=== PATIENT | male | born 1940 | race Caucasian/White ===

== ENCOUNTER 2021-06-01 18:56 | Emergency (ER) | payer MEDICARE, OTHER, SELFPAY ==
[2021-06-01] VITALS (37 sets, daily range): BP systolic 93–157; BP diastolic 39–103; PULSE 74–108; RESP 14–26; TEMP 36.8; O2SAT 91–984
--- NOTE | 2021-06-01 19:00 | RT.EKG_ITS ---
APPROVED REPORT Exam: Resting ECG Reason for Exam: chest pain Patient Location: E HR:85 bpm ECG Measurements Heart Rate 85 AXIS [place] 188 P 42 QRSd 94 QRS 40 QT 344 T -46 QTc 409 Conclusion Sinus rhythm...normal P axis, V-rate 60- 99 Nonspecific T abnormalities, inferior leads...T <-0.10mV, II III aVF. T wave inversion III and aVF. No STEMI. I have reviewed and interpreted ECG and agree with software generated interpretation.
--- NOTE | 2021-06-01 19:30 | DI.RAD_ITS ---
Exam(s) XR CHEST 2V PA LATERAL EXAM: XR CHEST 2V PA LATERAL CLINICAL HISTORY: cough, sob, r/o acute disease TECHNIQUE: COMPARISON: No exams were available for comparison FINDINGS: AP and lateral views of the chest were obtained. The heart is mildly enlarged. There are multiple s ternal sutures consistent with prior CABG surgery. Lungs appear grossly clear. No pleural effusion. Note is made that a left marker may be in appropriately positioned, repeat PA chest requested to excl ude situs inversus. IMPRESSION: RADIATION DOSE DELIVERED: Total DLP
[2021-06-01 19:36] LABS: Abs Immature Grans 0.05 10^3/uL (0.0-0.06); Absolute Basophil Count 0.03 10^3/uL (0.0-0.2); Absolute Eosinophil Count 0.19 10^3/uL (0.0-0.7); Absolute Lymphocyte Count 0.26 10^3/uL (1.2-3.4); Absolute Monocyte Count 0.38 10^3/uL (0.1-0.8); Absolute Neutrophil Count 6.82 10^3/uL (1.2-6.7); Basophils % 0.4; Eosinophils % 2.5; HCT 39.3 % (40.0-50.0); HGB 13.2 g/dL (13.5-17.5); Immature Grans % 0.6; Lymphocytes % 3.4; MCHC 33.6 % (32.0-36.0); MCV 95.4 fL (80-95); MPV 9.6 fL (8.0-11.0); Monocytes % 4.9; Neutrophils % 88.2; Nucleated RBC 0 %; Platelet Count 230 10^3/uL (130-400); RBC 4.12 10^6/uL (4.36-5.78); RDW 11.9 % (11.8-14.1); RDW-SD 41.1 fL; WBC 7.73 10^3/uL (4.4-10.8)
--- NOTE | 2021-06-01 19:44 | ED.GENADUL_ITS ---
Discharge Plan Disposition Patient Disposition: HOME Condition: Stable Discharge Details Clinical Impression: Cough, Shortness of breath, Lesion of lung, COPD exacerbation, Bronchitis Primary Care Provider: Susi Bunch ED Provider: Toño Gresham Home Meds and New Rx's Prescriptions: New prednisone 50 MG tablet 50 mg PO DAILY Qty: 5 RF: 0 azithromycin 250 mg tablet 250 mg PO DAILY 4 Days Qty: 4 RF: 0 Continued carvedilol [Coreg] 6.25 mg Tablet 6.25 mg PO BID RF: 0 aspirin 81 mg Tablet,Delayed Release (Dr/Ec) 81 mg PO QAM RF: 0 levothyroxine 75 mcg Tablet 75 mcg PO DAILY RF: 0 tamsulosin [Flomax] 0.4 mg Capsule 0.4 mg PO RF: 0 bupropion HCl 75 mg Tablet 75 mg PO BID RF: 0 duloxetine [Cymbalta] 20 mg Capsule,Delayed Release(Dr/Ec) 20 mg PO DAILY RF: 0 pramipexole 0.375 mg Tablet Extended Release 24 Hr 0.375 mg PO QHS RF: 0 Discharge Instructions Instructions: Acute Bronchitis (ED) Additional Instructions: At this time your symptoms are concerning for mild asthma exacerbation/COPD exacerbation in conjunction with bronchitis. Because of your age and risk factors I am concerned that this may transition into pneumonia. Please take the antibiotic azithromycin as directed, as well as the steroid prednisone as directed. These have been sent to your pharmacy on file. Please also use the albuterol inhaler that we have given you. Take 2 puffs every 4-6 hours as needed. As we discussed together there was an incidental lesion noted in your lungs, please follow-up closely with your primary care provider in the next month to have this reassessed and reimaged. If you notice any worsening of your symptoms, or any new symptoms such as vomiting, diarrhea, fever, chills, shortness of breath, chest pain, numbness, weakness, or fainting , please return immediately to the emergency department for reevaluation. Please follow up with your primary care provider as soon as possible for reassessment and reevaluation. As always, it was a pleasure participating in your medical care today. Referrals: Susi Bunch NP [Primary Care Provider] - Medical Decision Making <Wendy Frausto DO - Last Filed: 06/01/21 20:55> 80-year-old male with a history of COPD, hypertension, hyperlipidemia, CABG, high flow shunt presents with dry cough and shortness of breath for the past few days, worse today. Triage note reported chest pain the patient denies this. She appears comfortable and nontoxic. Oxygen saturation mid 90s on room air. He has scattered wheezing throughout. No extremity swelling. EKG notes a rate of 82, sinus, T wave inversion in 3 and aVF, no STEMI, no old EKG to compare. Differential diagnosis includes acute exacerbation of COPD, pneumonia, CHF exacerbation. History and presentation does not appear consistent with ACS, dissection or PE. Will obtain screening labs, chest x-ray, and give DuoNeb and Solu-Medrol. Due to report of chest pain in triage, will obtain a repeat troponin and EKG. Case endorsed such switch to follow-up on labs and imaging and final disposition. If symptoms improve and work-up unremarkable, likely plan for discharge home. Medical Records Medical records reviewed: Yes I reviewed the patient's medical records. ECG Data Attestation: I personally reviewed and interpreted this ECG (s) as follows: Interpretation: Rate of 85, sinus, T wave inversion in [address] No acute ST elevation or depression. [place] 188. QTc 409. <Toño Gresham, - Last Filed: 06/01/21 23:04> Patient was signed out to me by Dr. Frausto. Please refer to her HPI, physical exam assessment and plan. At time of signout we are pending repeat troponin, proBNP and chest x-ray. Chest x-ray results have returned, and show a small right apical nodular opacity, no other significant abnormalities. White count unremarkable, renal function and electrolytes normal. Troponin normal, proBNP unremarkable. No signs of significant fluid overload. Repeat lung exam demonstrates notably improved breath sounds. Patient states subjectively that he feels much better and feels comfortable going home. We will give the patient an inhaler with a spacer for home use. Suspect a component of reactive airway disease/COPD. Will give prescription for steroids from use. Based on the patient's age and risk factors no indication for inpatient admission, however I do feel that it would be beneficial to prescribe azithromycin to prevent potential worsening pulmonary issues and/or significant infection. At this time clinically he appears to demonstrate symptoms consistent with mild to moderate bronchitis. Discussed red flags which to return. is at bedside and plan was also explained to her. I have extensively reviewed the treatment plan and discharge instructions with the patient and their family. I have addressed all patient concerns at this time. The patient and family was made aware of what symptoms to monitor for that would warrant a return to the emergency department. Discussed the plan with the patient and family, they demonstrate verbal understanding and agreement with our assessment and plan at this time. The documentation in this chart was dictated using [employer] dictation software. Please excuse any dictation errors. FINDINGS: Lungs: Findings suggests volume loss in the right base. This could be postsurgical. A small right apical nodular opacity is also seen in measures about 12 mm. Pleural spaces: Unremarkable. No pleural effusion. No pneumothorax. Heart/Mediastinum: Mild cardiac enlargement. Postsurgical changes noted. Bones/joints: Unremarkable. IMPRESSION: Volume loss in the right base of uncertain origin. A small right apical nodular opacity. Correlation with priors is recommended, otherwise consider CT to exclude an endobronchial lesion. Thank you for allowing us to participate in the care of your patient. Dictated and Authenticated by: Cesar Nicole MD 06/01/2021 9:08 PM Eastern Time ([place] & [place]) HPI <Wendy Frausto, - Last Filed: 06/01/21 20:55> General Mode of arrival: ambulatory . Date/Time Provider Initiated Documentation: 06/01/21 19:04 . Limitations to Documentation: no limitations . Information obtained by: patient and family . HPI Narrative: Patient is a 80-year-old male with a history of COPD, CABG 2008, hypertension, hyperlipidemia, hydrocephalus with shunt, hypothyroidism who presents for cough and shortness of breath for the past 2 days, worse today. Denies any known sputum production. states that patient appeared more weak and fatigued tod ay. He does use a walker for ambulation but states he needs more assistance than usual. Patient and recently moved here from [place] 1 month ago and had their first follow-up appointment with Susi Bunch in August. Denies any leg pain or swelling. Denies any fever. Patient states he has had a normal appetite today. Triage note stated that patient had complained of some chest pain but he denies this at present. Related Data Home Medications Medication Instructions Recorded Confirmed aspirin 81 mg PO QAM 06/01/21 06/01/21 azithromycin 250 mg PO DAILY 4 Days #4 tab 06/01/21 bupropion HCl 75 mg PO BID 06/01/21 06/01/21 carvedilol [Coreg] 6.25 mg PO BID 06/01/21 06/01/21 duloxetine [Cymbalta] 20 mg PO DAILY 06/01/21 06/01/21 levothyroxine 75 mcg PO DAILY 06/01/21 06/01/21 pramipexole 0.375 mg PO QHS 06/01/21 06/01/21 prednisone 50 mg PO DAILY #5 tab 06/01/21 tamsulosin [Flomax] 0.4 mg PO 06/01/21 Previous Rx's Medication Instructions Recorded azithromycin 250 mg PO DAILY 4 Days #4 tab 06/01/21 prednisone 50 mg PO DAILY #5 tab 06/01/21 Allergies Allergy/AdvReac Type Severity Reaction Status Date / Time No Known Allergies Allergy Unverified 06/01/21 22:18 General Stated Complaint: SOB BAUTISTA: 2 Review of Systems <Wendy Frausto DO - Last Filed: 06/01/21 20:55> All systems reviewed & are unremarkable except as noted in HPI and below Constitutional Constitutional: Reports as per HPI, Denies chills and Denies fever(s) Eyes Eyes: Denies blurry vision ENT Ears, Nose, Mouth, and Throat: Denies dizziness, Denies sore throat and Denies throat swelling Cardiovascular Cardiovascular: Denies chest pain and Reports dyspnea Respiratory Respiratory: Reports cough and Reports dyspnea Gastrointestinal Gastrointestinal: Denies abdominal pain, Denies diarrhea and Denies vomiting Genitourinary Genitourinary: Denies hematuria and Denies dysuria Musculoskeletal Musculoskeletal: Denies back pain and Denies numbness Integumentary/Breasts Skin/Breast: Denies lesions and Denies rash Neurologic Neurologic: Denies dizziness, Denies localized weakness and Denies numbness Allergic/Immunologic Allergic/Immunologic: Denies throat swelling PFSH <Wendy Frausto DO - Last Filed: 06/01/21 20:55> Medical History (Updated 06/01/21 @ 21:37 by Toño Gresham DO) COPD (chronic obstructive pulmonary disease) HTN (hypertension) Hx of hyperlipidemia Hydrocephalus with shunt Hypothyroidism Thyroid disease Surgical History (Updated 06/01/21 @ 20:50 by Wendy Frausto DO) History of fusion of cervical spine Hx of CABG Family History (Updated 05/25/21 @ 13:31 by Malina Patino) Mother , 87 Cancer Father , 48 Heart disease Brother No problems noted. Daughter No problems noted. Daughter No problems noted. Maternal Grandfather , 64 Heart disease Paternal Grandfather , 64 Heart disease Maternal Grandmother , 97 No problems noted. Paternal Grandmother , 66 No problems noted. Social History (Updated 05/25/21 @ 13:29 by Malina Patino) Smoking/Tobacco Use Status: Former Tobacco Use tobacco type: cigarettes and pipe Quit Date: 09/02/82 Tobacco: How many years used: 31 Second Hand Exposure: No Smoking risk assessment performed?: Yes Alcohol Intake: current Alcohol Intake frequency: holidays/special occasions only Alcohol type: wine and hard liquor Drug use: Never Household members: spouse and family Housing: apartment Communication Needs: None Do you need help understanding health information?: Rarely Pets and animals: Yes Pets and animals: dog(s) Sexually active: No Do you think of yourself as: straight/heterosexual Current gender identity: male What is your relationship status?: How often do you talk on the phone with friends or family?: never How often do you get together with friends or relatives?: twice per week How often do you attend jewish or mosque services?: 1-3 times per year Do you belong to any clubs or organized social groups?: no Panel score (0-1 are the most socially isolated patients): 1 What type of physical activity do you participate in: walking Duration: < 15 minutes/day Frequency: daily Deyanira/[employer]ist: Jehovah'S Witness Special deyanira needs: Yes (last rights) Seatbelt use: always Helmet use: Yes Helmet use: always Drive intox or ride w/intox hazmat tanker driver: No Do you feel safe at home: Yes Do you feel safe in your relationship?: Yes Exam <Wendy Frausto DO - Last Filed: 06/01/21 20:55> Const General: cooperative and no acute distress HENMT Head: normal to inspection Ears: hearing grossly normal bilaterally and external ears normal Face and sinus: normal facial exam Throat: posterior oropharynx normal Eyes General: appearance normal, both eyes and all related structures EOM: EOM intact bilaterally Neck Neck: normal visual inspection and No submandibular swelling Lymphatic: no lymphadenopathy noted Chest Chest: normal inspection of the chest and no tenderness Resp Effort & Inspection: normal respiratory effort and able to speak in complete sentences Auscultation: diminished lung sounds bilaterally in the lower lung negron and wheezes scattered wheezes Cardio Rate: regular rate Rhythm: regular rhythm GI Inspection: normal to inspection Palpation: soft, not firm, not rigid and nontender Auscultation: normal bowel sounds Skin General skin exam: no rashes or lesions noted Neuro General: patient alert, patient awake and patient oriented x3 Cognition: normal cognition Speech: speech normal Motor: muscle tone normal throughout Sensory Exam: no sensory deficits noted Extrem General: normal to inspection, full ROM, capillary refill normal, no calf tenderness bilaterally and no edema Psych Appearance: grossly normal Mental Status: mental status grossly normal Speech and Movement: speech and movement normal Affect: normal affect Course <Wendy Frausto, DO - Last Filed: 06/01/21 20:55> Vital Signs Vital signs: Vital Signs Temperature 98.3 F 06/01/21 19:09 Pulse 89 06/01/21 19:09 Respiratory Rate 18 06/01/21 19:09 Blood Pressure 150/68 H 06/01/21 19:09 Pulse Oximetry 93 06/01/21 19:09 Temperature 98.3 F 06/01/21 19:09 Temperature Source Oral 06/01/21 19:09 Pulse 89 06/01/21 19:09 Respiratory Rate 18 06/01/21 19:13 Respiratory Effort 06/01/21 19:13 Blood Pressure 150/68 H 06/01/21 19:09 Pulse Oximetry 93 06/01/21 19:09 Lab/Test Results Lab/Test Results: Laboratory Tests Range/Units 06/01/21 19:30 WBC (4.4-10.8) 10^3/uL 7.73 RBC (4.36-5.78) 10^6/uL 4.12 L Hgb (13.5-17.5) g/dL 13.2 L Hct (40.0-50.0) % 39.3 L MCV (80-95) fL 95.4 H MCH (27.0-33.0) pg 32.0 MCHC (32.0-36.0) % 33.6 RDW (11.8-14.1) % 11.9 Plt Count (130-400) 10^3/uL 230 MPV (8.0-11.0) fL 9.6 Immature Gran % 0.6 Neutrophils % 88.2 Lymphocytes % 3.4 Monocytes % 4.9 Eosinophils % 2.5 Basophils % 0.4 Nucleated RBC % % 0 Absolute Neutrophils (1.2-6.7) 10^3/uL 6.82 H Absolute Lymphocytes (1.2-3.4) 10^3/uL 0.26 L Absolute Monocytes (0.1-0.8) 10^3/uL 0.38 Absolute Eosinophils (0.0-0.7) 10^3/uL 0.19 Absolute Basophils (0.0-0.2) 10^3/uL 0.03 Sign Out <Wendy Frausto DO - Last Filed: 06/01/21 20:55> Sign Out Data: Sign Out Comment: Follow-up on labs and imaging and final disposition. Plan for repeat troponin and EKG. If patient symptoms improved and work-up unremarkable, likely can plan for discharge to home. Last updated by Wendy Frausto DO at 06/01/21 19:57
[2021-06-01 19:51] LABS: ALT 35 U/L (16-63); AST 27 U/L (15-37); Albumin 3.4 g/dL (3.4-5.0); Alkaline Phosphatase 84 U/L (46-116); Anion Gap 9.5 mmol/L (3-11); BUN 16 mg/dL (7-18); Bilirubin, Total 0.5 mg/dL (0.2-1.0); CO2 25.5 mmol/L (21.0-32.0); Calcium 8.8 mg/dL (8.5-10.1); Chloride 106 mmol/L (98-107); Glucose 97 mg/dL (74-106); Magnesium 1.8 mg/dL (1.8-2.4); Potassium 4.2 mmol/L (3.5-5.1); Sodium 141 mmol/L (136-145); Total Protein 7.3 g/dL (6.4-8.2)
[2021-06-01 19:53] LABS: Troponin I < 0.05 ng/mL (<0.06)
[2021-06-01] MEDS: Albuterol/Ipratropium 3 ML UPD VIAL UPD ×2 (19:54→21:47)
[2021-06-01] MEDS: methylPREDNISolone SUCC 125 MG VIAL IVP (19:54)
--- NOTE | 2021-06-01 21:08 | DI.VRAD_ITS ---
PROCEDURE INFORMATION: Exam: XR Chest Exam date and time: 06/01/2021 8:36 PM Age: 80 years old Clinical indication: Other: Cough, SOB, R/O acute disease TECHNIQUE: Imaging protocol: XR of the chest. Views: 2 views. COMPARISON: No relevant prior studies available. FINDINGS: Lungs: Findings suggests volume loss in the right base. This could be postsurgical. A small right apical nodular opacity is also seen in measures about 12 mm. Pleural spaces: Unremarkable. No pleural effusion. No pneumothorax. Heart/Mediastinum: Mild cardiac enlargement. Postsurgical changes noted. Bones/joints: Unremarkable. IMPRESSION: Volume loss in the right base of uncertain origin. A small right apical nodular opacity. Correlation with priors is recommended, otherwise consider CT to exclude an endobronchial lesion. Dictated and Authenticated by: Cesar Nicole MD. Ordering:EPHRAIM Nguyen MD
[2021-06-01 21:32] LABS: NT-proBNP 357 pg/mL (<300)
[2021-06-01] MEDS: Albuterol HFA 8 GM 60 PUFF INH IH (21:39)
[2021-06-01] MEDS: AZITHROMYCIN 500 MG in Normal Saline 250 ML 250 MG IVPB (21:39)
[2021-06-01 22:10] LABS: Troponin I < 0.05 ng/mL (<0.06)
[2021-06-01] MEDS: Inhaler, Assist Device 1 EACH MC (23:01)
--- NOTE | 2021-06-01 23:37 | NUR.NOTE ---
Nursing Note: REFERAL SENT TO CM TO FOLLOW UP FOR GETTING HOME SUPPORTS IN PLACE 06/01/21
== END 2021-06-01 23:20 | disposition home or self-care (01) ==
LOC: ER 23:00
PROVIDERS: Physician Assistant; Emergency Provider Student in an Organized Health Care Education/Training Program
DX: J44.1 Chronic obstructive pulmonary disease with (acute) exacerbation (principal); R05 Cough; R06.02 Shortness of breath; R91.8 Other nonspecific abnormal finding of lung field; Z87.891 Personal history of nicotine dependence
CPT/HCPCS: 80053; 93005; 94640; 96365; 96375; 99284; 71046; 83735; 83880; 84484; 85025; 93010; J0456; J2930; J7620

== ENCOUNTER 2021-09-24 11:47 | Emergency (ER) | payer MEDICARE, OTHER, SELFPAY ==
[2021-09-24 11:57] VITALS: BP 135/61; PULSE 90; RESP 16; TEMP 36.6; O2SAT 98
[2021-09-24 12:00] VITALS: BP 124/67; PULSE 91; RESP 20; O2SAT 96
--- NOTE | 2021-09-24 12:00 | RT.EKG_ITS ---
APPROVED REPORT Exam: Resting ECG Reason for Exam: shortness of breath Patient Location: E HR:84 bpm ECG Measurements Heart Rate 84 AXIS [place] 182 P 39 QRSd 100 QRS 44 QT 346 T -61 QTc 409 Conclusion Sinus rhythm...normal P axis, V-rate 60- 99 Nonspecific T abnormalities, inferior leads...T <-0.10mV, II III aVF. Sinus. T wave inversion inferior leads. No STEMI. I have reviewed and interpreted ECG and agree with software generated interpretation.
--- NOTE | 2021-09-24 12:09 | ED.GENADUL_ITS ---
Discharge Plan Disposition Patient Disposition: HOME Condition: Stable Discharge Details Clinical Impression: Cough Primary Care Provider: Susi Bunch ED Provider: Wendy Frausto Home Meds and New Rx's Prescriptions: New doxycycline hyclate 100 mg tablet 100 mg PO BID 7 Days Qty: 14 RF: 0 prednisone 20 mg tablet See Rx Instructions .ROUTE .COMPLEX Qty: 12 RF: 0 benzonatate 100 mg capsule 100 mg PO TID PRN (Reason: cough) Qty: 10 RF: 0 Continued donepezil 10 mg tablet 10 mg PO DAILY Qty: 90 RF: 0 pramipexole 0.375 mg tablet extended release 24 hr 0.375 mg PO QHS Qty: 30 RF: 0 levothyroxine 75 mcg tablet 75 mcg PO DAILY Qty: 90 RF: 0 carvedilol [Coreg] 6.25 mg tablet 6.25 mg PO BID Qty: 90 RF: 0 duloxetine [Cymbalta] 20 mg capsule,delayed release(DR/EC) 60 mg PO DAILY RF: 0 aspirin 81 mg Tablet,Delayed Release (Dr/Ec) 81 mg PO QAM RF: 0 Discharge Instructions Instructions: Acute Cough (ED) Additional Instructions: Drink plenty of fluids and get plenty of rest. You are being sent home with an albuterol inhaler to use as needed and directed for cough, wheezing or shortness of breath. Prescriptions for cough medication, antibiotics and steroids have been sent electronically to your pharmacy. Start the cough medication today and take as needed and directed for coughing. You do not need to start the antibiotics and steroids unless your symptoms do not improve or worsen over the next few days such as persistent fevers, coughing up yellow or green mucus, or worsening shortness of breath. Follow-up with your primary care doctor in 1 week. Return to the emergency department with any worsening or new concerning symptoms. Stand Alone Forms: PENDING COVID-19 TESTING Discharge Data Discharge Physician: Wendy Frausto Medical Decision Making 81-year-old male with a history of COPD, hypertension, hyperlipidemia who presents for wet cough, shortness of breath, increased weakness and decreased appetite for the past 7 to 10 days. EKG notes a rate of 84, sinus, T wave inversion in inferior leads, no STEMI and nondiagnostic. Vitals within normal limits. Patient appears in no acute respiratory distress. He has rattling and rhonchi noted in right chest. No wheezing or crackles noted. No lower extremity edema. Labs and imaging reviewed. Normal white blood cell count. Troponin negative. BNP within normal limits. Chest x-ray negative for acute findings. Patient reassessed and he feels better. Oxygen saturation 97% on room air. Lung sounds reassessed and no wheezing or crackles noted. Patient and feel comfortable with patient going home. Discussed that his symptoms could be a viral process and do not see an indication for acute antibiotics at this time but as we are going into the holiday weekend, will send home with an albuterol inhaler as well as prescriptions for cough medication, antibiotics and steroids. Advised to hold on the antibiotics steroids unless symptoms do not improve or worsen over the next few days. Advised to follow up with the primary care doctor for re-evaluation. Usual and customary return precautions given prior to discharge. Medical Records Medical records reviewed: Yes I reviewed the patient's medical records. Imaging Data Radiologic Study: Radiologist's impression: XR CHEST 2V PA LATERAL CLINICAL HISTORY: cough, sob, r/o acute chf vs pneumonia TECHNIQUE: COMPARISON: CR,XR XR CHEST 2V PA LATERAL from 06/01/2021 FINDINGS: The heart is not enlarged. There are mediastinal vascular clips consistent with prior CABG surgery. There is an apparent ventriculoperitoneal shunt. The lungs appear grossly clear. No pleural effusion is seen. IMPRESSION: No evidence of acute process. Lab Data Lab results reviewed: Yes I reviewed the patient's lab results. Labs: Laboratory Tests Range/Units 09/24/21 09/24/21 12:20 12:20 WBC (4.4-10.8) 10^3/uL 8.36 RBC (4.36-5.78) 10^6/uL 4.35 L Hgb (13.5-17.5) g/dL 13.6 Hct (40.0-50.0) % 42.0 MCV (80-95) fL 96.6 H MCH (27.0-33.0) pg 31.3 MCHC (32.0-36.0) % 32.4 RDW (11.8-14.1) % 12.0 Plt Count (130-400) 10^3/uL 240 MPV (8.0-11.0) fL 9.2 Immature Gran % 0.4 Neutrophils % 77.5 Lymphocytes % 10.8 Monocytes % 7.4 Eosinophils % 3.5 Basophils % 0.4 Nucleated RBC % % 0 Absolute Neutrophils (1.2-6.7) 10^3/uL 6.49 Absolute Lymphocytes (1.2-3.4) 10^3/uL 0.90 L Absolute Monocytes (0.1-0.8) 10^3/uL 0.62 Absolute Eosinophils (0.0-0.7) 10^3/uL 0.29 Absolute Basophils (0.0-0.2) 10^3/uL 0.03 Sodium (136-145) mmol/L 140 Potassium (3.5-5.1) mmol/L 3.8 Chloride (98-107) mmol/L 105 Carbon Dioxide (21.0-32.0) mmol/L 27.1 Anion Gap (3-11) mmol/L 7.9 BUN (7-18) mg/dL 24 H Creatinine (0.70-1.30) mg/dL 1.2 Estimated GFR/1.73 m2 (mL/min/1.73m2) 57.82 Glucose (74-106) mg/dL 97 Calcium (8.5-10.1) mg/dL 9.1 Magnesium (1.8-2.4) mg/dL 2.0 Total Bilirubin (0.2-1.0) mg/dL 0.6 AST (15-37) U/L 11 L ALT (16-63) U/L 15 L Alkaline Phosphatase (46-116) U/L 90 Troponin I (<0.06) ng/mL < 0.05 NT-Pro-B Natriuret Pep (<300) pg/mL 128 Total Protein (6.4-8.2) g/dL 7.6 Albumin (3.4-5.0) g/dL 3.4 ECG Data Attestation: I personally reviewed and interpreted this ECG (s) as follows: Interpretation: Rate of 84, sinus, T wave inversion in inferior leads. No STEMI. HI 182. QRS 100. QTc 409. HPI General Mode of arrival: wheelchair . Date/Time Provider Initiated Documentation: 09/24/21 11:52 . Limitations to Documentation: physical limitation . Information obtained by: patient and family . HPI Narrative: Patient is an 81-year-old male with a history of COPD, hypertension, hyperlipidemia presents for wet cough, shortness of breath, increased weakness and decreased appetite for the past 7 to 10 days. Patient presents with at bedside who states that patient uses a walker but has been shuffling more lately which she thinks is due to his weakness. She states she has not been eating or drinking much. Patient has a wet cough but denies any sputum production. Patient denies any chest pain, vomiting or diarrhea. states that he has had soft or looser stools than usual but denies any rectal bleeding. Related Data Home Medications Medication Instructions Recorded Confirmed aspirin 81 mg PO QAM 06/01/21 09/24/21 benzonatate 100 mg PO TID PRN #10 cap 09/24/21 carvedilol 6.25 mg tablet 6.25 mg PO BID #90 tab 09/24/21 09/24/21 donepezil 10 mg tablet 10 mg PO DAILY #90 tab 09/24/21 09/24/21 doxycycline hyclate 100 mg PO BID 7 Days #14 tab 09/24/21 duloxetine [Cymbalta] 60 mg PO DAILY 09/24/21 09/24/21 levothyroxine 75 mcg tablet 75 mcg PO DAILY #90 tab 09/24/21 09/24/21 pramipexole 0.375 mg 0.375 mg PO QHS #30 tab 09/24/21 09/24/21 tablet,extended release 24 hr prednisone See Rx Instructions .ROUTE 09/24/21 .COMPLEX #12 tab Previous Rx's Medication Instructions Recorded benzonatate 100 mg PO TID PRN #10 cap 09/24/21 carvedilol 6.25 mg tablet 6.25 mg PO BID #90 tab 09/24/21 donepezil 10 mg tablet 10 mg PO DAILY #90 tab 09/24/21 doxycycline hyclate 100 mg PO BID 7 Days #14 tab 09/24/21 levothyroxine 75 mcg tablet 75 mcg PO DAILY #90 tab 09/24/21 pramipexole 0.375 mg 0.375 mg PO QHS #30 tab 09/24/21 tablet,extended release 24 hr prednisone See Rx Instructions .ROUTE 09/24/21 .COMPLEX #12 tab Allergies Allergy/AdvReac Type Severity Reaction Status Date / Time clindamycin Allergy Intermediate rash/hives Verified 09/24/21 12:00 General Stated Complaint: RespSymp BAUTISTA: 3 Review of Systems All systems reviewed & are unremarkable except as noted in HPI and below Constitutional Constitutional: Reports as per HPI, Denies chills, Denies fever(s), Reports poor appetite and Reports weakness Eyes Eyes: Denies blurry vision ENT Ears, Nose, Mouth, and Throat: Denies dizziness, Denies sore throat and Denies throat swelling Cardiovascular Cardiovascular: Denies chest pain and Reports dyspnea Respiratory Respiratory: Reports cough and Reports dyspnea Gastrointestinal Gastrointestinal: Denies abdominal pain, Denies diarrhea and Denies vomiting Genitourinary Genitourinary: Denies hematuria and Denies dysuria Musculoskeletal Musculoskeletal: Denies back pain and Denies numbness Integumentary/Breasts Skin/Breast: Denies lesions and Denies rash Neurologic Neurologic: Denies dizziness, Denies localized weakness, Denies numbness and Reports weakness Allergic/Immunologic Allergic/Immunologic: Denies throat swelling [facility] Active Problem List (Updated 09/24/21 @ 14:43 by Wendy Frausto DO) Cough (Acute) Alzheimer disease (Chronic) Advanced directives, counseling/discussion (Acute) Poor balance (Acute) Weakness generalized (Acute) At high risk for falls (Acute) Hypothyroidism (Acute) Cough (Acute) Shortness of breath (Acute) Lesion of lung (Acute) Medical History (Updated 09/24/21 @ 14:43 by Wendy Frausto DO) Bronchitis COPD (chronic obstructive pulmonary disease) HTN (hypertension) Hx of hyperlipidemia Hydrocephalus with shunt Thyroid disease Surgical History 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 Daughter No problems noted. Daughter No problems noted. Maternal Grandfather , 64 Heart disease Paternal Grandfather , 64 Heart disease Maternal Grandmother , 97 No problems noted. Paternal Grandmother , 66 No problems noted. Social History (Updated 08/28/21 @ 07:19 by Arnel Kumari) Smoking/Tobacco Use Status: Former Tobacco Use tobacco type: cigarettes and pipe Quit Date: 09/02/82 Tobacco: How many years used: 31 Second Hand Exposure: No Smoking risk assessment performed?: Yes Alcohol Intake: current Alcohol Intake frequency: holidays/special occasions only Alcohol type: wine and hard liquor Drug use: Never Household members: spouse and family Housing: apartment Communication Needs: None Do you need help understanding health information?: Rarely Pets and animals: Yes Pets and animals: dog(s) Sexually active: No Do you think of yourself as: straight/heterosexual Current gender identity: male What is your relationship status?: How often do you talk on the phone with friends or family?: never How often do you get together with friends or relatives?: twice per week How often do you attend roman catholic or restorationist services?: 1-3 times per year Do you belong to any clubs or organized social groups?: no Panel score (0-1 are the most socially isolated patients): 1 What type of physical activity do you participate in: walking Duration: < 15 minutes/day Frequency: daily Deyanira/Orthodoxy: Gnosticist Special deyanira needs: Yes (last rights) Seatbelt use: always Helmet use: Yes Helmet use: always Drive intox or ride w/intox food service driver: No Do you feel safe at home: Yes Do you feel safe in your relationship?: Yes Exam Const General: cooperative and no acute distress HENMT Head: normal to inspection Face and sinus: normal facial exam Eyes General: appearance normal, both eyes and all related structures EOM: EOM intact bilaterally Neck Neck: normal visual inspection and No submandibular swelling Lymphatic: no lymphadenopathy noted Chest Chest: normal inspection of the chest and no tenderness Resp Effort & Inspection: normal respiratory effort and able to speak in complete sentences Auscultation: clear to auscultation bilaterally and rhonchi (rattling) right upper and right lower Cardio Rate: regular rate Rhythm: regular rhythm GI Inspection: normal to inspection Palpation: soft, not firm, not rigid and nontender Auscultation: normal bowel sounds Skin General skin exam: no rashes or lesions noted Neuro General: patient alert, patient awake and patient oriented x3 Cognition: normal cognition Speech: speech normal Motor: muscle tone normal throughout Sensory Exam: no sensory deficits noted Extrem General: normal to inspection, full ROM, capillary refill normal, no calf tenderness bilaterally and no edema Psych Appearance: grossly normal Mental Status: mental status grossly normal Speech and Movement: speech and movement normal Affect: normal affect Course Vital Signs Vital signs: Vital Signs Temperature 97.9 F 09/24/21 11:57 Pulse 90 09/24/21 11:57 Respiratory Rate 16 09/24/21 11:57 Blood Pressure 135/61 09/24/21 11:57 Pulse Oximetry 98 09/24/21 11:57 Temperature 97.9 F 09/24/21 11:57 Temperature Source Skin 09/24/21 11:57 Pulse 90 09/24/21 11:57 Respiratory Rate 16 09/24/21 11:57 Respiratory Effort Non-Labored 09/24/21 12:03 Blood Pressure 135/61 09/24/21 11:57 Blood Pressure Position Sitting 09/24/21 11:57 Pulse Oximetry 98 09/24/21 11:57 Oxygen Delivery Method Room Air 09/24/21 11:57 Oxygen Flow Rate 0 09/24/21 11:57
[2021-09-24 12:15] VITALS: BP 119/63; PULSE 91; RESP 16; O2SAT 98
[2021-09-24 12:26] LABS: Abs Immature Grans 0.03 10^3/uL (0.0-0.06); Absolute Basophil Count 0.03 10^3/uL (0.0-0.2); Absolute Eosinophil Count 0.29 10^3/uL (0.0-0.7); Absolute Monocyte Count 0.62 10^3/uL (0.1-0.8); Absolute Neutrophil Count 6.49 10^3/uL (1.2-6.7); Basophils % 0.4; Eosinophils % 3.5; HGB 13.6 g/dL (13.5-17.5); Immature Grans % 0.4; Lymphocytes % 10.8; MCH 31.3 pg (27.0-33.0); MCHC 32.4 % (32.0-36.0); MCV 96.6 fL (80-95); MPV 9.2 fL (8.0-11.0); Monocytes % 7.4; Neutrophils % 77.5; Nucleated RBC 0 %; Platelet Count 240 10^3/uL (130-400); RBC 4.35 10^6/uL (4.36-5.78); RDW-SD 42.5 fL; WBC 8.36 10^3/uL (4.4-10.8)
--- NOTE | 2021-09-24 12:40 | DI.RAD_ITS ---
Exam(s) XR CHEST 2V PA LATERAL EXAM: XR CHEST 2V PA LATERAL CLINICAL HISTORY: cough, sob, r/o acute chf vs pneumonia TECHNIQUE: COMPARISON: CR,XR XR CHEST 2V PA LATERAL from 06/01/2021 FINDINGS: The heart is not enlarged. There are mediastinal vascular clips consistent with prior CABG surgery. There is an apparent ventriculoperitoneal shunt. The lungs appear grossly clear. No pleural effusi on is seen. IMPRESSION: No evidence of acute process. RADIATION DOSE DELIVERED: Total DLP
[2021-09-24 12:46] LABS: ALT 15 U/L (16-63); AST 11 U/L (15-37); Albumin 3.4 g/dL (3.4-5.0); Alkaline Phosphatase 90 U/L (46-116); Anion Gap 7.9 mmol/L (3-11); BUN 24 mg/dL (7-18); Bilirubin, Total 0.6 mg/dL (0.2-1.0); CO2 27.1 mmol/L (21.0-32.0); CREATININE 1.2 mg/dL (0.70-1.30); Calcium 9.1 mg/dL (8.5-10.1); Chloride 105 mmol/L (98-107); Estimated GFR 57.82 (mL/min/1.73m2); Glucose 97 mg/dL (74-106); NT-proBNP 128 pg/mL (<300); Potassium 3.8 mmol/L (3.5-5.1); Sodium 140 mmol/L (136-145); Total Protein 7.6 g/dL (6.4-8.2)
[2021-09-24 12:47] LABS: Troponin I < 0.05 ng/mL (<0.06)
[2021-09-24] MEDS: Normal Saline 250 ML IV (13:27)
[2021-09-24] MEDS: Albuterol/Ipratropium 3 ML UPD VIAL UPD (13:30)
[2021-09-24 14:29] VITALS: BP 135/71; PULSE 85; TEMP 36.4; O2SAT 100
[2021-09-24] MEDS: Albuterol HFA 8 GM 60 PUFF INH IH (14:55)
[2021-09-24 15:15] VITALS: BP 133/67; PULSE 88; RESP 18; TEMP 37; O2SAT 98
[2021-09-25 15:49] LABS: COVID-19 RT-PCR UVMMC Result Negative (Negative)
== END 2021-09-24 17:28 | disposition home or self-care (01) ==
PROVIDERS: Emergency Provider Physician Assistant
DX: R05.9 Cough, unspecified (principal); R06.02 Shortness of breath; Z20.822 Contact with and (suspected) exposure to COVID-19
CPT/HCPCS: 36415; 80053; 93005; 96360; 99284; U0003; U0005; 71046; 83735; 83880; 84484; 85025; 93010; J7620

== ENCOUNTER 2021-10-04 01:41 | Outpatient (CLI) | payer MEDICARE, OTHER, SELFPAY ==
--- OUTSIDE RECORDS SUMMARY | 2021-10-04 01:43 | XMS_ITS | Encounter Summary ---
:[address] [facility] [address] [place] [address] Care Team Providers Name Role Phone Angelika Jasso DO Unavailable Elizabeth Jerry PA-C Primary Care Provider [phone] Romero, DO Unavailable Reason for Visit Auth/Cert Specialty Diagnoses / Procedures Referred By Contact Refer red To Contact Referral ID Status Reason Start Date Expiration Date Visits Requ ested Visits Authorized [id number] 1 Encounter Details Date Type Department Care Team Description 09/08/2019 Home Care Visit [facility] Aman Rachel, PT PT OASIS DISCHARGE [facility] [phone] [address] [place] [address] (Work) [address] [place] [address] Social History Tobacco Use Types Packs/Day Years Used Date Never Assessed Sex Assigned at Date Recorded Not on file documented as of this encounter Last Filed Vital Signs Vital Sign Reading Time Taken Comments Blood Pressure 129/59 09/08/2019 9:03 AM [facility] Pulse 76 09/08/2019 9:03 AM [facility] Temperature - - Respiratory Rate - - Oxygen Saturation 96% 09/08/2019 9:03 AM [facility] Inhaled Oxygen Concentration - - Weight - - Height - - Body Mass Index - - documented in this encounter Plan of Treatment Not on filedocumented as of this encounter Visit Diagnoses Not on filedocumented in this encounter Home Health Visit - Care Plan Visit Details Visit Type - PT OASIS DISCHARGE Discipline - Physical Therapy Problems Problem Description Start Date Status Goals Interventions Physical PHYSICAL THERAPY 06/16/2019 Active 1 goal linked to Therapy General GENERAL ASSESSMENT scheduled/do cumen Assessment jessee intervention Disciplines: Physical Therapy Estim/Ultrasoun Patient is 06/16/2019 Active 1 goal linked to d for pain experiencing pain scheduled/documen control jessee intervention Disciplines: Physical Therapy Home Safety Assessment of home 06/16/2019 Active 1 goal linked to Disciplines: environment/patien scheduled/documen Physical t status indicates jessee intervention Therapy that patient is at increased risk for falls. PT Gait Gait evaluation 06/16/2019 Active 1 goal linked to 2 g oal Training and training in scheduled/documen interve ntions Disciplines: appropriate use of jessee intervention sched uled/document Physical assistive devices ed in t his visit Therapy PT Establish or Develop or modify 06/16/2019 Active 1 goal linked to 1 goal Upgrade Home home exercise scheduled/documen in tervention Program program jessee intervention scheduled/d ocument Disciplines: ed in this visi t Physical Therapy PT Transfer Patient 06/16/2019 Active 1 goal linked to Training demonstrates scheduled/documen Disciplines: impaired ability jessee intervention Physical to perform Therapy transfers and/or bed mobility safely Goals Goal Associated Problem Outcome Goal Met? Visit Not es Physical Therapy General Physical Therapy General Completed Yes Assessment Assessment Description: Patient will demonstrate an overall improvement in health status with the implementation of appropriate interventions by the end of the episode of care. Pain Estim/Ultrasound for Completed Yes Description: pain control Patient/caregiver will verbalize understanding of pain control recommendations and pain will be controlled to patient's satisfaction by the end of the episode of care. Home Safety Home Safety Completed Yes Description: Patient/caregiver will implement strategies to reduce fall risk evidenced by reduced frequency of falls and/or demonstrate improvement on standardized testing. Patient/caregiver demonstrates independence via teach back method for strategies to prevent falls, all by end of episode of care. PT Gait Training PT Gait Training Completed Yes Description: Patient will ambulate 400 feet with FWW to enable him to gain independence in and out of home by the end of the episode of care. PT Establish Or Upgrade Home PT Establish or Upgrade Completed Y es Program Home Program Description: Patient/caregiver will verbalize understanding of home exercise program and progression throughout the episode of care. PT Transfer Training PT Transfer Training Completed Yes Description: Patient/caregiver will be independent in all transfers and bed mobility utilizing equipment as needed by the end of the episode of care. Interventions Intervention Associated Problem/Goal Status Variance Visi t Notes Instruct on stair Problem: PT Gait Training Completed stairs up/down 4 climbing Goal: PT Gait Training steps X 2 with CGA Description: Instruct patient in stair climbing. Pt gait training Problem: PT Gait Training Completed ambula jessee 2X 60 feet Description: Goal: PT Gait Training with FWW and SBA Evaluate and instruct patient/caregiver in gait training using FWW. PT establish or upgrade Problem: PT Establish or Upgrade Home Pr ogram Completed reviewed seated and home program Goal: PT Establish Or Upgrade Home Program standing exercises Description: and transfer/gai t Home exercise program traini ng for HEP. for strengthening, gait/transfer training, stair training (up to 4 steps), home safety. documented in this encounter Care Teams Chucker Relationship Specialty Start Date End Date Elizabeth Jerry, PCP - General Family Medicine 06/15/[address] [facility] [place] [id number] Romero Consulting Physician Physical Medicine and 06/15/19 [facility], Rehabilitation [address] [place], [place] [id number] Romero Consulting Physician Physical Medicine and 06/15/19 [facility], [facility] [address] [place], [place] [id number] documented as of this encounter
--- OUTSIDE RECORDS SUMMARY | 2021-10-04 01:43 | XMS_ITS | Clinical Summary ---
:1940 Author Organization [facility] Address [address] [place] [address] Care Team Providers Name Role Phone Angelika Jasso DO Unavailable Elizabeth Jerry PA-C Primary Care Provider [phone] Romero DO Unavailable Medications Medication Sig Dispensed Refills Start Date End Date Status lisinopril (PRINIVIL) 10 Take 20 mg by 0 08/16/2017 Active mg tablet mouth daily before breakfast. simvastatin (ZOCOR) 40 Take 40 mg by 0 09/16/2016 Active mg tablet mouth daily before breakfast. levothyroxine Take 50 mcg by 0 A ctive (SYNTHROID, LEVOTHROID) mouth daily at 50 mcg tablet 6am. famotidine (PEPCID) 20 Take 20 mg by 0 Active mg tablet mouth 2 (two) times daily as needed for Heartburn. potassium chloride Take 10 mEq by 0 Active (KLOR-CON 10) 10 MEQ mouth daily tablet after lunch. pramipexole (MIRAPEX) Take 0.125 mg by 0 Active 0.125 mg tablet mouth daily after lunch. furosemide (LASIX) 40 mg Take 40 mg by 0 Active tablet mouth daily. DULoxetine (CYMBALTA) 60 Take 60 mg by 0 Active mg capsule mouth daily after lunch. Social History Tobacco Use Types Packs/Day Years Used Date Never Assessed Sex Assigned at Date Recorded Not on file Last Filed Vital Signs Vital Sign Reading Time Taken Comments Blood Pressure 129/59 09/08/2019 9:03 AM [facility] Pulse 76 09/08/2019 9:03 AM [facility] Temperature - - Respiratory Rate - - Oxygen Saturation 96% 09/08/2019 9:03 AM [facility] Inhaled Oxygen Concentration - - Weight - - Height - - Body Mass Index - - Plan of Treatment Not on file Insurance Payer Benefit Plan / Subscriber ID Effective Dates Phone Addre ss Type Group MEDICARE MEDICARE PART [id number] 2006-Ariadna [phone] [id number] Medicare A B t 1 DANYA ORTIZ [id number] Care Teams Inoculator Relationship Specialty Start Date End Date Elizabeth Jerry, PCP - General Family Medicine 06/15/19 [facility] [address] [place] [address] Romero, Consulting Physician Physical Medicine and 06/15/19 [facility], DO Rehabilitation [address] [facility] [address] [place], [place] [id number] Romero, Consulting Physician Physical Medicine and 06/15/19 [facility] [address] [facility] [address] [place], [place] [id number]
--- OUTSIDE RECORDS SUMMARY | 2021-10-04 01:43 | XMS_ITS ---
:1940 Author Care Team Providers Name Role Phone JESUS MAGANA OTHER [phone] EDY JAIME MD OTHER [phone] PRIYA MANCINI Primary Care Provider [phone] Allergies Code Code System Name Reaction Severity Status Onset NKDA ? Medications Name Status Start Date Stop Date ? ? amoxicillin 875 mg-potassium clavulanate 125 mg tablet Unknown ? Not available TAKE 1 TABLET BY MOUTH TWICE A DAY WITH FOOD clindamycin HCl 300 mg capsule Active ? N ot available TAKE ONE CAPSULE BY MOUTH EVERY 6 HOURS FOR 10 DAYS duloxetine 60 mg capsule,delayed release Active ? Not available TAKE ONE CAPSULE BY MOUTH EVERY DAY Fluvirin 9105-0315 45 mcg (15 mcg x 3)/0.5 mL intramuscular susp ension Active ? Not available ADM 0.5ML UTD Fluzone High-Dose (PF) 180 mcg/0.5 mL intramuscular syri nge Active ? Not available TO BE ADMINISTERED BY PHARMACIST FOR IMMUNIZATION furosemide Active ? Not available 40 mg daily Klor-Con 10 Active ? Not available levothyroxine Active ? Not available lisinopril 20 mg tablet Active ? Not avai lable Take 1 tablet every day by oral route. naproxen 500 mg tablet Active ? Not avail able TAKE 1 TABLET BY MOUTH EVERY 12 HOURS WITH FOOD Nexium 40 mg capsule,delayed release Active ? Not available Take 1 capsule every day by oral route. Nexium IV Unknown ? Not available pramipexole 0.125 mg tablet Active ? Not available TAKE 1 TABLET BY MOUTH EVERY NIGHT AT BEDTIME promethazine 6.25 mg-codeine 10 mg/5 mL syrup Active ? Not available TAKE 1 TEASPOONFUL BY MOUTH EVERY 8 HOURS NEEDED FOR COUGH simvastatin 40 mg tablet Active ? Not jannie ilable Take 1 tablet every day by oral route. sulfamethoxazole 800 mg-trimethoprim 160 mg tablet Active ? Not available TAKE 1 TABLET BY MOUTH TWICE A DAY testosterone cypionate 200 mg/mL intramuscular oil Active ? Not available INJECT 1 ML EVERY 3 WEEKS tetracycline 250 mg capsule Active ? Not available Take 1 capsule every 6 hours by oral route. Problems Name Status Onset Date Source ? Normal Pressure Hydrocephalus Active ? En counter Idiopathic Progressive Polyneuropathy Active ? Encounter Impairment of Balance Active ? Encounter Abnormal Gait Active ? Encounter Complaining of Backache Active ? Encounte r Procedures Date Name Performed by ? 11/02/2012 Spinal Surgery Information not avai lable Notes: ACDF 11/02/2008 Heart Surgery Information not avai lable Notes: quad bi pass 11/02/2008 Spinal Surgery Information not avai lable Notes: lumbar 07/25/2014 Electromyogram/nerve Conduction Study In formation not available Results Lab Results Date Name Specimen Result Interpretation Description Value Range Status Address ? 08/19/2014 Glucose High Glucose 114 mg/dL 65 - 99 Final [facility] Tolerance (Baseline) mg/dL Lab oratories, Test, 2-Hour [address] [facility], T em[place] ? ? ? Glucose (60 133 mg/dL not Final [facility] Min.) establish Laborat ories, ed mg/dL L [address] [facility], T empe ? ? ? Glucose (120 114 mg/dL 65 - 139 Final [facility] Min.) mg/dL Laboratori es, [address] [facility], T empe 08/19/2014 Protein ? Volume (mL): 1 ? Final [facility] Electrophoresi La elizatories, s, 24-hr Urine LL C: [address] [facility], T em[place] ? ? ? Duration (hr): 1 ? Final [facility] Laboratori es, [address] [facility], T empe ? ? ? Volume (mL): 2022 ? Final [facility] Laboratori es, [address] [facility], T empe ? ? ? Duration (hr): 24 ? Final [facility] Laboratori es, [address] [facility], T empe ? ? ? Protein, 8 mg/dL not Final [facility] Urine, Random establish Laboratories, ed mg/dL L [address] [facility], T empe ? ? High Protein, 162 <=137 Final [facility] Urine, 24 Hour mg/day mg/day La elizatories, [address] [facility], T empe ? ? ? Albumin 162.0 not Final [facility] mg/day establish Laborat ories, ed mg/day L [address] [facility], T empe ? ? ? % Albumin 100 % 70 - 100 Final [facility] % Laboratori es, [address] [facility], T empe ? ? ? Globulin 0.0 not Final [facility] mg/day establish Laborat ories, ed mg/day L [address] [facility], T empe ? ? ? Interpretation see ? Final [facility] comment Laborator ies, [address] [facility], T empe 08/11/2014 Vitamin B1 ? Vitamin B1, 109 78-185 Fin al [facility] (Thiamine), Blood nmol/L nmol/L Labor atories, Blood [address] [facility], T empe 08/11/2014 Vitamin B6 ? Vitamin B6, 3.5 NG/mL 2.1-21. 7 Final [facility] (Pyridoxine), Plasma NG/mL Lab oratories, Plasma [address] [facility], T empe 08/11/2014 Cryoglobulin, ? Cryoglobulins negative neg ative Final [facility] Qualitative, Labo ratories, Serum [address] [facility], T empe 08/11/2014 ESR ? Erythrocyte 14 mm/HR 0 - 20 Final [facility] (Erythrocyte Sedimentation mm/HR Laboratories, [facility] : [address]), Blood Wash [facility] 109, T empe 08/11/2014 Immunoglobulin ? Igg 988 mg/dL 694 - Fi nal [facility] s Iga+igg+igm, [address], Quantitative, mg/dL LLC : [address] [facility], T empe ? ? ? Iga 258 mg/dL 81 - 463 Final [facility] mg/dL Laboratori es, [address] [facility], T empe ? ? ? Igm 64 mg/dL 48 - 271 Final [facility] mg/dL Laboratori es, [address] [facility], T empe ? ? ? Juju . ? Final [facility] Interpretation La boratories, [address] [facility], T empe 08/11/2014 Vitamin B12, ? Vitamin B12 325 pg/mL 243 - 894 Final [facility] Serum pg/mL Laboratori es, [address] [facility], T empe 08/11/2014 HbA1C High Hemoglobin a1C 6.1 % <=5.6 % Cirilo rust [facility] (Hemoglobin Labor atories, a1C), Blood [address] [facility], T empe ? ? ? Estimated 128 not Final [facility] Average Glucose establish Laboratories, (EAG) ed [address] [facility], T empe 08/11/2014 FLOYD ? FLOYD Screen negative negative Jaycee cohn [facility] (Antinuclear Labo ratories, Antibodies) L [facility] Screen, [facility] 08/11/2014 [place] [facility] + Lockmaker ? Sm/sail finisher hand negative negative Final [facility] Ab, Serum, Antibodies La boratories, Reflex Sm L [address] [facility], T empe 08/11/2014 Sjogren ? ss-B (La) negative negative Jaycee cohn [facility] Antibody Panel Antibody Laboratories, (Ssa, Ssb, Ro, LL C: [address]), Serum Washin [facility] 109, T empe ? ? ? ss-A (RO) negative negative Final [facility] Antibody Laborato ree, [address] [facility], T empe 08/11/2014 Protein ? Creatinine, 84 mg/dL not Jaycee l [facility] Electrophoresi Urine, Random establish Laboratories, s, 24-hr Urine ed mg/dL [address] [facility] 109, T empe ? ? ? Protein, 9 mg/dL not Final [facility] Urine, Random establish Laboratories, ed mg/dL L [address] [facility], T empe ? ? ? Protein, 107 mg/g 15 - 170 Final [facility] Urine, creat mg/g Laboratori es, Normalized creat L [address] [facility], T empe ? ? ? Albumin 9.0 mg/dL not Final [facility] establish Laborat ories, ed mg/dL L [address] [facility], T empe ? ? ? % Albumin 100 % 70 - 100 Final [facility] % Laboratori es, [address] [facility], T empe ? ? ? Globulin 0.0 mg/dL not Final [facility] establish Laborat ories, ed mg/dL L [address] [facility] 109, T empe ? ? ? Interpretation see ? Final [facility] comment Laborator ies, [address] [facility] 109, T empe 08/11/2014 Copper, Serum ? Copper, 93 mcg/dL 70 - 175 Final [facility] or Plasma Serum/plasma mcg/dL L aboratories, [address] [facility] 109, T empe 08/11/2014 Zinc, Serum or Low Zinc, 49 mcg/dL 60 - 130 Final [facility] Plasma Plasma/serum mcg/dL Labo ratories, [address] [facility] 109, T empe 08/11/2014 RPR (Rapid ? RPR Screen nonreacti nonreact i Final [facility] Plasma ve ve Laboratori es, Reagin), Serum LL C: [address] [facility], T empe Past Encounters None recorded. Social History Tobacco Smoking Status Former Smoker Notes: quit Vaccine List None recorded. Plan of Care Reminders Provider Appointments None ? ? recorded. Lab None ? ? recorded. Referral None ? ? recorded. Procedures None ? ? recorded. Surgeries None ? ? recorded. Imaging None ? ? recorded. Vitals 02/22/2015 10:00AM ESTABLISHED PATIENT FOLLOW UP Height Weight BMI Blood Pressure 5 ft 10 in 248 lbs 35.6 kg/m2 138/76 mm[Hg] 08/23/2014 09:30AM EMG/NCV Height Weight BMI Blood Pressure 5 ft 10.5 in 244 lbs 34.5 kg/m2 144/88 mm[Hg] 07/25/2014 10:00AM NEW PATIENT CONSULT 60 Height Weight BMI Blood Pressure 5 ft 9 in 235 lbs 34.7 kg/m2 134/68 mm[Hg]
--- OUTSIDE RECORDS SUMMARY | 2021-10-04 01:44 | XMS_ITS | Encounter Summary ---
:1940 Author Organization [facility] Address [address] [place] [address] Care Team Providers Name Role Phone Angelika Jasso DO Unavailable Elizabeth Jerry PA-C Primary Care Provider [phone] Romero, DO Unavailable Reason for Visit Auth/Cert Specialty Diagnoses / Procedures Referred By Contact Refer red To Contact Referral ID Status Reason Start Date Expiration Date Visits Requ ested Visits Authorized [id number] 1 1 Encounter Details Date Type Department Care Team Description 08/25/2019 Home Care Visit [facility] Home Aman Rachel, PT PT HOME VISIT Health [address] [place] [address] [address] [place] [address] Social History Tobacco Use Types Packs/Day Years Used Date Never Assessed Sex Assigned at Date Recorded Not on file documented as of this encounter Last Filed Vital Signs Vital Sign Reading Time Taken Comments Blood Pressure 115/62 08/25/2019 9:12 AM [facility] Pulse 76 08/25/2019 9:12 AM [facility] Temperature - - Respiratory Rate - - Oxygen Saturation 96% 08/25/2019 9:12 AM [facility] Inhaled Oxygen Concentration - - Weight - - Height - - Body Mass Index - - documented in this encounter Plan of Treatment Not on filedocumented as of this encounter Visit Diagnoses Not on filedocumented in this encounter Home Health Visit - Care Plan Visit Details Visit Type - PT HOME VISIT Discipline - Physical Therapy Problems Problem Description Start Date Status Goals Interventions PT Gait Gait evaluation 06/16/2019 Active 1 goal linked to 2 g oal Training and training in scheduled/document interv entions Disciplines: appropriate use ed intervention scheduled /documente Physical of assistive d in this vi sit Therapy devices Goals Goal Associated Problem Outcome Goal Met? Visit Not es PT Gait Training PT Gait Training No Description: Patient will ambulate 400 feet with FWW to enable him to gain independence in and out of home by the end of the episode of care. Interventions Intervention Associated Problem/Goal Status Variance Visi t Notes Instruct on stair Problem: PT Gait Training Completed 1 step step up 2X5. climbing Goal: PT Gait Training 4 step Description: ascend/descend X 2 Instruct patient in Adeline stair climbing. Pt gait training Problem: PT Gait Training Completed Ambula jessee 2X60 feet Description: Goal: PT Gait Training with FWW and Min A. Evaluate and instruct patient/caregiver in gait training using FWW. documented in this encounter Home Health Visit - Actions and Narratives Actions seated LAQ, marching, hip abd/add manual resist. stadg marches documented in this encounter Care Teams Health Care Technician Relationship Specialty Start Date End Date Elizabeth Jerry, PCP - General Family Medicine 06/15/19 [facility] [address] [place] [id number] Romero, Consulting Physician Physical Medicine and 06/15/19 [facility], DO Rehabilitation [address] [facility] [address] [place] [address] Romero Consulting Physician Physical Medicine and 06/15/19 [facility], DO Rehabilitation [address] [facility] [address] [place] [address] documented as of this encounter
--- OUTSIDE RECORDS SUMMARY | 2021-10-04 01:44 | XMS_ITS | Encounter Summary ---
:1940 Author Organization [facility] Address [address] [place] [address] Care Team Providers Name Role Phone Angelika Jasso DO Unavailable Elizabeth Jerry PAFatou Primary Care Provider [phone] Romero, DO Unavailable Reason for Visit Auth/Cert Specialty Diagnoses / Procedures Referred By Contact Refer red To Contact Referral ID Status Reason Start Date Expiration Date Visits Requ ested Visits Authorized [id number] 1 1 Encounter Details Date Type Department Care Team Description 09/06/2019 Home Care Visit [facility] Aman Rachel, PT PT HOME VISIT Health [address] [place] [address] [address] [place] [address] Social History Tobacco Use Types Packs/Day Years Used Date Never Assessed Sex Assigned at Date Recorded Not on file documented as of this encounter Last Filed Vital Signs Vital Sign Reading Time Taken Comments Blood Pressure 128/67 09/06/2019 8:[address] [facility] Pulse 75 09/06/2019 8:[address] [facility] Temperature - - Respiratory Rate - - Oxygen Saturation 97% 09/06/2019 8:[address] [facility] Inhaled Oxygen Concentration - - Weight [...] evaluation 06/16/2019 Active 1 goal linked to 1 g oal intervention Training and training in scheduled/document schedu led/documente Disciplines: appropriate use ed intervention d in this visit Physical of assistive Therapy devices Goals Goal Associated Problem Outcome Goal Met? Visit Not es PT Gait Training PT Gait Training No Description: Patient will ambulate 400 feet with FWW to enable him to gain independence in and out of home by the end of the episode of care. Interventions Intervention Associated Problem/Goal Status Variance Visi t Notes Pt gait training Problem: PT Gait Training Completed ambula tion 2 X 60 Description: Goal: PT Gait Training feet. up/ down stairs Evaluate and instruct (4) X 2 with CGA. 1 patient/caregiver in step st ep ups X 3 gait training using each leg lead. FWW. documented in this encounter Home Health Visit - Actions and Narratives Actions sit to stand transfers, standing hip abd , marches. seated LAQ, hip abd/add. documented in this encounter Care Teams Nuclear Powerplant Mechanic Helper Relationship Specialty Start Date End Date Elizabeth Jerry, PCP - General Family Medicine 06/15/19 [facility] [address] [place] [address] Romero, Consulting Physician Physical Medicine and 06/15/19 [facility], DO Rehabilitation [address] [facility] [address] [place], [place] [id number] Romero, Consulting Physician Physical Medicine and 06/15/19 [facility], DO Rehabilitation [address] [facility] [address] [place] [address] documented as of this encounter
--- OUTSIDE RECORDS SUMMARY | 2021-10-04 01:44 | XMS_ITS | Encounter Summary ---
:1940 Author Organization [facility] Address [address] [place] [address] Care Team Providers Name Role Phone Angelika Jasso DO Unavailable Elizabeth Jerry PAFatou Primary Care Provider [phone] Romero, DO Unavailable Reason for Visit Auth/Cert Specialty Diagnoses / Procedures Referred By Contact Refer red To Contact Referral ID Status Reason Start Date Expiration Date Visits Requ ested Visits Authorized [id number] 1 1 Encounter Details Date Type Department Care Team Description 07/12/2019 Home Care Visit [facility] Aman Rachel, PT PT HOME VISIT Health [address] [place] [address] [address] [place] [address] Social History Tobacco Use Types Packs/Day Years Used Date Never Assessed Sex Assigned at Date Recorded Not on file documented as of this encounter Last Filed Vital Signs Vital Sign Reading Time Taken Comments Blood Pressure 106/63 07/12/2019 12:05 PM [facility] Pulse 100 07/12/2019 12:05 PM [facility] Temperature - - Respiratory Rate - - Oxygen Saturation 97% 07/12/2019 12:05 PM [facility] Inhaled Oxygen Concentration - - Weight - [...] Pt gait training Problem: PT Gait Training ambula jessee 2X 30 feet Description: Goal: PT Gait Training FWW min a Evaluate and instruct patient/caregiver in gait training using FWW. documented in this encounter Home Health Visit - Actions and Narratives Actions seated LAQ, marching, hip abd/add manual resist. Stadg hip abd/extension, marching, squats documented in this encounter Care Teams Manager Part Relationship Specialty Start Date End Date Elizabeth Jerry, PCP - General Family Medicine 06/15/19 [place] [address] Romero, Consulting Physician Physical Medicine and 06/15/19 [facility], DO Rehabilitation [address] [facility] [address] [place] [address] Romero, Consulting Physician Physical Medicine and 06/15/19 [facility], DO Rehabilitation [address] [facility] [address] [place] [address] documented as of this encounter
--- OUTSIDE RECORDS SUMMARY | 2021-10-04 01:44 | XMS_ITS | Encounter Summary ---
:1940 Author Organization [facility] Address [address] [place] [address] Care Team Providers Name Role Phone Angelika Jasso DO Unavailable Elizabeth Jerry PA-C Primary Care Provider [phone] Romero, DO Unavailable Reason for Visit Auth/Cert Specialty Diagnoses / Procedures Referred By Contact Refer red To Contact Referral ID Status Reason Start Date Expiration Date Visits Requ ested Visits Authorized [id number] 1 1 Encounter Details Date Type Department Care Team Description 06/23/2019 Home Care Visit [facility] Home Aman Rachel, PT PT HOME VISIT Health [address] [place] [address] [address] [place] [address] Social History Tobacco Use Types Packs/Day Years Used Date Never Assessed Sex Assigned at Date Recorded Not on file documented as of this encounter Last Filed Vital Signs Vital Sign Reading Time Taken Comments Blood Pressure 108/68 06/23/2019 12:45 PM [facility] Pulse 101 06/23/2019 12:45 PM [facility] Temperature - - Respiratory Rate - - Oxygen Saturation 96% 06/23/2019 12:45 PM [facility] Inhaled Oxygen Concentration - - [...] ed in t his visit Therapy PT Transfer Patient 06/16/2019 Active 1 goal linked to 1 goal Training demonstrates scheduled/documen interventi on Disciplines: impaired ability jessee intervention schedul ed/document Physical to perform ed in this vis it Therapy transfers and/or bed mobility safely Goals Goal Associated Problem Outcome Goal Met? Visit Not es PT Gait Training PT Gait Training No Description: Patient will ambulate 400 feet with FWW to enable him to gain independence in and out of home by the end of the episode of care. PT Transfer Training PT Transfer Training No Description: Patient/caregiver will be independent in all transfers and bed mobility utilizing equipment as needed by the end of the episode of care. Interventions Intervention Associated Problem/Goal Status Variance Visi t Notes Instruct on stair Problem: PT Gait Training Completed stdg at base of climbing Goal: PT Gait Training stairs; s tep up to Description: foot tap. Instruct patient in stair climbing. Pt gait training Problem: PT Gait Training Completed ambula tion 2 x 40 Description: Goal: PT Gait Training feet CGA to min A Evaluate and instruct patient/caregiver in gait training using FWW. PT transfer training Problem: PT Transfer Training Completed si t to stand Description: Goal: PT Transfer Training seque ncing; hand Evaluate and instruct placem ent review. patient/caregiver in sit to stand safe transfers using transfe rs appropriate body mechanics and necessary equipment to perform safe transfers. documented in this encounter Home Health Visit - Actions and Narratives Actions performed seated LAQ, marching, hip abdu ction/adduction, stdg heel raises, hip abduction/extension, marching at counter top. documented in this encounter Care Teams Accounting Machine Operator Relationship Specialty Start Date End Date Elizabeth Jerry, PCP - General Family Medicine 06/15/19 [facility] [address] [place] [phone] Romero, Consulting Physician Physical Medicine and 06/15/19 Angelika, DO Rehabilitation [address] [facility] [address] [place], [place] [address] Romero, Consulting Physician Physical Medicine and 06/15/19 Angelika, DO Rehabilitation [address] [facility] [address] [place] [address] documented as of this encounter
--- OUTSIDE RECORDS SUMMARY | 2021-10-04 01:44 | XMS_ITS | Encounter Summary ---
:[address] [facility] Address [address] [place] [address] Care Team Providers Name Role Phone Angelika Jasso DO Unavailable Elizabeth Jerry PA-C Primary Care Provider [phone] Romero, DO Unavailable Reason for Visit Auth/Cert Specialty Diagnoses / Procedures Referred By Contact Refer red To Contact Referral ID Status Reason Start Date Expiration Date Visits Requ ested Visits Authorized [id number] 1 1 Encounter Details Date Type Department Care Team Description 07/07/2019 Home Care Visit [facility] Home Aman Rachel, PT PT HOME VISIT Health [address] [place] [address] [address] [place] [address] Social History Tobacco Use Types Packs/Day Years Used Date Never Assessed Sex Assigned at Date Recorded Not on file documented as of this encounter Last Filed Vital Signs Vital Sign Reading Time Taken Comments Blood Pressure 115/86 07/07/2019 9:15 AM [facility] Pulse 94 07/07/2019 9:15 AM [facility] Temperature - - Respiratory Rate - - Oxygen Saturation 96% 07/07/2019 9:15 AM [facility] Inhaled Oxygen Concentration - - Weight [...] 1 goal linked to 1 g oal Training and training in scheduled/documen interve ntion Disciplines: appropriate use of jessee intervention sched [...] Problem: PT Gait Training Completed ambula tion X 35 feet Description: Goal: PT Gait Training FWW and M in A Evaluate and instruct patient/caregiver in gait training using FWW. PT transfer training Problem: PT Transfer Training Completed si t to stand Description: Goal: PT Transfer Training trans jon training to Evaluate and instruct FWW, s hower transfer patient/caregiver in in/out with safety safe transfers using bar use . appropriate body mechanics and necessary equipment to perform safe transfers. documented in this encounter Home Health Visit - Actions and Narratives Actions performed seated LAQ, marching, hip abdu ction/adduction, stdg marches and weight shifting. documented in this encounter Care Teams Geophysical Laboratory Supervisor Relationship Specialty Start Date End Date Elizabeth Jerry, PCP - General Family Medicine 06/15/19 [facility] [address] [place] [phone] Romero, Consulting Physician Physical Medicine and 06/15/19 [facility], DO Rehabilitation [address] [facility] [address] [place], [place] [address] Romero, Consulting Physician Physical Medicine and 06/15/19 [facility], DO Rehabilitation [address] [facility] [address] [place] [address] documented as of this encounter
--- OUTSIDE RECORDS SUMMARY | 2021-10-04 01:44 | XMS_ITS | Encounter Summary ---
:1940 Author Organization [facility] [address] [place] [address] Care Team Providers Name Role Phone Angelika Jasso DO Unavailable Elizabeth Jerry PA-C Primary Care Provider [phone] Romero, DO Unavailable Reason for Visit Auth/Cert Specialty Diagnoses / Procedures Referred By Contact Refer red To Contact Referral ID Status Reason Start Date Expiration Date Visits Requ ested Visits Authorized [id number] 1 1 Encounter Details Date Type Department Care Team Description 06/20/2019 Home Care Visit [facility] Aman Rachel, PT PT HOME VISIT Health [address] [place] [address] [address] [place] [address] Social History Tobacco Use Types Packs/Day Years Used Date Never Assessed Sex Assigned at Date Recorded Not on file documented as of this encounter Last Filed Vital Signs Vital Sign Reading Time Taken Comments Blood Pressure 108/68 06/20/2019 1:08 PM [facility] Pulse 78 06/20/2019 1:08 PM [facility] Temperature - - Respiratory Rate - - Oxygen Saturation 97% 06/20/2019 1:08 PM [facility] Inhaled Oxygen Concentration - - Weight [...] demonstrates scheduled/documen interventi on Disciplines: impaired ability jsesee intervention schedul ed/document Physical to perform ed [...] the episode of care. Interventions Intervention Associated Status Variance Visit Notes Problem/Goal Instruct on stair Problem: PT Gait Training Completed stdg withhand hold on climbing Goal: PT Gait Training wall and walker: Description: alternating step up Instruct patient in to tap o n 8 step. stair climbing. step up to b ottom step X 2. Pt gait training Problem: PT Gait Training Completed ambula tion 2X 40 feet Description: Goal: PT Gait Training Evaluate and instruct patient/caregiver in gait training using FWW. PT transfer training Problem: PT Transfer Training Completed si t to stand Description: Goal: PT Transfer Training instr uction from Evaluate and instruct chair: hand patient/caregiver in placeme nt, nose over safe transfers using toes cu eing, stand appropriate body tall cueing . mechanics and necessary equipment to perform safe transfers. documented in this encounter Home Health Visit - Actions and Narratives Actions seated marching, LAQ, hip abduction/addu ction with manual resistance. documented in this encounter Care Teams Spare Hand Relationship Specialty Start Date End Date Elizabeth Jerry, PCP - General Family Medicine 06/15/19 [facility] [address] [place] [phone] Romero, Consulting Physician Physical Medicine and 06/15/19 Angelika, DO Rehabilitation [address] [facility] [address] [place], [place] [address] Romero, Consulting Physician Physical Medicine and 06/15/19 Angelika, DO Rehabilitation [address] [facility] [address] [place] [address] documented as of this encounter
--- OUTSIDE RECORDS SUMMARY | 2021-10-04 01:44 | XMS_ITS | Encounter Summary ---
:1940 Author Organization [facility] Address [address] [place] [address] Care Team Providers Name Role Phone Angelika Jasso DO Unavailable Elizabeth Jerry PA-C Primary Care Provider [phone] Romero, DO Unavailable Reason for Visit Auth/Cert Specialty Diagnoses / Procedures Referred By Contact Refer red To Contact Referral ID Status Reason Start Date Expiration Date Visits Requ ested Visits Authorized [id number] 1 1 Encounter Details Date Type Department Care Team Description 08/08/2019 Home Care Visit [facility] Aman Rachel, PT PT HOME VISIT Health [address] [place] [address] [address] [place] [address] Social History Tobacco Use Types Packs/Day Years Used Date Never Assessed Sex Assigned at Date Recorded Not on file documented as of this encounter Plan of Treatment Not on [...] gait training Problem: PT Gait Training Completed 2X 60 feet with Description: Goal: PT Gait Training FWW and C GA Evaluate and instruct patient/caregiver in gait training using FWW. PT transfer training Problem: PT Transfer Training Completed si t to stand from Description: Goal: PT Transfer Training chair traiing Evaluate and instruct patient/caregiver in safe transfers using appropriate body mechanics and necessary equipment to perform safe transfers. documented in this encounter Home Health Visit - Actions and Narratives Actions seated LAQ, marching, hip abd/add manual resist. Stadg hip abd. marching. documented in this encounter Care Teams Store Loss Prevention Manager Relationship Specialty Start Date End Date Elizabeth Jerry, PCP - General Family Medicine 06/15/19 PA[facility]Matty [address] [phone] Romero, Consulting Physician Physical Medicine and 06/15/19 [facility], DO Rehabilitation [address] [facility] [address] [place] [address] Romero, Consulting Physician Physical Medicine and 06/15/19 [facility], DO Rehabilitation [address] [facility] [address] [place] [address] documented as of this encounter
--- OUTSIDE RECORDS SUMMARY | 2021-10-04 01:44 | XMS_ITS | Encounter Summary ---
:1940 Author Organization [facility] Address [address] [place] [address] Care Team Providers Name Role Phone Angelika Jasso DO Unavailable Elizabeth Jerry PA-C Primary Care Provider [phone] Romero, DO Unavailable Reason for Visit Reason Comments Weakness Auth/Cert Specialty Diagnoses / Procedures Referred By Contact Refer red To Contact Referral ID Status Reason Start Date Expiration Date Visits Requ ested Visits Authorized [id number] 1 1 Encounter Details Date Type Department Care Team Description 08/10/2019 Home Care Visit [facility] Aman Rachel, PT [facility] PT [address] [facility] [facility] [address] [phone] [address] (Work) [place] [address] Social History Tobacco Use Types Packs/Day Years Used Date Never Assessed Sex Assigned at Date Recorded Not on file documented as of this encounter Last Filed Vital Signs Vital Sign Reading Time Taken Comments Blood Pressure 123/53 08/10/2019 8:04 AM [facility] Pulse 78 08/10/2019 8:04 AM [facility] Temperature - - Respiratory Rate - - Oxygen Saturation 96% 08/10/2019 8:04 AM [facility] Inhaled Oxygen Concentration - - Weight - - Height - - Body Mass Index - - documented in this encounter Plan of Treatment Not on filedocumented as of this encounter Visit Diagnoses Not on filedocumented in this encounter Home Health Visit - Care Plan Visit Details Visit Type - PT OASIS RECERTIFICATION Discipline - Physical Therapy Problems Problem Description [...] Problem: PT Gait Training Completed 1 step up X 5 each climbing Goal: PT Gait Training leg. 1 st ep up to Description: toe tap X 8 each leg Instruct patient in stair climbing. Pt gait training Problem: PT Gait Training Completed ambula digna 2X 60 feet Description: Goal: PT Gait Training with FWW and Min to Evaluate and instruct CGA patient/caregiver in gait training using FWW. PT transfer training Problem: PT Transfer Training Completed si t to stand, chair Description: Goal: PT Transfer Training to be d to chair Evaluate and instruct transf ers patient/caregiver in safe transfers using appropriate body mechanics and necessary equipment to perform safe transfers. documented in this encounter Care Teams Coremaker Apprentice Relationship Specialty Start Date End Date Elizabeth Jerry, PCP - General Family Medicine 06/15/19 [facility] [address] [place] [phone] Romero Consulting Physician Physical Medicine and 06/15/19 [facility] [address] [facility] [address] [place] [address] Romero Consulting Physician Physical Medicine and 06/15[facility]19 [facility] [address] [facility] [address] [place] [address] documented as of this encounter
--- OUTSIDE RECORDS SUMMARY | 2021-10-04 01:44 | XMS_ITS | Encounter Summary ---
:1940 Author Organization [facility] Address [address] [place] [address] Care Team Providers Name Role Phone Angelika Jasso DO Unavailable Elizabeth Jerry PA-C Primary Care Provider [phone] Romero, DO Unavailable Reason for Visit Auth/Cert Specialty Diagnoses / Procedures Referred By Contact Refer red To Contact Referral ID Status Reason Start Date Expiration Date Visits Requ ested Visits Authorized [id number] 1 1 Encounter Details Date Type Department Care Team Description 08/30/2019 Home Care Visit [facility] Aman Rachel, PT PT HOME VISIT Health [address] [place] [address] [address] [place] [address] Social History Tobacco Use Types Packs/Day Years Used Date Never Assessed Sex Assigned at Date Recorded Not on file documented as of this encounter Last Filed Vital Signs Vital Sign Reading Time Taken Comments Blood Pressure 125/57 08/30/2019 9:05 AM [facility] Pulse 76 08/30/2019 9:05 AM [facility] Temperature - - Respiratory Rate - - Oxygen Saturation 98% 08/30/2019 9:05 AM [facility] Inhaled Oxygen Concentration - - Weight - [...] on stair Problem: PT Gait Training Completed ascend/descend 4 climbing Goal: PT Gait Training steps wit h UE Description: assistance and C GA Instruct patient in from PT. 1 step step stair climbing. up X 4. Pt gait training Problem: PT Gait Training Completed ambula jessee 2X 50 feet Description: Goal: PT Gait Training with FWW and CGA. Evaluate and instruct tolera digna 3 steps patient/caregiver in with PT assist and gait training using no AD. FWW. PT transfer training Problem: PT Transfer Training Completed si t to stand from Description: Goal: PT Transfer Training chair X 4 Evaluate and instruct patient/caregiver in safe transfers using appropriate body mechanics and necessary equipment to perform safe transfers. documented in this encounter Home Health Visit - Actions and Narratives Actions seated LAQ, marching. Stadg hip abd/exte nsion, marching. documented in this encounter Care Teams Finance Business Manager Relationship Specialty Start Date End Date Elizabeth Jerry, PCP - General Family Medicine 06/15/19 [facility] [address] [place] [phone] Romero, Consulting Physician Physical Medicine and 06/15/19 Angelika, DO Rehabilitation [address] [facility] [address] [place], [place] [phone] Romero, Consulting Physician Physical Medicine and 06/15/19 [facility], DO Rehabilitation [address] [facility] [address] [place], [place] [phone] documented as of this encounter
--- OUTSIDE RECORDS SUMMARY | 2021-10-04 01:44 | XMS_ITS | Encounter Summary ---
:1940 Author Organization [facility] Address [address] [place] [address] Care Team Providers Name Role Phone Angelika Jasso DO Unavailable Elizabeth Jerry PA-C Primary Care Provider [phone] Romero, DO Unavailable Reason for Visit Auth/Cert Specialty Diagnoses / Procedures Referred By Contact Refer red To Contact Referral ID Status Reason Start Date Expiration Date Visits Requ ested Visits Authorized [id number] 1 1 Encounter Details Date Type Department Care Team Description 09/01/2019 Home Care Visit [facility] Aman Rachel, PT PT HOME VISIT Health [address] [place] [address] [address] [place] [address] Social History Tobacco Use [...] on stair Problem: PT Gait Training Completed ascended/descended 4 climbing Goal: PT Gait Training steps X2. 1 step Description: step up X 5 each leg Instruct patient in lead stair climbing. Pt gait training Problem: PT Gait Training Completed ambula jessee 2X60 feet Description: Goal: PT Gait Training with FWW and CGA Evaluate and instruct patient/caregiver in gait training using FWW. documented in this encounter Home Health Visit - Actions and Narratives Actions standing marches, hip abd, mini squats. documented in this encounter Care Teams R D Internship Relationship Specialty Start Date End Date Elizabeth Jerry, PCP - General Family Medicine 06/15/19 [facility] [address] [place] [address] Romero, Consulting Physician Physical Medicine and 06/15/19 [facility] [address] [facility] [address] [place] [address] Romero, Consulting Physician Physical Medicine and 06/15/19 [facility] [address] [facility] [address] [place] [address] documented as of this encounter
--- OUTSIDE RECORDS SUMMARY | 2021-10-04 01:44 | XMS_ITS | Encounter Summary ---
:1940 Author Organization [facility] Address [address] [place] [address] Care Team Providers Name Role Phone Angelika Jasso DO Unavailable Elizabeth Jerry PA-C Primary Care Provider [phone] Romero, DO Unavailable Reason for Visit Auth/Cert Specialty Diagnoses / Procedures Referred By Contact Refer red To Contact Referral ID Status Reason Start Date Expiration Date Visits Requ ested Visits Authorized [id number] 1 1 Encounter Details Date Type Department Care Team Description 06/29/2019 Home Care Visit [facility] Aman Rachel, PT PT HOME VISIT Health [address] [place] [address] [address] [place] [address] Social History Tobacco Use Types Packs/Day Years Used Date Never Assessed Sex Assigned at Date Recorded Not on file documented as of this encounter Last Filed Vital Signs Vital Sign Reading Time Taken Comments Blood Pressure 115/65 06/29/2019 1:10 PM [facility] Pulse 90 06/29/2019 1:10 PM [facility] Temperature - - Respiratory Rate - - Oxygen Saturation 96% 06/29/2019 1:10 PM [facility] Inhaled Oxygen Concentration - - [...] Problem: PT Gait Training Completed ambula jessee 4X15 feet Description: Goal: PT Gait Training Evaluate and instruct patient/caregiver in gait training using FWW. PT transfer training Problem: PT Transfer Training Completed si t to stand to sit Description: Goal: PT Transfer Training min a to CGA. stand Evaluate and instruct 4X 2 m in with weight patient/caregiver in shiftin g safe transfers using appropriate body mechanics and necessary equipment to perform safe transfers. documented in this encounter Home Health Visit - Actions and Narratives Actions performed seated LAQ, marching, hip abdu ction/adduction, stdg hip abduction, marching. documented in this encounter Care Teams Automotive Hardware Engineer Relationship Specialty Start Date End Date Elizabeth Jerry, PCP - General Family Medicine 06/15/19 PA[facility]aoC [address] [place] [phone] Romero Consulting Physician Physical Medicine and 06/15/19 Angelika, DO Rehabilitation [address] [facility] [address] [place] [address] Romero, Consulting Physician Physical Medicine and 06/15/19 [facility], DO Rehabilitation [address] [facility] [address] [place] [address] documented as of this encounter
--- OUTSIDE RECORDS SUMMARY | 2021-10-04 01:44 | XMS_ITS | Encounter Summary ---
:1940 Author Organization [facility] Address [address] [place] [address] Care Team Providers Name Role Phone Angelika Jasso DO Unavailable Elizabeth Jerry PA-C Primary Care Provider [phone] Romero, DO Unavailable Reason for Visit Auth/Cert Specialty Diagnoses / Procedures Referred By Contact Refer red To Contact Referral ID Status Reason Start Date Expiration Date Visits Requ ested Visits Authorized [id number] 1 1 Encounter Details Date Type Department Care Team Description 06/27/2019 Home Care Visit [facility] Aman Rachel, PT PT HOME VISIT Health [address] [place] [address] [address] [place] [address] Social History Tobacco Use Types Packs/Day Years Used Date Never Assessed Sex Assigned at Date Recorded Not on file documented as of this encounter Last Filed Vital Signs Vital Sign Reading Time Taken Comments Blood Pressure 101/56 06/27/2019 1:00 PM [facility] Pulse 78 06/27/2019 1:00 PM [facility] Temperature - - Respiratory Rate - - Oxygen Saturation 96% 06/27/2019 1:00 PM [facility] Inhaled Oxygen Concentration - - Weight - [...] Pt gait training Problem: PT Gait Training 2X 30 feet Min A Description: Goal: PT Gait Training with FWW Evaluate and instruct patient/caregiver in gait training using FWW. PT transfer training Problem: PT Transfer Training s Description: Goal: PT Transfer Training Evaluate and instruct patient/caregiver in safe transfers using appropriate body mechanics and necessary equipment to perform safe transfers. documented in this encounter Home Health Visit - Actions and Narratives Actions seated LAQ, marching, hip abd/add manual resist. Stadg hip abd, marching, foot up to step tap alternating. documented in this encounter Care Teams Director Law Enforcement Relationship Specialty Start Date End Date Elizabeth Jerry, PCP - General Family Medicine 06/15/19 PA-C [address] [place] [address] Romero Consulting Physician Physical Medicine and 06/15/19 Angelika, DO Rehabilitation [address] [facility] [address] [place] [address] Romero, Consulting Physician Physical Medicine and 06/15/19 [facility], DO Rehabilitation [address] [facility] [address] [place] [address] documented as of this encounter
--- OUTSIDE RECORDS SUMMARY | 2021-10-04 01:44 | XMS_ITS | Encounter Summary ---
:1940 Author Organization [facility] Address [address] [place] [address] Care Team Providers Name Role Phone Angelika Jasso DO Unavailable Elizabeth Jerry PA-C Primary Care Provider Romero, DO Unavailable Reason for Visit Auth/Cert Specialty Diagnoses / Procedures Referred By Contact Refer red To Contact Referral ID Status Reason Start Date Expiration Date Visits Requ ested Visits Authorized [id number] 1 1 Encounter Details Date Type Department Care Team Description 08/02/2019 Home Care Visit [facility] Aman Rachel, PT PT HOME VISIT Health [address] [place] [address] [address] [place] [address] Social History Tobacco Use Types Packs/Day Years Used Date Never Assessed Sex Assigned at Date Recorded Not on file documented as of this encounter Last Filed Vital Signs Vital Sign Reading Time Taken Comments Blood Pressure 113/44 08/02/2019 9:03 AM [facility] Pulse 79 08/02/2019 9:03 AM [facility] Temperature - - Respiratory Rate - - Oxygen Saturation 96% 08/02/2019 9:03 AM [facility] Inhaled Oxygen Concentration - - [...] PT Gait Training Completed ambula tion 2X 50 Description: Goal: PT Gait Training feet with FWW and Evaluate and instruct CGA. 4 X 5 steps patient/caregiver in forward /backward gait training using with FWW and CGA. FWW. PT transfer training Problem: PT Transfer Training Completed si t to stand to sit Description: Goal: PT Transfer Training CGA Evaluate and instruct patient/caregiver in safe transfers using appropriate body mechanics and necessary equipment to perform safe transfers. documented in this encounter Home Health Visit - Actions and Narratives Actions seated LAQ, marching, hip abd/add manual resist. Stadg hip abd, marching, squats documented in this encounter Care Teams School Bus Monitor Relationship Specialty Start Date End Date Elizabeth Jerry, PCP - General Family Medicine 06/15/19 PA-C [address] [place] [phone] Romero Consulting Physician Physical Medicine and 06/15/19 Angelika, DO Rehabilitation [address] [facility] [address] [place] [address] Romero Consulting Physician Physical Medicine and 06/15/19 [facility] [address] [facility] [address] [place] [address] documented as of this encounter
--- OUTSIDE RECORDS SUMMARY | 2021-10-04 01:44 | XMS_ITS | Encounter Summary ---
:1940 Author Organization [facility] Address [address] [place] [address] Care Team Providers Name Role Phone Angelika Jasso DO Unavailable Elizabeth Jerry PA-C Primary Care Provider Romero, DO Unavailable Reason for Visit Auth/Cert Specialty Diagnoses / Procedures Referred By Contact Refer red To Contact Referral ID Status Reason Start Date Expiration Date Visits Requ ested Visits Authorized [id number] 1 1 Encounter Details Date Type Department Care Team Description 08/04/2019 Home Care Visit [facility] Home Aman Rachel, PT PT HOME VISIT Health [address] [place] [address] [address] [place] [address] Social History Tobacco Use Types Packs/Day Years Used Date Never Assessed Sex Assigned at Date Recorded Not on file documented as of this encounter Last Filed Vital Signs Vital Sign Reading Time Taken Comments Blood Pressure 107/39 08/04/2019 9:02 AM [facility] Pulse 79 08/04/2019 9:02 AM [facility] Temperature - - Respiratory Rate - - Oxygen Saturation 96% 08/04/2019 9:02 AM [facility] Inhaled Oxygen [...] on stair Problem: PT Gait Training Completed step up to toe climbing Goal: PT Gait Training tapping, step up 1 Description: step with Min A and Instruct patient in hand hol d assist on stair climbing. half wall. Pt gait training Problem: PT Gait Training Completed ambula tion 2X60 feet Description: Goal: PT Gait Training with FWW and CGA Evaluate and instruct patient/caregiver in gait training using FWW. PT transfer training Problem: PT Transfer Training Completed si t to stand from Description: Goal: PT Transfer Training chair Evaluate and instruct patient/caregiver in safe transfers using appropriate body mechanics and necessary equipment to perform safe transfers. documented in this encounter Home Health Visit - Actions and Narratives Actions seated LAQ, marching, hip abd/add manual resist. Stadg hip abd, marching documented in this encounter Care Teams Manager Of Financial Relationship Specialty Start Date End Date Elizabeth Jerry, PCP - General Family Medicine 06/15/19 [facility] [address] [place] [address] Romero, Consulting Physician Physical Medicine and 06/15/19 [facility], DO Rehabilitation [address] [facility] [address] [place], [place] [address] Romero, Consulting Physician Physical Medicine and 06/15/19 [facility], DO Rehabilitation [address] [facility] [address] [place], [place] [address] documented as of this encounter
--- OUTSIDE RECORDS SUMMARY | 2021-10-04 01:44 | XMS_ITS | Encounter Summary ---
:1940 Author Organization [facility] Address [address] [place] [address] Care Team Providers Name Role Phone System, Provider Not In Primary Care Provider Unavailable Mosacierraaie, DO Unavailable Eric Jerry PA-C Primary Care Provider Mosallaie, DO Unavailable Reason for Visit Auth/Cert Specialty Diagnoses / Procedures Referred By Contact Refer red To Contact Referral ID Status Reason Start Date Expiration Date Visits Requ ested Visits Authorized [id number] 1 1 Encounter Details Date Type Department Care Team Description 06/10/2019 Home Health Admission [facility] Escobar Terry [facility] [address] [place] [address] Social History Tobacco Use Types Packs/Day Years Used Date Never Assessed Sex Assigned at Date Recorded Not on file documented as of this encounter Plan of Treatment Not on filedocumented as of this encounter Visit Diagnoses Not on filedocumented in this encounter Care Teams Yoga Teacher Relationship Specialty Start Date End Date System, Provider PCP - General 09/22/12 06/14/19 Not In [address] [place] [address] Elizabeth Jerry, PCP - General Family Medicine 06/15/19 [address] [place] [address] Romero, Consulting Physician Physical Medicine and 06/15/19 DO Angelika Rehabilitation [address] [facility] [address] [place], [place] [address] Romero, Consulting Physician Physical Medicine and 06/15/19 Angelika DO Rehabilitation [address] [facility] [address] [place] [address] documented as of this encounter
--- OUTSIDE RECORDS SUMMARY | 2021-10-04 01:44 | XMS_ITS | Encounter Summary ---
:[address] [facility] [address] [place] [address] Care Team Providers Name Role Phone Angelika Jasso DO Unavailable Elizabeth Jerry PA-C Primary Care Provider [phone] Romero, DO Unavailable Reason for Visit Auth/Cert Specialty Diagnoses / Procedures Referred By Contact Refer red To Contact Referral ID Status Reason Start Date Expiration Date Visits Requ ested Visits Authorized [id number] 1 1 Encounter Details Date Type Department Care Team Description 07/25/2019 Home Care Visit [facility] Home Aman Rachel, PT PT HOME VISIT Health [address] [place] [address] [address] [place] [address] Social History Tobacco Use Types Packs/Day Years Used Date Never Assessed Sex Assigned at Date Recorded Not on file documented as of this encounter Last Filed Vital Signs Vital Sign Reading Time Taken Comments Blood Pressure 123/63 07/25/2019 9:03 AM [facility] Pulse 79 07/25/2019 9:03 AM [facility] Temperature - - Respiratory Rate - - Oxygen Saturation 97% 07/25/2019 9:03 AM [facility] Inhaled Oxygen Concentration - - Weight [...] Problem: PT Gait Training Completed ambula jessee 4X 10 feet Description: Goal: PT Gait Training forward a nd backward Evaluate and instruct with F WW and CGA to patient/caregiver in Min A. gait training using FWW. PT transfer training Problem: PT Transfer Training Completed si t to stand, stand Description: Goal: PT Transfer Training -pivo t, pushing up Evaluate and instruct on deon ir. patient/caregiver in safe transfers using appropriate body mechanics and necessary equipment to perform safe transfers. documented in this encounter Home Health Visit - Actions and Narratives Actions CONTINUE SKILLED INTERVENTION FOR INSTRU CTION IN HOME EXERCISE PROGRAM MOBILITY GAIT AND TRANSFER TRAINING TO RETURN PATIENT TO PRIOR LEVEL OF FUNCTION CONTINUE PT FOR GAIT AND MOBILITY FALL A ND RE HOSPITALIZATION PREVENTION documented in this encounter Care Teams Flash Oven Operator Relationship Specialty Start Date End Date Elizabeth Jerry, PCP - General Family Medicine 06/15/19 PA-C [address] [place] [phone] Romero Consulting Physician Physical Medicine and 06/15/19 [place], DO Rehabilitation [address] [place] [address] Romero, Consulting Physician Physical Medicine and 06/15/19 Keikhosrow, DO Rehabilitation [address] [facility] [address] [place] [address] documented as of this encounter
--- OUTSIDE RECORDS SUMMARY | 2021-10-04 01:44 | XMS_ITS | Encounter Summary ---
:1940 Author Organization [facility] Address [address] [place] [address] Care Team Providers Name Role Phone Angelika Jasso DO Unavailable Elizabeth Jerry PA-C Primary Care Provider [phone] Romero, DO Unavailable Reason for Visit Auth/Cert Specialty Diagnoses / Procedures Referred By Contact Refer red To Contact Referral ID Status Reason Start Date Expiration Date Visits Requ ested Visits Authorized [id number] 1 1 Encounter Details Date Type Department Care Team Description 08/18/2019 Home Care Visit [facility] Home Aman Rachel, PT PT HOME VISIT Health [address] [place] [address] [address] [place] [address] Social History Tobacco Use Types Packs/Day Years Used Date Never Assessed Sex Assigned at Date Recorded Not on file documented as of this encounter Last Filed Vital Signs Vital Sign Reading Time Taken Comments Blood Pressure 120/72 08/18/2019 9:05 AM [facility] Pulse 76 08/18/2019 9:05 AM [facility] Temperature - - Respiratory Rate - - Oxygen Saturation 95% 08/18/2019 9:05 AM [facility] Inhaled Oxygen Concentration - - Weight - [...] PT Gait Training Completed 1 step step ups 3X5 climbing Goal: PT Gait Training alternati anthony lead ELIEZER Description: with min A. Instruct patient in stair climbing. Pt gait training Problem: PT Gait Training Completed ambula jessee 2X 60 feet, Description: Goal: PT Gait Training 4X 10 fee t forward Evaluate and instruct and re verse. patient/caregiver in gait training using FWW. documented in this encounter Home Health Visit - Actions and Narratives Actions seated LAQ, marching, hip abd/add manual resist. Stadg hip abduction, marching. documented in this encounter Care Teams Car Hop Relationship Specialty Start Date End Date Elizabeth Jerry, PCP - General Family Medicine 06/15/19 PA-Matty [address] [place] [address] Romero, Consulting Physician Physical Medicine and 06/15/19 [facility], DO Rehabilitation [address] [facility] [address] [place] [address] Romero, Consulting Physician Physical Medicine and 06/15/19 [facility], DO Rehabilitation [address] [facility] [address] [place] [address] documented as of this encounter
--- OUTSIDE RECORDS SUMMARY | 2021-10-04 01:44 | XMS_ITS | Encounter Summary ---
:1940 Author Organization [facility] Address [address] [place] [address] Care Team Providers Name Role Phone ShantaAngelika wise DO Unavailable Elizabeth Jerry PA-C Primary Care Provider [phone] ShantaDO frandy Unavailable Reason for Visit Auth/Cert Specialty Diagnoses / Procedures Referred By Contact Refer red To Contact Referral ID Status Reason Start Date Expiration Date Visits Requ ested Visits Authorized [id number] 1 1 Encounter Details Date Type Department Care Team Description 08/01/2019 Home Care Visit [facility] Aman Rachel, PT [facility] [phone] (Work) [address] [place] [address] Social History Tobacco Use Types Packs/Day Years Used Date Never Assessed Sex Assigned at Date Recorded Not on file documented as of this encounter Plan of Treatment Not on filedocumented as of this encounter Visit Diagnoses Not on filedocumented in this encounter Care Teams Piping Blocker Relationship Specialty Start Date End Date Elizabeth Jerry, PCP - General Family Medicine 06/15/[place] [address] Romero, Consulting Physician Physical Medicine and 06/15/19 [place], DO Rehabilitation [address] [facility] [address] [place] [address] Romero, Consulting Physician Physical Medicine and 06/15/19 [place]row, DO Rehabilitation [address] [facility] [address] [place] [address] documented as of this encounter
--- OUTSIDE RECORDS SUMMARY | 2021-10-04 01:44 | XMS_ITS | Encounter Summary ---
:1940 Author Organization [facility] [address] [place] [address] Care Team Providers Name Role Phone Angelika Jasso DO Unavailable Elizabeth Jerry PAFatou Primary Care Provider [phone] Romero, DO Unavailable Reason for Visit Auth/Cert Specialty Diagnoses / Procedures Referred By Contact Refer red To Contact Referral ID Status Reason Start Date Expiration Date Visits Requ ested Visits Authorized [id number] 1 1 Encounter Details Date Type Department Care Team Description 07/14/2019 Home Care Visit [facility] Aman Rachel, PT PT HOME VISIT Health [address] [place] [address] [address] [place] [address] Social History Tobacco Use Types Packs/Day Years Used Date Never Assessed Sex Assigned at Date Recorded Not on file documented as of this encounter Last Filed Vital Signs Vital Sign Reading Time Taken Comments Blood Pressure 130/84 07/14/2019 9:05 AM [facility] Pulse 87 07/14/2019 9:05 AM [facility] Temperature - - Respiratory Rate - - Oxygen Saturation 96% 07/14/2019 9:05 AM [facility] Inhaled Oxygen Concentration - - Weight [...] Problem: PT Gait Training Completed ambula jessee 2x30 feet Description: Goal: PT Gait Training FWW David Evaluate and instruct patient/caregiver in gait training using FWW. documented in this encounter Home Health Visit - Actions and Narratives Actions performed seated LAQ, marching, hip abdu ction/adduction, hip abduction/extension, marching. documented in this encounter Care Teams Progress Worker Relationship Specialty Start Date End Date Elizabeth Jerry, PCP - General Family Medicine 06/15/[place] [address] Romero, Consulting Physician Physical Medicine and 06/15/19 Angelika, DO Rehabilitation [address] [facility] [address] [place] [address] Romero, Consulting Physician Physical Medicine and 06/15/19 [place], DO Rehabilitation [address] [facility] [address] [place] [address] documented as of this encounter
--- OUTSIDE RECORDS SUMMARY | 2021-10-04 01:44 | XMS_ITS | Encounter Summary ---
:1940 Author Organization [facility] Address [address] [place] [address] Care Team Providers Name Role Phone Angelika Jasso DO Unavailable Elizabeth Jerry PA-C Primary Care Provider [phone] Romero, DO Unavailable Reason for Visit Reason Comments Weakness Auth/Cert Specialty Diagnoses / Procedures Referred By Contact Refer red To Contact Referral ID Status Reason Start Date Expiration Date Visits Requ ested Visits Authorized [id number] 1 1 Encounter Details Date Type Department Care Team Description 06/16/2019 Home Care Visit [facility] Aman Rachel, PT [facility] PT CARE [address] [place] [address] [address] ([place]) [place] [address] Social History Tobacco Use Types Packs/Day Years Used Date Never Assessed Sex Assigned at Date Recorded Not on file documented as of this encounter Last Filed Vital Signs Vital Sign Reading Time Taken Comments Blood Pressure 117/82 06/16/2019 12:20 PM [facility] Pulse 96 06/16/2019 12:20 PM [facility] Temperature - - Respiratory Rate - - Oxygen Saturation 95% 06/16/2019 12:20 PM [facility] Inhaled Oxygen Concentration - - Weight - - Height - - Body Mass Index - - documented in this encounter Plan of Treatment Not on filedocumented as of this encounter Visit Diagnoses Not on filedocumented in this encounter Home Health Visit - Care Plan Visit Details Visit Type - PT OASIS START OF CARE Discipline - Physical Therapy Problems Problem Description Start Date Status Goals Interventions PT Gait Gait evaluation 06/16/2019 Active 1 goal linked to 2 g oal Training and training in scheduled/documen interve ntions Disciplines: appropriate use jessee intervention schedule d/document Physical of assistive ed in this v isit Therapy devices PT Establish or Develop or modify 06/16/2019 Active 1 goal linked to 1 goal Upgrade Home home exercise scheduled/documen in tervention Program program jessee intervention scheduled/d ocument Disciplines: ed in this visi t Physical Therapy Goals Goal Associated Problem Outcome Goal Met? Visit Not es PT Gait Training PT Gait Training No Description: Patient will ambulate 400 feet with FWW to enable him to gain independence in and out of home by the end of the episode of care. PT Establish Or Upgrade Home PT Establish or Upgrade N o Program Home Program Description: Patient/caregiver will verbalize understanding of home exercise program and progression throughout the episode of care. Interventions Intervention Associated Problem/Goal Status Variance Visi t Notes Instruct on stair Problem: PT Gait Training Completed Min A to Mod A for 4 climbing Goal: PT Gait Training step up a nd down X 1 Description: Instruct patient in stair climbing. Pt gait training Problem: PT Gait Training Completed ambula jessee with FWW Description: Goal: PT Gait Training and Min A 2X50 feet Evaluate and instruct patient/caregiver in gait training using FWW. PT establish or upgrade Problem: PT Establish or Upgrade Home Pr ogram Completed performed seated home program Goal: PT Establish Or Upgrade Home Program MARTHA, sebastián, Description: heel/toe raises. Home exercise program for strengthening, gait/transfer training, stair training (up to 4 steps), home safety. documented in this encounter Care Teams Spray Gunner Relationship Specialty Start Date End Date Elizabeth Jerry, PCP - General Family Medicine 06/15/19 PAFatou [address] [place] [phone] Romero, Consulting Physician Physical Medicine and 06/15/19 [place], DO Rehabilitation [address] [facility] [address] [place] [address] Romero, Consulting Physician Physical Medicine and 06/15/19 Ke[place], DO Rehabilitation [address] [facility] [address] [place] [address] documented as of this encounter
--- OUTSIDE RECORDS SUMMARY | 2021-10-04 01:44 | XMS_ITS | Encounter Summary ---
:1940 Author Organization [facility] Address [address] [place] [address] Care Team Providers Name Role Phone Angelika Jasso DO Unavailable Elizabeth Jerry PA-C Primary Care Provider [phone] Romero, DO Unavailable Reason for Visit Auth/Cert Specialty Diagnoses / Procedures Referred By Contact Refer red To Contact Referral ID Status Reason Start Date Expiration Date Visits Requ ested Visits Authorized [id number] 1 1 Encounter Details Date Type Department Care Team Description 07/18/2019 Home Care Visit [facility] Aman Rachel, PT [facility] PT ASSESSMENT [address] [place] [address] [address] (Work) [place] [address] Social History Tobacco Use Types Packs/Day Years Used Date Never Assessed Sex Assigned at Date Recorded Not on file documented as of this encounter Last Filed Vital Signs Vital Sign Reading Time Taken Comments Blood Pressure 115/55 07/18/2019 9:07 AM [facility] Pulse 94 07/18/2019 9:07 AM [facility] Temperature - - Respiratory Rate - - Oxygen Saturation 97% 07/18/2019 9:07 AM [facility] Inhaled Oxygen Concentration - - Weight - - Height - - Body Mass Index - - documented in this encounter Plan of Treatment Not on filedocumented as of this encounter Visit Diagnoses Not on filedocumented in this encounter Home Health Visit - Care Plan Visit Details Visit Type - PT FUNCTIONAL ASSESSMENT Discipline - Physical Therapy Problems Problem Description [...] modify 06/16/2019 Active 1 goal linked to Upgrade Home home exercise scheduled/documen Program program jessee intervention Disciplines: Physical Therapy PT Transfer Patient 06/16/2019 Active 1 goal linked to Training demonstrates scheduled/documen Disciplines: impaired ability jessee intervention Physical to perform Therapy transfers and/or bed mobility safely Goals Goal Associated Problem Outcome Goal Met? Visit Not es Physical Therapy General Physical Therapy Progressing No Assessment General Assessment Description: Patient will demonstrate an overall improvement in health status with the implementation of appropriate interventions by the end of the episode of care. Pain Estim/Ultrasound for Progressing No Description: pain control Patient/caregiver will verbalize understanding of pain control recommendations and pain will be controlled to patient's satisfaction by the end of the episode of care. Home Safety Home Safety Progressing No Description: Patient/caregiver will implement strategies to reduce fall risk evidenced by reduced frequency of falls and/or demonstrate improvement on standardized testing. Patient/caregiver demonstrates independence via teach back method for strategies to prevent falls, all by end of episode of care. PT Gait Training PT Gait Training Progressing No Description: Patient will ambulate 400 feet with FWW to enable him to gain independence in and out of home by the end of the episode of care. PT Establish Or Upgrade Home PT Establish or Upgrade Progressing N o Program Home Program Description: Patient/caregiver will verbalize understanding of home exercise program and progression throughout the episode of care. PT Transfer Training PT Transfer Training Progressing No Description: Patient/caregiver will be independent in all transfers and bed mobility utilizing equipment as needed by the end of the episode of care. Interventions Intervention Associated Problem/Goal Status Variance Visi t Notes Pt gait training Problem: PT Gait Training ambula jessee 2X 60 feet Description: Goal: PT Gait Training with FWW and Min A to Evaluate and instruct CGA patient/caregiver in gait training using FWW. documented in this encounter Home Health Visit - Actions and Narratives Actions seated LAQ, marching, hip abd/add manual resist. Stadg hip abd/extension, marching, squats documented in this encounter Care Teams Milk House Worker Relationship Specialty Start Date End Date Elizabeth Jerry, PCP - General Family Medicine 06/15/19 [address] [place] [address] Romero, Consulting Physician Physical Medicine and 06/15/19 [facility], DO Rehabilitation [address] [facility] [address] [place] [address] Romero, Consulting Physician Physical Medicine and 06/15/19 [facility], DO Rehabilitation [address] [facility] [address] [place] [address] documented as of this encounter
--- OUTSIDE RECORDS SUMMARY | 2021-10-04 01:44 | XMS_ITS | Encounter Summary ---
:1940 Author Organization [facility] [address] [place] [address] Care Team Providers Name Role Phone Angelika Jasso DO Unavailable Elizabeth Jerry PA-C Primary Care Provider [phone] Romero, DO Unavailable Reason for Visit Auth/Cert Specialty Diagnoses / Procedures Referred By Contact Refer red To Contact Referral ID Status Reason Start Date Expiration Date Visits Requ ested Visits Authorized [id number] 1 1 Encounter Details Date Type Department Care Team Description 08/23/2019 [facility] Aman Rachel, PT PT HOME VISIT Health [address] [place] [address] [address] [place] [address] Social History Tobacco Use Types Packs/Day Years Used Date Never Assessed Sex Assigned at Date Recorded Not on file documented as of this encounter Last Filed Vital Signs Vital Sign Reading Time Taken Comments Blood Pressure 140/63 08/23/2019 9:06 AM [facility] Pulse 76 08/23/2019 9:06 AM [facility] Temperature - - Respiratory Rate - - Oxygen Saturation 96% 08/23/2019 9:06 AM [facility] Inhaled Oxygen Concentration - - Weight [...] Gait Training Completed 1 step step up 2X 5. climbing Goal: PT Gait Training 4 step Description: ascending/descen ding Instruct patient in . Min A and UE stair climbing. assist hand placement. Pt gait training Problem: PT Gait Training Completed ambula tion X 60 feet Description: Goal: PT Gait Training with FWW and min A Evaluate and instruct patient/caregiver in gait training using FWW. documented in this encounter Home Health Visit - Actions and Narratives Actions seated LAQ, marching, hip abd/add manual resist. Stadg marches documented in this encounter Care Teams Elevator Conductor Relationship Specialty Start Date End Date Elizabeth Jerry, PCP - General Family Medicine 06/15/19 PA-C [address] [place] [phone] Romero, Consulting Physician Physical Medicine and 06/15/19 [facility], DO Rehabilitation [address] [facility] [address] [place] [address] Romero Consulting Physician Physical Medicine and 06/15/19 [facility], DO Rehabilitation [address] [facility] [address] [place] [address] documented as of this encounter
--- OUTSIDE RECORDS SUMMARY | 2021-10-04 01:44 | XMS_ITS | Encounter Summary ---
:1940 Author Organization [facility] Address [address] [place] [address] Care Team Providers Name Role Phone Angelika Jasso DO Unavailable Elizabeth Jerry PAFatou Primary Care Provider Romero, DO Unavailable Reason for Visit Auth/Cert Specialty Diagnoses / Procedures Referred By Contact Refer red To Contact Referral ID Status Reason Start Date Expiration Date Visits Requ ested Visits Authorized [id number] 1 1 Encounter Details Date Type Department Care Team Description 07/20/2019 Home Care Visit [facility] Aman Rachel, PT PT HOME VISIT Health [address] [place] [address] [address] [place] [address] Social History Tobacco Use Types Packs/Day Years Used Date Never Assessed Sex Assigned at Date Recorded Not on file documented as of this encounter Last Filed Vital Signs Vital Sign Reading Time Taken Comments Blood Pressure 119/55 07/20/2019 9:19 AM [facility] Pulse 79 07/20/2019 9:19 AM [facility] Temperature - - Respiratory Rate - - Oxygen Saturation 97% 07/20/2019 9:19 AM [facility] Inhaled Oxygen Concentration - - [...] gait training Problem: PT Gait Training Completed stdg m arching, 5 Description: Goal: PT Gait Training steps Evaluate and instruct forwar d/backward patient/caregiver in gait wi th FWW and CGA training using FWW. X 3. documented in this encounter Home Health Visit - Actions and Narratives Actions Performed seated UE push down into herlinda w, pushing self up off of chair, forward/backward leans; all for core con trol and strength. sit to stand transfers, stdg hip abd and marching. documented in this encounter Care Teams Manager Supply Relationship Specialty Start Date End Date Elizabeth Jerry, PCP - General Family Medicine 06/15/19 [facility] [place] [phone] Romero, Consulting Physician Physical Medicine and 06/15/19 [facility], DO Rehabilitation [address] [facility] [address] [place], [place] [address] Romero Consulting Physician Physical Medicine and 06/15/19 [facility], DO Rehabilitation [address] [facility] [address] [place] [address] documented as of this encounter
--- NOTE | 2021-10-04 08:37 | DI.CT_ITS ---
Exam(s) CT HEAD WO EXAM: CT HEAD WO CLINICAL HISTORY: evaluate hydrocephalus, shunt function,g91.9. TECHNIQUE: Imaging Protocol: Axial computed tomography images with coronal and sagittal reformatted images were created and reviewed COMPARISON: No exams were available for comparison FINDINGS: Ventricles and Extra axial spaces: Ventricular size appears within normal limits. There are no prior s for comparison. If there are priors available they may be submitted and an addendum will be issued . Hemorrhage: None. Cerebral parenchyma: There are areas of decreased attenuation in the white matter most consistent wit h small vessel ischemic disease. No acute territorial infarct is present. There is a ventricular sh unt in place. The tip of the shunt crosses the midline and enters the left lateral ventricle. The s becerra tubing enters via the right parietal bone. Midline shift: None. Brainstem/Cerebellum: Normal. Calvarium: Normal. Visualized Paranasal sinuses/Mastoids: There are findings of chronic sinusitis. Soft Tissues: Unremarkable. IMPRESSION: 1. Ventricular peritoneal shunt tubing is present. Ventricular size appears within normal limits. H owever, there are no priors for comparison. If there are priors available, they may be submitted and an addendum will be issued. 2. Age-appropriate cerebral atrophy and small vessel ischemic disease. RADIATION DOSE DELIVERED: 819.88mGy.cm Total DLP DATA REPOSITORY: All CT scans at this facility are submitted to the National Radiology Data Registry (NRDR) Dose Index Registry (DIR) with the [employer] (A[employer]). RADIATION OPTIMIZATION: All CT scans at this facility use at least one of these dose optimization te chniques: automated exposure control; mA and/or kV adjustment per patient size (includes targeted exa ms where dose is matched to clinical indication); or iterative reconstruction.
== END 2021-10-04 02:01 ==
DX: G91.9 Hydrocephalus, unspecified (principal); I73.9 Peripheral vascular disease, unspecified
CPT/HCPCS: 70450

== ENCOUNTER 2022-03-03 01:29 | Inpatient (IN) | payer MEDICARE, OTHER, SELFPAY ==
[2022-03-03] VITALS (174 sets, daily range): BP systolic 82–136; BP diastolic 38–77; PULSE 43–101; RESP 10–34; TEMP 36.1–39.2; O2SAT 91–97
--- NOTE | 2022-03-03 | DI.US_ITS ---
Exam(s) US ABDOMEN LIMITED EXAM: US ABDOMEN LIMITED CLINICAL HISTORY: enlarged gall bladder ?possible stones on POCU TECHNIQUE: Ultrasound abdomen performed using standard protocol. COMPARISON: No exams were available for comparison FINDINGS: GALLBLADDER: Gallbladder mildly distended. Several small stones.. No evidence of wall thickening. N o pericholecystic fluid identified. NEGRO'S SIGN: Negative. BILIARY SYSTEM: No intrahepatic or extrahepatic biliary ductal dilation. Right kidney: Normal parenchymal thickness.. No evidence of renal calculi. No evidence of hydronephr osis. No renal mass or cyst identified. PANCREAS: Obscured by bowel gas. Fluid: None IMPRESSION: Cholelithiasis. Mild gallbladder distention without definite evidence of acute cholecystitis.. DATA REPOSITORY:
--- NOTE | 2022-03-03 01:30 | DI.RAD_ITS ---
Exam(s) XR PORTABLE CHEST AP EXAM: XR PORTABLE CHEST AP CLINICAL HISTORY: fever, chronic cough TECHNIQUE: 2D digital imaging was performed. COMPARISON: CR XR CHEST 2V PA LATERAL from 09/24/2021 FINDINGS: Heart size is within normal limits. 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 SWITCHBOARD MANAGER shunt is unchanged. The lungs are poorly inflated. No focal infiltrate, effusion or pulmon titus edema is seen. IMPRESSION: No acute pulmonary findings. DATA REPOSITORY: RADIATION DOSE DELIVERED:
--- NOTE | 2022-03-03 01:36 | ED.GENADUL_ITS ---
Discharge Plan Disposition Patient Disposition: [facility] INPATIENT Condition: Stable Discharge Details Chief Complaint: Fever Clinical Impression: Influenza, COVID-19, Weakness generalized, Alzheimer disease Primary Care Provider: Susi Bunch ED Provider: Tristan Collins Home Meds and New Rx's Prescriptions: No Action vitamin B complex [B Complex-Vitamin B12] Tablet 1 tab PO DAILY 0RF cholecalciferol (vitamin D3) 25 mcg (1,000 unit) capsule 25 mcg PO DAILY 0RF albuterol sulfate [Ventolin HFA] 90 mcg/actuation HFA aerosol inhaler 2 puff inhalation Q6H PRN0RF loperamide [Imodium A-D] 2 mg tablet 2 mg PO Q6H PRN (Reason: loose stool) Qty: 30 3RF lorazepam 0.5 mg tablet 0.5 mg PO BID PRN (Reason: anxiety) Qty: 14 0RF Rx Instructions: for agitation, irritability and anxiety donepezil 10 mg tablet 10 mg PO DAILY Qty: 90 0RF pramipexole 0.375 mg tablet extended release 24 hr 0.375 mg PO QHS Qty: 30 0RF levothyroxine 75 mcg tablet 75 mcg PO DAILY Qty: 90 0RF carvedilol [Coreg] 6.25 mg tablet 6.25 mg PO BID Qty: 180 3RF morphine concentrate 100 mg/5 mL (20 mg/mL) solution See Rx Instructions PO Q1H PRN MDD 240 mg Qty: 30 0RF Rx Instructions: 0.25-1.0 ml po q 1 hr prn pain or dyspnea HOSPICE patient lorazepam 1 mg tablet 1 mg PO Q4H PRN PRN (Reason: anxiety, agitation, nausea or dyspnea) Qty: 7 2RF Rx Instructions: start with 1/2 tab if ineffective, give whole tab HOSPICE patient duloxetine [Cymbalta] 20 mg capsule,delayed release(DR/EC) 60 mg PO DAILY 0RF aspirin 81 mg Tablet,Delayed Release (Dr/Ec) 81 mg PO QAM 0RF Medical Decision Making 81-year-old male with fever and loose stool at home over 2 days time. The patient has been exposed to a viral illness and family members with fever and loose stool. He has become weak. His states she is no longer able to care for him at home and they recently have been considering placement to a convalescent home. EMS documented a temperature of 102. Patient arrives with temp of 37.0. Screening blood work, blood culture, urinalysis, chest x-ray, COVID-19 and flu test ordered. Patient has white blood cell count of 7, hematocrit 34, platelets 249. His lactic acid is elevated at 2.2. BUN is 21, creatinine 1.1, chemistries reassuring. Chest x-ray without focal infiltrate see formal report. Patient is positive for both influenza and COVID-19. He will require admission given age, weakness and inability to be at home. Of note the patient was recently seen by palliative care and is to begin hospice. HPI General Mode of arrival: EMS . Date/Time Provider Initiated Documentation: 03/03/22 02:42 . Limitations to Documentation: no limitations . Information obtained by: EMS . History of Present Illness 81 year old M presents to the emergency department with the chief complaint of Fever and loose stool, chronic cough, described as mild, Patient reports no radiation. Patient started experiencing this day(s) and it has been intermittent. improves with No relieving factors improve symptom(s), No exacerbating factors reported . Patient notes cough, fever/chills and weakness. Patient did receive the following treatments prior to arrival, none Related Data Home Medications Medication Instructions Recorded Confirmed aspirin 81 mg tablet,delayed 81 mg PO QAM 06/01/21 02/12/22 release donepezil 10 mg tablet 10 mg PO DAILY #90 tab 09/24/21 02/12/22 duloxetine 20 mg capsule,delayed 60 mg PO DAILY 09/24/21 02/12/22 release (Cymbalta) levothyroxine 75 mcg tablet 75 mcg PO DAILY #90 tab 09/24/21 02/12/22 pramipexole 0.375 mg 0.375 mg PO QHS #30 tab 09/24/21 02/12/22 tablet,extended release 24 hr albuterol sulfate 90 mcg/actuation 2 puff INHALATION Q6H PRN 01/08/22 02/12/22 aerosol inhaler (Ventolin HFA) cholecalciferol (vitamin D3) 25 25 mcg PO DAILY 01/08/22 02/12/22 mcg (1,000 unit) capsule loperamide 2 mg tablet (Imodium 2 mg PO Q6H PRN #30 tab 01/08/22 02/12/22 A-D) vitamin B complex (B 1 tab PO DAILY 01/08/22 02/12/22 Complex-Vitamin B12) carvedilol 6.25 mg tablet (Coreg) 6.25 mg PO BID #180 tab 01/13/22 02/12/22 lorazepam 0.5 mg tablet 0.5 mg PO BID PRN #14 tab 02/12/22 02/12/22 lorazepam 1 mg tablet 1 mg PO Q4H PRN PRN #7 tab 02/12/22 morphine concentrate 100 mg/5 mL See Rx Instructions PO Q1H PRN #30 02/12/22 (20 mg/mL) oral solution ml MDD 240 mg Previous Rx's Medication Instructions Recorded donepezil 10 mg tablet 10 mg PO DAILY #90 tab 09/24/21 levothyroxine 75 mcg tablet 75 mcg PO DAILY #90 tab 09/24/21 pramipexole 0.375 mg 0.375 mg PO QHS #30 tab 09/24/21 tablet,extended release 24 hr loperamide 2 mg tablet (Imodium 2 mg PO Q6H PRN #30 tab 01/08/22 A-D) carvedilol 6.25 mg tablet (Coreg) 6.25 mg PO BID #180 tab 01/13/22 lorazepam 0.5 mg tablet 0.5 mg PO BID PRN #14 tab 02/12/22 lorazepam 1 mg tablet 1 mg PO Q4H PRN PRN #7 tab 02/12/22 morphine concentrate 100 mg/5 mL See Rx Instructions PO Q1H PRN #30 02/12/22 (20 mg/mL) oral solution ml MDD 240 mg Allergies Allergy/AdvReac Type Severity Reaction Status Date / Time clindamycin Allergy Intermediate rash/hives Verified 09/24/21 12:00 General BAUTISTA: 3 Review of Systems Narrative: No report of antipyretics. Dementia. Recent visit by palliative care. Unobtainable due to mental status PFSH All Active Problems (Updated 03/03/22 @ 02:51 by Tristan Collins MD) Influenza (Acute) COVID-19 (Acute) Irritability (Acute) Encounter for hospice care discussion (Acute) Encounter for hospice care (Acute) Decreased activities of daily living (ADL) (Acute) At high risk for skin breakdown (Acute) Restless leg (Acute) Need for home health care (Acute) History of quadruple bypass (Acute) Cough (Acute) Alzheimer disease (Chronic) Advanced directives, counseling/discussion (Acute) Poor balance (Acute) Weakness generalized (Acute) At high risk for falls (Acute) Hypothyroidism (Acute) Cough (Acute) Shortness of breath (Acute) Lesion of lung (Acute) Medical History Bronchitis COPD (chronic obstructive pulmonary disease) HTN (hypertension) Hx of hyperlipidemia Hydrocephalus with shunt Palliative care patient Thyroid disease Surgical History 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 Daughter No problems noted. Daughter No problems noted. Maternal Grandfather , 64 Heart disease Paternal Grandfather , 64 Heart disease Maternal Grandmother , 97 No problems noted. Paternal Grandmother , 66 No problems noted. Social History Smoking/Tobacco Use Status: Former Tobacco Use tobacco type: cigarettes and pipe Quit Date: 09/02/82 Tobacco: How many years used: 31 Second Hand Exposure: No Smoking risk assessment performed?: Yes Alcohol Intake: current Alcohol Intake frequency: holidays/special occasions only Alcohol type: wine and hard liquor Drug use: Never Household members: spouse and family Housing: apartment Communication Needs: None Do you need help understanding health information?: Rarely Pets and animals: Yes Pets and animals: dog(s) Sexually active: No Do you think of yourself as: straight/heterosexual Current gender identity: male What is your relationship status?: living with partner How often do you talk on the phone with friends or family?: never How often do you get together with friends or relatives?: twice per week How often do you attend denominational or gnosticism services?: 1-3 times per year Do you belong to any clubs or organized social groups?: no Panel score (0-1 are the most socially isolated patients): 1 What type of physical activity do you participate in: none, wheelchair-bound and decreased ROM & activity Frequency: does not exercise Deyanira/Zoroastrianism: Scientologist Special deyanira needs: Yes (last rights) Seatbelt use: always Helmet use: Yes Helmet use: always Drive intox or ride w/intox school bus driver/teacher assistant: No Do you feel safe at home: Yes Do you feel safe in your relationship?: Yes Exam Narrative Exam Narrative: GEN: awake, alert, oriented to person place and year, correctly state that [place] is president. Pleasant, well groomed, interactive. HEAD: Normocephalic, atraumatic ENT: Mucous membranes moist, oropharynx unremarkable, External ear exam unremarkable EYES: PERRL, EOMI NECK: Full ROM, no GENNA, no menigismus CHEST/RESP: Dry cough, nontender, clear to auscultation bilateral, no wheeze/rhonchi/rales CARDIOVASCULAR: RRR, distant - no murmur, rub jayson. 2+ Rad pulse bilateral ABDOMEN: Soft, nontender, no mass. +Bowel sounds EXT: Full ROM, no edema, no rash Neuro: Grossly normal neurologic exam, conversant, interactive. Psych: Speech fluent, thoughts congruent, affect normal
[2022-03-03 02:01] LABS: Abs Immature Grans 0.02 10^3/uL (0.0-0.06); Absolute Basophil Count 0.03 10^3/uL (0.0-0.2); Absolute Eosinophil Count 0.13 10^3/uL (0.0-0.7); Absolute Lymphocyte Count 0.49 10^3/uL (1.2-3.4); Absolute Monocyte Count 0.59 10^3/uL (0.1-0.8); Absolute Neutrophil Count 6.09 10^3/uL (1.2-6.7); Basophils % 0.4; Eosinophils % 1.8; HCT 34.1 % (40.0-50.0); HGB 10.9 g/dL (13.5-17.5); Immature Grans % 0.3; Lymphocytes % 6.7; MCH 30.5 pg (27.0-33.0); MCV 96 fL (80-95); MPV 9.6 fL (8.0-11.0); Neutrophils % 82.8; Platelet Count 249 10^3/uL (130-400); RBC 3.57 10^6/uL (4.36-5.78); RDW 13.2 % (11.8-14.1); RDW-SD 46.5 fL; WBC 7.35 10^3/uL (4.4-10.8)
[2022-03-03 02:03] LABS: Lactate 2.2 mmol/L (0.6-1.4)
[2022-03-03 02:16] LABS: ALT 20 U/L (16-63); AST 16 U/L (15-37); Albumin 2.8 g/dL (3.4-5.0); Alkaline Phosphatase 79 U/L (46-116); Anion Gap 10.4 mmol/L (3-11); BUN 21 mg/dL (7-18); Bilirubin, Total 0.5 mg/dL (0.2-1.0); CO2 22.6 mmol/L (21.0-32.0); CREATININE 1.1 mg/dL (0.70-1.30); Calcium 8.2 mg/dL (8.5-10.1); Chloride 106 mmol/L (98-107); Glucose 116 mg/dL (74-106); Magnesium 1.8 mg/dL (1.8-2.4); Potassium 3.6 mmol/L (3.5-5.1); Sodium 139 mmol/L (136-145); Total Protein 6.8 g/dL (6.4-8.2)
[2022-03-03 02:47] LABS: Influenza B PCR Negative (Negative); RSV PCR Negative (Negative)
[2022-03-03 02:50] LABS: COVID-19 PCR Positive (Negative); Influenza A PCR Positive (Negative)
[2022-03-03] MEDS: Normal Saline 1,000 ML 150 ML IV (02:56)
[2022-03-03] MEDS: ACETAMINOPHEN 1,000 MG/100 ML BTL 400 MG IVPB ×2 (02:56→21:09)
--- NOTE | 2022-03-03 03:10 | DI.VRAD_ITS ---
PROCEDURE INFORMATION: Exam: XR Chest Exam date and time: 03/03/2022 1:46 AM Age: 81 years old Clinical indication: Cough and fever; Prior surgery; Surgery date: 6+ months; Surgery type: Cabg; Patient HX: Fever, chronic cough TECHNIQUE: Imaging protocol: XR of the chest. Views: 1 view. COMPARISON: CR XR CHEST 2V PA LATERAL 09/24/2021 12:38 PM FINDINGS: Lungs: Unremarkable. No consolidation. Pleural spaces: Unremarkable. No pleural effusion. No pneumothorax. Heart/Mediastinum: Unremarkable. No cardiomegaly. Bones/joints: Median sternotomy wires noted. IMPRESSION: No acute findings. Dictated and Authenticated by: Vladimir Barbour MD. Ordering:CATARINO Hudson MD
[2022-03-03] MEDS: Normal Saline 1,000 ML 1000 ML IV (03:17)
--- NOTE | 2022-03-03 03:31 | W.PM.HP.N ---
Date of service: 03/03/22 Time of Service: 03:32 Assessment and Plan Assessment and plan (1) Fever: Status: Acute Assessment and plan: Fever in setting of positive COVID and flu. While patient clearly has an infection it is unclear whether the COVID or Flu is causative or incidental at this point. That there has been a diarrheal illness going around the home suggests this could be non-specific gastroenteritis. Or perhaps sole manifestation of COVID? On the other hand I am concerned about the hypotension, and along with elevated lactate suggest possible emerging sepsis. Chest does not seem to be the source but we have yet to obtain urine sample. It is also possible that the recent institution of Scopolamine may be playing some role in the hypotension, or there may be an element of dehydration as well. For now until story clarifies I think it would be nogueira to treat as possible sepsis. Will check procalcitonin, obtain blood cultures, obtain urine via condom cath (patient generally incontinent and as mentioned staff unable to obtain cath specimen). Will give singe empiric dose Rocephin pending further data, aggressive hydration and have removed scopolamine patch. As to the COVID results there does not appear to be any pulmonary involvement or compromise so would not be candidate for Remdesivir or steroids, though perhaps for Paxlovid based on age and fraility and therefore risk of progression. Reviewed ADs, with , and indicated my concerns regarding hypotension. She reiterates she would like patient DNR. History of Present Illness History of Present Illness Chief Complaint: fever, diarrhea Narrative: 81 male with h/o dementia, failure to thrive, family considering placement due to inability to manage at home. Patient has been vaccinated. Here with one day of fever and recent bout of diarrhea; note that a diarrheal illness has been going around the house. No apparent abdominal pain. No cough or SOB reported. EMS report temp 102. Here in ER initial findings of note for absence of fever, COVID positive and Flu positive, with no leukocytosis, negative CXR and lactate 2.2. Staff unable to obtain cath urine. No diarrhea since here. I was asked to evaluate for admission. While in ER blood pressure has trended downward, from low 100s initially to now in 80s. Has received 500 saline to this point. We do not have med list at this point but does state he has been taking his meds, whatever they may be. Only new med is scopolamine patch, started last week. Reviewed ADs, requests DNR. Review of Systems Narrative: per HPI PFSH All Active Problems (Updated 03/03/22 @ 03:44 by Torrey Goldberg MD) Fever (Acute) Influenza (Acute) COVID-19 (Acute) Irritability (Acute) Encounter for hospice care discussion (Acute) Encounter for hospice care (Acute) Decreased activities of daily living (ADL) (Acute) At high risk for skin breakdown (Acute) Restless leg (Acute) Need for home health care (Acute) History of quadruple bypass (Acute) Cough (Acute) Alzheimer disease (Chronic) Advanced directives, counseling/discussion (Acute) Poor balance (Acute) Weakness generalized (Acute) At high risk for falls (Acute) Hypothyroidism (Acute) Cough (Acute) Shortness of breath (Acute) Lesion of lung (Acute) Medical History Bronchitis COPD (chronic obstructive pulmonary disease) HTN (hypertension) Hx of hyperlipidemia Hydrocephalus with shunt Palliative care patient Thyroid disease Surgical History 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 Daughter No problems noted. Daughter No problems noted. Maternal Grandfather , 64 Heart disease Paternal Grandfather , 64 Heart disease Maternal Grandmother , 97 No problems noted. Paternal Grandmother , 66 No problems noted. Social History Smoking/Tobacco Use Status: Former Tobacco Use tobacco type: cigarettes and pipe Quit Date: 09/02/82 Tobacco: How many years used: 31 Second Hand Exposure: No Smoking risk assessment performed?: Yes Alcohol Intake: current Alcohol Intake frequency: holidays/special occasions only Alcohol type: wine and hard liquor Drug use: Never Household members: spouse and family Housing: apartment Communication Needs: None Do you need help understanding health information?: Rarely Pets and animals: Yes Pets and animals: dog(s) Sexually active: No Do you think of yourself as: straight/heterosexual Current gender identity: male What is your relationship status?: living with partner How often do you talk on the phone with friends or family?: never How often do you get together with friends or relatives?: twice per week How often do you attend mandaen or rastafarian services?: 1-3 times per year Do you belong to any clubs or organized social groups?: no Panel score (0-1 are the most socially isolated patients): 1 What type of physical activity do you participate in: none, wheelchair-bound and decreased ROM & activity Frequency: does not exercise Deyanira/Denominational: Jehovah'S Witness Special deyanira needs: Yes (last rights) Seatbelt use: always Helmet use: Yes Helmet use: always Drive intox or ride w/intox pick up driver: No Do you feel safe at home: Yes Do you feel safe in your relationship?: Yes Meds Allergies and Home Medications Allergies Allergy/AdvReac Type Severity Reaction Status Date / Time clindamycin Allergy Intermediate rash/hives Verified 03/03/22 03:07 Home Medications Medication Instructions Recorded Confirmed Type aspirin 81 mg tablet,delayed 81 mg PO QAM 06/01/21 02/12/22 History release donepezil 10 mg tablet 10 mg PO DAILY #90 tab 09/24/21 02/12/22 Rx duloxetine 20 mg capsule,delayed 60 mg PO DAILY 09/24/21 02/12/22 History release (Cymbalta) levothyroxine 75 mcg tablet 75 mcg PO DAILY #90 tab 09/24/21 03/03/22 Rx pramipexole 0.375 mg 0.375 mg PO QHS #30 tab 09/24/21 02/12/22 Rx tablet,extended release 24 hr albuterol sulfate 90 mcg/actuation 2 puff INHALATION Q6H PRN 01/08/22 03/03/22 History aerosol inhaler (Ventolin HFA) cholecalciferol (vitamin D3) 25 25 mcg PO DAILY 01/08/22 03/03/22 History mcg (1,000 unit) capsule loperamide 2 mg tablet (Imodium 2 mg PO Q6H PRN #30 tab 01/08/22 02/12/22 Rx A-D) vitamin B complex (B 1 tab PO DAILY 01/08/22 03/03/22 History Complex-Vitamin B12) carvedilol 6.25 mg tablet (Coreg) 6.25 mg PO BID #180 tab 01/13/22 02/12/22 Rx lorazepam 0.5 mg tablet 0.5 mg PO BID PRN #14 tab 02/12/22 02/12/22 Rx lorazepam 1 mg tablet 1 mg PO Q4H PRN PRN #7 tab 02/12/22 Rx morphine concentrate 100 mg/5 mL See Rx Instructions PO Q1H PRN #30 02/12/22 03/03/22 Rx (20 mg/mL) oral solution ml MDD 240 mg scopolamine base 1 mg over 3 days 1 patch TRANSDERMAL Q3D 03/03/22 03/03/22 History transdermal patch Exam Narrative Exam Narrative: 89/48, 82, 37.0, 14, 93% RA. HEENT atraumatic; neck supple; lungs clear; heart RRR with 2/6 sys murmur best LSB; abdomen soft and NT; extremities w/o edema; neuro Ox1, moves all 4s Results Labs Result diagrams: 03/03/22 01:40 03/03/22 01:40 Labs: Laboratory Results - last 24 hr 03/03/22 03/03/22 03/03/22 01:40 01:40 01:40 WBC RBC Hgb Hct MCV MCH MCHC RDW Plt Count MPV Immature Gran % Neutrophils % Lymphocytes % Monocytes % Eosinophils % Basophils % Nucleated RBC % Absolute Neutrophils Absolute Lymphocytes Absolute Monocytes Absolute Eosinophils Absolute Basophils VBG Lactate 2.2 H* Sodium 139 Potassium 3.6 Chloride 106 Carbon Dioxide 22.6 Anion Gap 10.4 BUN 21 H Creatinine 1.1 Estimated GFR/1.73 m2 >= 60.00 Glucose 116 H Calcium 8.2 L Magnesium 1.8 Total Bilirubin 0.5 AST 16 ALT 20 Alkaline Phosphatase 79 Total Protein 6.8 Albumin 2.8 L COVID-19 Source Not Applicable SARS-CoV-2 (PCR) Positive A Influenza Type A (PCR) Positive A Influenza Type B (PCR) Negative RSV (PCR) Negative 03/03/22 01:40 WBC 7.35 RBC 3.57 L Hgb 10.9 L Hct 34.1 L MCV 96 H MCH 30.5 MCHC 32.0 RDW 13.2 Plt Count 249 MPV 9.6 Immature Gran % 0.3 Neutrophils % 82.8 Lymphocytes % 6.7 Monocytes % 8.0 Eosinophils % 1.8 Basophils % 0.4 Nucleated RBC % 0.0 Absolute Neutrophils 6.09 Absolute Lymphocytes 0.49 L Absolute Monocytes 0.59 Absolute Eosinophils 0.13 Absolute Basophils 0.03 VBG Lactate Sodium Potassium Chloride Carbon Dioxide Anion Gap BUN Creatinine Estimated GFR/1.73 m2 Glucose Calcium Magnesium Total Bilirubin AST ALT Alkaline Phosphatase Total Protein Albumin COVID-19 Source SARS-CoV-2 (PCR) Influenza Type A (PCR) Influenza Type B (PCR) RSV (PCR) Last Vital Signs Temp 37.0 C 03/03/22 01:35 Pulse 82 03/03/22 03:01 Resp 14 03/03/22 03:01 BP 89/48 L 03/03/22 03:01 Pulse Ox 93 03/03/22 01:50
[2022-03-03 05:08] LABS: Lactate 0.5 mmol/L (0.6-1.4)
[2022-03-03 05:45] LABS: Procalcitonin < 0.1 ng/mL
[2022-03-03] MEDS: cefTRIAXone 1,000 MG in Normal Saline 50 ML 100 MG IVPB (05:54)
[2022-03-03] MEDS: Enoxaparin 40 MG/0.4 ML SYR SC (05:56)
[2022-03-03] MEDS: Normal Saline Flush 10 ML SYR IVP ×2 (07:35→12:49)
[2022-03-03] MEDS: Lactated Ringers 500 ML IV (08:00)
--- NOTE | 2022-03-03 08:06 | PGE_ITS ---
Date of Service Date of service: 03/03/22 Time of Service: 08:06 Assessment and Plan Assessment and plan (1) Hypotension: Status: Acute Assessment and plan: Most likely due to dehydration poor oral intake as evidenced by azotemia however sepsis has not been excluded. Blood cultures been obtained and patient's been started on ceftriaxone empirically for UTI. His COVID-19 has not been treated. He has minimal symptoms from his COVID-19 other than his diarrhea. He has no shortness of breath no hypoxemia no pulmonary infiltrates on chest x-ray. At this point he is a candidate for monoclonal antibody which he should receive as he is high risk for deterioration due to his age and comorbidities. He will be started on a one-time dose of Bebtelovimab per my discussion with pharmacy. If his pressure does not respond to additional IV fluid hydration I will restart his norepinephrine at which point he will need a central line. Nursing is trying to establish additional peripheral IVs. 1 hour critical care time spent reviewing the chart discussing the case with the patient's as well as the supervising floorperson, and pharmacist as well as examining and interviewing the patient and placing orders and documentation of notes. (2) Dehydration: Status: Acute Assessment and plan: Gentle IV fluid hydration as noted above. (3) COVID-19: Status: Acute Assessment and plan: Bebtelovimab monoclonal antibody as noted above (4) Influenza: Status: Acute Assessment and plan: Begin Oseltamivir (5) Diarrhea due to COVID-19: Status: Acute Assessment and plan: Symptomatic treatment. We will place him on some Metamucil to help thicken his stools. We will check stool studies but suspect that the diarrhea is either due to his COVID-19 or influenza. (6) Alzheimer disease: Status: Chronic Assessment and plan: We will consult palliative care to assist patient and family with goals of care Subjective Subjective Interval history since last seen: 81-year-old male brought from home by his family with diarrhea of unknown duration but apparently several family members also been having diarrhea. He was also noted to be febrile with the temperature of 102 and subsequent work-up in the emergency department revealed that he was positive for SARS-CoV-2 as well as influenza type A. He was noted to be mildly prerenal with a BUN of 21 creatinine 1.1. He was hydrated with 2 L of normal saline and was started on normal saline at 150 mL an hour. Infectious work-up was pursued including chest x-ray imaging that showed no acute pulmonary findings. CBC on admission showed a mild anemia hemoglobin 10.9 g hematocrit 34% with normal platelet count of 49,000 normal white count of 7300. LFTs look normal. Procalcitonin was ordered was found to be less than 0.1. Blood lactate on admission was mildly elevated 2.2 subsequent reading this morning was down to 0.5. Despite IV fluid hydration patient became hypotensive during the night. He presented to the hospital he had borderline blood pressures in the low 100s to high 90s up to 110s. But throughout the night his blood pressure dropped into the high 80s and low 90s with a mean arterial blood pressure of 50-54. Patient was subsequently started on norepinephrine at a low rate of 0.05 mcg/kg/min with improvement in his blood pressure with systolic readings in the 110s. Subsequently the norepinephrine drip has been weaned off and his blood pressure is now drifting downward again. robotics technician performed a [id number] ultrasound study of the [place]. Reportedly gallbladder is enlarged but she did not see any gallstones or gallbladder wall thickening or pericholecystic fluid. There was no hydronephrosis. He does have acute urinary retention within the large bladder. Urinalysis and urine culture pending Urena catheter placement. robotics technician did a subxiphoid view of the heart and IVC and found the IVC to be small and greater than 50% inspiratory collapse. Based on this we will give the patient some additional IV fluids of LR 500 mL and see how his blood pressure and urine output respond. Patient had blood cultures obtained last night was started on ceftriaxone empirically for possible UTI. Patient's comorbidities include Alzheimer's dementia, restless leg syndrome, COPD not oxygen dependent, essential hypertension, coronary artery disease status post coronary bypass graft, and hydrocephalus with shunt. Apparently palliative care has been following him on outpatient basis and family has been considering placement because he has been failing at home. Exam Narrative Exam Narrative: Elderly male lying in bed in semisolid position not in any respiratory distress. He is alert but he is only oriented to person and place. He knows he is in [facility] he thinks he is in [facility] ([facility] former name) however he does not know the year or the month of the season. He denies any shortness of breath or chest pain or nausea. He has no abdominal pain. Neck is supple nontender no JVD normal carotid pulses Lungs are clear to auscultation Heart is regular rate and rhythm no appreciable murmur rub Abdomen is soft nontender there is distention of his bladder to just below the umbilicus. No rebound tenderness or guarding no palpable organomegaly other than bladder distention. Lower extremities without peripheral cyanosis or edema. He has diminished pedal pulses. Feet are cool but not cold and no acral cyanosis. Moves all 4 extremities well voluntarily. He follows simple commands. Objective Last Vital Signs Temp 36.1 C L 03/03/22 06:12 Pulse 67 03/03/22 07:01 Resp 25 H 03/03/22 07:01 BP 87/44 L 03/03/22 07:01 Pulse Ox 91 L 03/03/22 06:10 Laboratory Results - last 24 hr 03/03/22 03/03/22 03/03/22 01:40 01:40 01:40 WBC RBC Hgb Hct MCV MCH MCHC RDW Plt Count MPV Immature Gran % Neutrophils % Lymphocytes % Monocytes % Eosinophils % Basophils % Nucleated RBC % Absolute Neutrophils Absolute Lymphocytes Absolute Monocytes Absolute Eosinophils Absolute Basophils VBG Lactate 2.2 H* Sodium 139 Potassium 3.6 Chloride 106 Carbon Dioxide 22.6 Anion Gap 10.4 BUN 21 H Creatinine 1.1 Estimated GFR/1.73 m2 >= 60.00 Glucose 116 H Calcium 8.2 L Magnesium 1.8 Total Bilirubin 0.5 AST 16 ALT 20 Alkaline Phosphatase 79 Total Protein 6.8 Albumin 2.8 L Procalcitonin COVID-19 Source Not Applicable SARS-CoV-2 (PCR) Positive A Influenza Type A (PCR) Positive A Influenza Type B (PCR) Negative RSV (PCR) Negative 03/03/22 03/03/22 03/03/22 01:40 05:00 05:00 WBC 7.35 RBC 3.57 L Hgb 10.9 L Hct 34.1 L MCV 96 H MCH 30.5 MCHC 32.0 RDW 13.2 Plt Count 249 MPV 9.6 Immature Gran % 0.3 Neutrophils % 82.8 Lymphocytes % 6.7 Monocytes % 8.0 Eosinophils % 1.8 Basophils % 0.4 Nucleated RBC % 0.0 Absolute Neutrophils 6.09 Absolute Lymphocytes 0.49 L Absolute Monocytes 0.59 Absolute Eosinophils 0.13 Absolute Basophils 0.03 VBG Lactate 0.5 L Sodium Potassium Chloride Carbon Dioxide Anion Gap BUN Creatinine Estimated GFR/1.73 m2 Glucose Calcium Magnesium Total Bilirubin AST ALT Alkaline Phosphatase Total Protein Albumin Procalcitonin < 0.1 COVID-19 Source SARS-CoV-2 (PCR) Influenza Type A (PCR) Influenza Type B (PCR) RSV (PCR) Reviewed Pertinent PMH: Yes
--- NOTE | 2022-03-03 08:55 | PUCC_ITS ---
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 He has received 2L of normal saline in the ED and my POCUS findings were significant for his ability to tolerate some more fluid. Given his borderline blood pressures, I did ask for an addition 500cc of LR to be given. I discontinued his maintenance NS. I would recommend low volume bolus dosing to keep up with his urinary and stool output and if he become hypotensive as a trial as well. If after a bolus his blood pressure does not improve then he should have a PICC placed and be started on Levophed, although I suspect his hypotension is simply dehydration and should improve. On FAST exam, his gallbladder is dilated and there are non-calcified stone-like ma terial see in the gall bladder, although I cannot say that the gallbladder wall is thickened. He should have a formal abdominal ultrasound to further evaluate this. Recommendations Pulmonary: h/o COPD - continue home prn albuterol Cardiac: Hypovolemic shock - recommend EKG if not already completed - s/p 2L NS in ED and 500cc LR in ICU - replace GI and urinary losses with low volume bolus LR - should resolve with conservative fluid resuscitation Renal: Urinary retention - recommend Barnes placement - may need urology assistance given issues with straight cath earlier in admisison Lactic acidosis - resolved with IVF I&O: Intake & Output 02/28/22 03/01/22 03/02/22 03/03/22 23:59 23:59 23:59 23:59 Intake Total 1150 / 1150 Balance 1150 / 1150 Weight 88.1 kg Daily Fluid Goal:: even to slightly positive (no more than 1L) GI Nutrition: Ok for normal diet Dilated gallbladder with stones? 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 He was found to have both COVID and flu. His lactate was mildly elevated but normalized after fluid resuscitation. His blood pressures have been on the soft side and was being started on a Levophed drip on my assessment but during my assessment the drip was able to be stopped. He has been written for monoclonal antibody treatment for the COVID and Tamiflu for this flu, which I do agree with. On my evaluation the patient seems comfortable and does not have any complaints. He has a condom catheter on but has not voided (despite urine in his bladder on my POCUS exam). Exam Narrative Exam Narrative: POCUS: Both cardiac views and a FAST exam were performed: Parasternal views were good, apical view obstructed by air, subxyphoid view suboptimal, IVC seen posteriorly through liver. Normal appearing cardiac function seen. Not apparently hyperkinetic, normal appearing chamber sizes. Normal appearing RV (limited views). IVC collapsible >50% with inspiration. On FAST exam: no free fluid seen. Normal appearing kidneys. Distended stomach seen. Distended bladder seen. Very large gall bladder with non calcified ?stones seen. I do not beleive the gall bladder wall is thickened. Could not appreciate CBD. Gen: NAD, normal respiratory effort, well-nourished HENT: PERRL, nasal turbinates normal without erythema or inflammation, moist oral mucosa, Mallampati 2, No LAD or JVD Chest: No respiratory distress, normal appearance of chest, clear to auscultation bilaterally, no crackles or wheezes, normal inspiratory effort Heart: regular rate and rhythym, no murmurs, rubs or gallops Abdomen: Non-distended, soft, non tender Extremities: No clubbing, edema, cyanosis, rashes Neuro: AAOx3 , non focal Psych: cooperative, appropriate mental affect Most Recent VS/Results Last Vital Signs Temp 36.1 C L 03/03/22 06:12 Pulse 67 03/03/22 07:01 Resp 25 H 03/03/22 07:01 BP 87/44 L 03/03/22 07:01 Pulse Ox 91 L 03/03/22 06:10 Laboratory Results - last 24 hr 03/03/22 03/03/22 03/03/22 01:40 01:40 01:40 WBC RBC Hgb Hct MCV MCH MCHC RDW Plt Count MPV Immature Gran % Neutrophils % Lymphocytes % Monocytes % Eosinophils % Basophils % Nucleated RBC % Absolute Neutrophils Absolute Lymphocytes Absolute Monocytes Absolute Eosinophils Absolute Basophils VBG Lactate 2.2 H* Sodium 139 Potassium 3.6 Chloride 106 Carbon Dioxide 22.6 Anion Gap 10.4 BUN 21 H Creatinine 1.1 Estimated GFR/1.73 m2 >= 60.00 Glucose 116 H Calcium 8.2 L Magnesium 1.8 Total Bilirubin 0.5 AST 16 ALT 20 Alkaline Phosphatase 79 Total Protein 6.8 Albumin 2.8 L Procalcitonin COVID-19 Source Not Applicable SARS-CoV-2 (PCR) Positive A Influenza Type A (PCR) Positive A Influenza Type B (PCR) Negative RSV (PCR) Negative 03/03/22 03/03/22 03/03/22 01:40 05:00 05:00 WBC 7.35 RBC 3.57 L Hgb 10.9 L Hct 34.1 L MCV 96 H MCH 30.5 MCHC 32.0 RDW 13.2 Plt Count 249 MPV 9.6 Immature Gran % 0.3 Neutrophils % 82.8 Lymphocytes % 6.7 Monocytes % 8.0 Eosinophils % 1.8 Basophils % 0.4 Nucleated RBC % 0.0 Absolute Neutrophils 6.09 Absolute Lymphocytes 0.49 L Absolute Monocytes 0.59 Absolute Eosinophils 0.13 Absolute Basophils 0.03 VBG Lactate 0.5 L Sodium Potassium Chloride Carbon Dioxide Anion Gap BUN Creatinine Estimated GFR/1.73 m2 Glucose Calcium Magnesium Total Bilirubin AST ALT Alkaline Phosphatase Total Protein Albumin Procalcitonin < 0.1 COVID-19 Source SARS-CoV-2 (PCR) Influenza Type A (PCR) Influenza Type B (PCR) RSV (PCR) Review of Systems All systems reviewed & are unremarkable except as noted in HPI and below Time spent with patient Time spent in Critical Care: 35 Time spent in Critical care included: Chart review, Documenting critically ill care, Time at immediate bedside and Discussing critically ill care with other medical staff Multi-Disciplinary Checklist Lines/Tubes CENTRAL LINE: no ARTERIAL LINE: no BARNES: yes, Barnes Day#: 1 Note: Condom cath - plan for conventional indwelling Barnes today due to retention ENDOTRACHEAL TUBE: no ICU Maintenance GLUCOSE 140-180mg/dL: yes NUTRITION AT GOAL: yes PRESSURE ULCER: no RESTRAINTS: no ANTIBIOTICS(if yes, consider Stewardship): Yes Social Issues FAMILY UPDATED: yes PT/OT: yes GOALS/DISPOSITION/GENERAL UTILITY 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
[2022-03-03 09:09] LABS: Bilirubin Negative (Negative); Blood Moderate (Negative); Clarity Clear (Clear); Glucose Negative (Negative); Ketones Negative (Negative); Leukocyte Esterase Negative (Negative); Nitrite Negative (Negative); Specific Gravity >= 1.030 (1.005-1.025); Urobilinogen 0.2 EU/dL (Up TO 0.2)
[2022-03-03 09:16] LABS: Bacteria Negative HPF (Negative); C & S Indicated? No; Casts Negative LPF (Negative); Crystals Negative HPF (Negative); Epithelial Cells Rare HPF (Negative); Mucus Negative (Negative); RBC 20-50 HPF (0-2); WBC 0-2 HPF (0-5)
[2022-03-03] MEDS: Lidocaine 2% Jelly 11 ML SYR (09:52)
[2022-03-03] MEDS: Oseltamivir 75 MG CAP PO (10:38)
--- NOTE | 2022-03-03 12:09 | PHA.REVIEW ---
Pharmacy Admission Review - Admission Clinical Review (Last Reviewed 03/03/22 @ 03:42 by Torrey Goldberg MD) Lactic acidosis (Acute) Atelectasis of both lungs (Acute) Hypotension (Acute) Dehydration (Acute) Diarrhea due to COVID-19 (Acute) Fever (Acute) Influenza (Acute) COVID-19 (Acute) Weakness generalized (Acute) clindamycin Allergy (Intermediate, Verified 03/03/22 03:07) rash/hives Resuscitation Status DNR/DNI Height 5 ft 10 in Weight 88.1 kg - Comments Comments/Follow Ups: Fever, Hypotension, Covid (not the reason for admission), Flu, dementia, Alzheimers. Hospice patient. Several family members have been ill. Gave Bebtolivimab x1, Tamiflu. Patient on Norepinephrine infusion for BP control-currently paused, Afebrile now, Blood cultures pending. IV APAP, Rocephin. No oxygen requirement. Palliative care will see him today to clarify treatment goals - Renal Dosing Renal Dosing: BUN 21 mg/dL (7-18) H 03/03/22 01:40 Creatinine 1.1 mg/dL (0.70-1.30) 03/03/22 01:40 Medications needing adjustments: Reviewed (CrCl~52ml/min) List of meds needing interventions: Tamiflu (75mg x1, then 30mg po BID-will ask MD) - Anticoagulation Anticoagulation: Hgb 10.9 g/dL (13.5-17.5) L 03/03/22 01:40 Hct 34.1 % (40.0-50.0) L 03/03/22 01:40 Plt Count 249 10^3/uL (130-400) 03/03/22 01:40 Creatinine 1.1 mg/dL (0.70-1.30) 03/03/22 01:40 DVT Prophylaxis: Reviewed Medications: Enoxaparin - Relevant Labs Sodium 139 mmol/L (136-145) 03/03/22 01:40 Potassium 3.6 mmol/L (3.5-5.1) 03/03/22 01:40 Chloride 106 mmol/L (98-107) 03/03/22 01:40 Magnesium 1.8 mg/dL (1.8-2.4) 03/03/22 01:40 Electrolytes, C-Reactive P, ESR: Reviewed (Procal <0.1, Serology: positive Influenza, Positive COVID, lactate trending down) - DM Control DM Control: Glucose 116 mg/dL (74-106) H 03/03/22 01:40 Insulin Dosing: N/A - BP Control BP Control: Blood Pressure 108/67 Blood Pressure 107/51 Blood Pressure 109/57 Blood Pressure 103/47 Blood Pressure 103/49 Blood Pressure 107/58 Blood Pressure 105/51 Blood Pressure 113/55 Blood Pressure 99/53 Blood Pressure 130/53 Blood Pressure 118/54 Blood Pressure 106/49 Blood Pressure 119/58 Blood Pressure 104/48 Blood Pressure 104/57 Blood Pressure 87/44 Blood Pressure 93/44 Blood Pressure 83/45 Blood Pressure 82/38 Blood Pressure 92/41 Blood Pressure 89/51 Blood Pressure 93/43 Blood Pressure 94/51 Blood Pressure 100/44 Blood Pressure 112/49 Blood Pressure 101/53 Blood Pressure 95/41 Blood Pressure 86/45 Blood Pressure 89/49 Blood Pressure 89/48 Blood Pressure 91/45 Blood Pressure 110/50 Blood Pressure 108/63 Blood Pressure 110/49 Blood Pressure 90/49 Blood Pressure 102/56 Blood Pressure 102/56 - Home Meds Home Med List reviewed: Reviewed (none ordered at this time, no external medication history) Relevent Home Meds Not ordered & why?: Donepezil, Levothyroxine, Cymbalta, Coreg, Pramipexole according to last [facility] visit 09/24/21, but also saw Hospice 02/12/22 added Lorazepam, ?Morphine oral concentrate on list. Not reconciled at this time - Current meds Current Medication Order Review: Reviewed (c/o diarrhea at home, using Metamucil as a binding agent to absorb the liquid stools)
--- NOTE | 2022-03-03 17:36 | PDOC.CMIN ---
- If Service Date Differs Date of service: 03/03/22 Time of Service: 17:36 Care Management Initial Assess REASON FOR HOSPITALIZATION:: fever, hypotension, COVID PAST MEDICAL HISTORY/PAST SURGICAL HISTORY:: All Active Problems. Fever (Acute). Influenza (Acute). COVID-19 (Acute). Irritability (Acute). Encounter for hospice care discussion (Acute). Encounter for hospice care (Acute). Decreased activities of daily living (ADL) (Acute). At high risk for skin breakdown (Acute). Restless leg (Acute). Need for home health care (Acute). History of quadruple bypass (Acute). Cough (Acute). Alzheimer disease (Chronic). Advanced directives, counseling/discussion (Acute). Poor balance (Acute). Weakness generalized (Acute). At high risk for falls (Acute). Hypothyroidism (Acute). Cough (Acute). Shortness of breath (Acute). Lesion of lung (Acute). Medical History. Bronchitis. COPD (chronic obstructive pulmonary disease). HTN (hypertension). Hx of hyperlipidemia. Hydrocephalus. with shunt. Palliative care patient. Thyroid disease. Surgical History. History of fusion of cervical spine. Hx of CABG PREVIOUS FUNCTIONAL STATUS/SOCIAL/FAMILY SUPPORTS:: Brett lives in [place] with his , Jill and their daughter, Danay. Per report, he has Alzheimer's and has been declining, and was transitioned to Hosp[facility] at home. He is totally dependent on others for all ADL's, and has been bed bound for about a month. CURRENT FUNCTIONAL STATUS:: Brett is currently on precautions for Covid, therefore CM was not able to meet with him. CM talked to his daughter, Danay, who stated that the family will likely be seeking placement. CM also received a call from Hospice, who stated that they did not receive a call from the family, and did not know that he was admitted until this morning. CM asked the family to contact Hospice in order to determine what Brett's goals are. CM will discuss placement with hospice and the family. CM will continue to follow. ADVANCE DIRECTIVES:: On file, Jill listed as agent. Danay listed as alternate agent. Has patient been provided with info about the portal/API?: Yes Did the patient sign up for the portal?: No CODE STATUS:: DNR/DNI INSURANCE COVERAGE / FINANCIAL ISSUES:: [employer]/ [employer] CURRENT HOME/COMMUNITY SERVICES/EQUIPMENT:: Brett has support from Hospice, with his Jill as his primary caregiver. PRIMARY CARE PHYSICIAN:: Susi Bunch POTENTIAL DISCHARGE NEEDS:: SNF placement vs home with hospice support PATIENT/FAMILY EDUCATION NEEDS:: Review discharge instructions and limitations, discussion of goals of care. ANTICIPATED BARRIERS TO DISCHARGE:: May require placement. Brett is currently enrolled in Hospice, which may limit his options for placement. TRANSPORTATION:: EMS vs transport with family. PLAN:: Brett is currently being treated at ICU level of care. He is currently enrolled in Hospice. Palliative care has been consulted to discuss goals of care and resumption of hospice vs SNF placement. He will follow up with his PCP and discharge plan of care, and will likely transport via EMS. CM will continue to follow.
[2022-03-03] MEDS: Oseltamivir 30 MG CAP PO (20:35)
[2022-03-03] MEDS: Psyllium PKT 1 EACH PO (20:35)
[2022-03-04] VITALS (12 sets, daily range): BP systolic 101–147; BP diastolic 42–95; PULSE 70–97; RESP 22–27; TEMP 36.4–37.2; O2SAT 92–94
[2022-03-04] MEDS: Enoxaparin 40 MG/0.4 ML SYR SC (05:46)
[2022-03-04] MEDS: cefTRIAXone 1 GM/50 ML BAG IVPB (05:46)
[2022-03-04 07:02] LABS: Abs Immature Grans 0.02 10^3/uL (0.0-0.06); Absolute Basophil Count 0.02 10^3/uL (0.0-0.2); Absolute Eosinophil Count 0.08 10^3/uL (0.0-0.7); Absolute Lymphocyte Count 1.34 10^3/uL (1.2-3.4); Absolute Monocyte Count 0.78 10^3/uL (0.1-0.8); Absolute Neutrophil Count 3.07 10^3/uL (1.2-6.7); Basophils % 0.4; Eosinophils % 1.5; HCT 30.7 % (40.0-50.0); Immature Grans % 0.4; Lymphocytes % 25.2; MCHC 32.6 % (32.0-36.0); MCV 95 fL (80-95); MPV 9.8 fL (8.0-11.0); Monocytes % 14.7; Neutrophils % 57.8; Platelet Count 222 10^3/uL (130-400); RBC 3.23 10^6/uL (4.36-5.78); RDW 13.1 % (11.8-14.1); RDW-SD 45.6 fL; WBC 5.31 10^3/uL (4.4-10.8)
[2022-03-04 07:14] LABS: Anion Gap 10.7 mmol/L (3-11); BUN 21 mg/dL (7-18); CO2 22.3 mmol/L (21.0-32.0); Calcium 8.2 mg/dL (8.5-10.1); Chloride 106 mmol/L (98-107); Glucose 84 mg/dL (74-106); Potassium 3.4 mmol/L (3.5-5.1); Sodium 139 mmol/L (136-145)
[2022-03-04 07:49] LABS: C Diff PCR Negative (Negative)
--- NOTE | 2022-03-04 09:22 | PUCC_ITS ---
General Date of Service Date of service: 03/04/22 Time of Service: : Assessment and Plan Assessment and plan (1) Hypotension: Status: Acute (2) Dehydration: Status: Acute (3) Fever: Status: Acute (4) Influenza: Status: Acute (5) COVID-19: Status: Acute (6) Alzheimer disease: Status: Chronic (7) Atelectasis of both lungs: Status: Acute (8) Anemia: Status: Chronic (9) Lactic acidosis: Status: Acute (10) Hydrocephalus: Assessment and plan: This is a 81 yo man with hydrocephalus and PRESIDING JUDGE shunt, Alzheimers and is on hospice per palliative care team who is admitted to the ICU for COVID and the Flu found to be hypovolemic due to diarrhea. He has received 2L of normal saline in the ED and then another 500cc of LR in the ICU after POCUS. His blood pressure is much improved and he has not required Levophed. I saw gallstones on bedside FAST and so a formal abdominal ultrasounds was performed which did see cholelithiasis but with no signs of acute cholecystitis. He no longer requires ICU level of care. Recommendations Pulmonary: h/o COPD - continue home prn albuterol Atelectasis - recommend IS Cardiac: Hypovolemic shock - recommend EKG if not already completed - s/p 2L NS in ED and 500cc LR in ICU - resolved Renal: Urinary retention - s/p Barnes placement Lactic acidosis - resolved with IVF I&O: Intake & Output 03/01/22 03/02/22 03/03/22 03/04/22 23:59 23:59 23:59 23:59 Intake Total 2956.196 / 2956.196 200 / 200 Output Total 1025 / 1025 300 / 300 Balance 1931.196 / 1931.196 -100 / -100 Weight 88.1 kg 88.4 kg Daily Fluid Goal:: even GI Nutrition: Ok for normal diet Dilated gallbladder with stones? - no acute cholecystitis seen on abd US Date of Last Bowel Movement: 03/03/22 Infectious Disease: COVID - s/p monoclonal antibody therapy - supportive care - no pulmonary concerns - in my opinion can discontinue ceftriaxone Influenza A - on Tamiflu - supportive care Hematologic: Anemia - chronic, continue to monitor Neurologic: Hydrocephalus with PRESIDING JUDGE shunt - monitor mental status Alzheimers - hospice ordered per palliative care - recommend palliative care to see while admitted Endocrine: No acute concerns Lines: PIV Barnes Prophylaxis: Lovenox Code Status: Resuscitation Status DNR/DNI Subjective Critical and life-threatening events over the past 24 hours: Frank is doing well. He denies breathing trouble or abdominal pain. He is asking to see his daughter. Exam Narrative Exam Narrative: POCUS 03/03/22: Both cardiac views and a FAST exam were performed: Parasternal views were good, apical view obstructed by air, subxyphoid view suboptimal, IVC seen posteriorly through liver. Normal appearing cardiac function seen. Not apparently hyperkinetic, normal appearing chamber sizes. Normal appearing RV (limited views). IVC collapsible >50% with inspiration. On FAST exam: no free fluid seen. Normal appearing kidneys. Distended stomach seen. Distended bladder seen. Very large gall bladder with non calcified ?stones seen. I do not beleive the gall bladder wall is thickened. Could not appreciate CBD. Gen: NAD, normal respiratory effort, well-nourished HENT: PERRL, nasal turbinates normal without erythema or inflammation, moist oral mucosa, Mallampati 2, No LAD or JVD Chest: No respiratory distress, normal appearance of chest, clear to auscultation bilaterally, no crackles or wheezes, normal inspiratory effort Heart: regular rate and rhythym, no murmurs, rubs or gallops Abdomen: Non-distended, soft, non tender Extremities: No clubbing, edema, cyanosis, rashes Neuro: AAOx3 , non focal Psych: cooperative, appropriate mental affect Most Recent VS/Results Last Vital Signs Temp 37.2 C 03/04/22 03:26 Pulse 97 H 03/04/22 06:01 Resp 25 H 03/04/22 06:01 BP 142/84 H 03/04/22 06:01 Pulse Ox 92 03/04/22 03:26 Laboratory Results - last 24 hr 03/04/22 03/04/22 03/04/22 05:40 06:15 06:25 WBC 5.31 RBC 3.23 L Hgb 10.0 L Hct 30.7 L MCV 95 MCH 31.0 MCHC 32.6 RDW 13.1 Plt Count 222 MPV 9.8 Immature Gran % 0.4 Neutrophils % 57.8 Lymphocytes % 25.2 Monocytes % 14.7 Eosinophils % 1.5 Basophils % 0.4 Nucleated RBC % 0.0 Absolute Neutrophils 3.07 Absolute Lymphocytes 1.34 Absolute Monocytes 0.78 Absolute Eosinophils 0.08 Absolute Basophils 0.02 Sodium 139 Potassium 3.4 L Chloride 106 Carbon Dioxide 22.3 Anion Gap 10.7 BUN 21 H Creatinine 1.0 Estimated GFR/1.73 m2 >= 60.00 Glucose 84 Calcium 8.2 L Stl C.difficile Tox PCR Negative Review of Systems All systems reviewed & are unremarkable except as noted in HPI and below Time spent with patient Time spent in Critical Care: 35 Time spent in Critical care included: Chart review, Documenting critically ill care, Time at immediate bedside and Discussing critically ill care with other medical staff Multi-Disciplinary Checklist Lines/Tubes CENTRAL LINE: no ARTERIAL LINE: no BARNES: yes, Barnes #: 1 ENDOTRACHEAL TUBE: no ICU Maintenance GLUCOSE 140-180mg/dL: yes NUTRITION AT GOAL: yes PRESSURE ULCER: no RESTRAINTS: no ANTIBIOTICS(if yes, consider Stewardship): Yes Social Issues FAMILY UPDATED: yes PT/OT: yes GOALS/DISPOSITION/MARINE EQUIPMENT RESEARCH ENGINEER: 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
[2022-03-04] MEDS: Oseltamivir 30 MG CAP PO ×2 (09:35→21:01)
[2022-03-04] MEDS: Psyllium PKT 1 EACH PO ×2 (09:35→21:01)
--- NOTE | 2022-03-04 10:04 | PGE_ITS ---
Date of Service Date of service: 03/04/22 Time of Service: 10:04 Assessment and Plan Assessment and plan (1) COVID-19: Status: Acute Assessment and plan: Despite being fully vaccinated and having had single booster the developed COVID-19. Patient was treated with the monoclonal antibody Bebtelovimab. He is not having any hypoxemia or dyspnea. (2) Diarrhea due to COVID-19: Status: Acute Assessment and plan: Stools are now soft and more formed. Occult blood negative. (3) Hypotension: Status: Resolved Assessment and plan: Hypotension was secondary to dehydration. Patient is now tolerating oral diet not requiring any IV fluids. He has not required any vasopressors since yesterday morning. Lactic acidosis resolved with IV fluids. Blood culture showed no growth. No evidence for bacterial infection. We will discontinue Rocephin. (4) Influenza: Status: Acute Assessment and plan: Patient currently on Oseltamivir but has no cough or dyspnea. (5) Lactic acidosis: Status: Resolved Assessment and plan: Lactic acidosis was secondary to dehydration and poor oral intake now resolved after IV fluid hydration yesterday. (6) Dehydration: Status: Acute Assessment and plan: Azotemia has improved although his potassium level is low and have put him on oral replacement. Patient is also receiving nutritional supplemental shakes. (7) Alzheimer disease: Status: Chronic (8) Anemia: Status: Chronic Assessment and plan: Stable (9) Atelectasis of both lungs: Status: Acute Assessment and plan: I would order an incentive spirometry however I do not think that his dementia will allow him to comprehend how to properly use this. 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 At this point I will discontinue his Rocephin as he has no evidence of bacterial infection (11) Discharge planning issues: Status: Acute Assessment and plan: Per my discussion with shoe caser yesterday family is seeking nursing home home placement as they can no longer care for him at home. Patient has been enrolled in hospice at home. Subjective Subjective Interval history since last seen: Brett denies any complaints. He is much more alert today than he was yesterday although he remains confused probably due to his baseline dementia. He recognizes in the hospital but cannot tell me the name of the hospital and could not give me the month or the year. Exam Narrative Exam Narrative: Elderly male lying in bed in an upright position. Lungs are clear to auscultation although he does not take very deep breaths. Heart regular rate and rhythm Abdomen soft nondistended normal bowel sounds no guarding or rebound tenderness. Lower extremities peripheral cyanosis or edema. Pedal pulses intact feet are warm and dry. Neuro exam no focal motor deficits moves all 4 extremities. Objective Last Vital Signs Temp 37.2 C 03/04/22 03:26 Pulse 97 H 03/04/22 06:01 Resp 25 H 03/04/22 06:01 BP 142/84 H 03/04/22 06:01 Pulse Ox 92 03/04/22 03:26 Laboratory Results - last 24 hr 03/04/22 03/04/22 03/04/22 05:40 06:15 06:25 WBC 5.31 RBC 3.23 L Hgb 10.0 L Hct 30.7 L MCV 95 MCH 31.0 MCHC 32.6 RDW 13.1 Plt Count 222 MPV 9.8 Immature Gran % 0.4 Neutrophils % 57.8 Lymphocytes % 25.2 Monocytes % 14.7 Eosinophils % 1.5 Basophils % 0.4 Nucleated RBC % 0.0 Absolute Neutrophils 3.07 Absolute Lymphocytes 1.34 Absolute Monocytes 0.78 Absolute Eosinophils 0.08 Absolute Basophils 0.02 Sodium 139 Potassium 3.4 L Chloride 106 Carbon Dioxide 22.3 Anion Gap 10.7 BUN 21 H Creatinine 1.0 Estimated GFR/1.73 m2 >= 60.00 Glucose 84 Calcium 8.2 L Stl C.difficile Tox PCR Negative
[2022-03-04 10:11] LABS: Lab Add On Test DONE
--- NOTE | 2022-03-04 10:30 | PDOC.CMPRO ---
- If Service Date Differs Date of service: 03/04/22 Time of Service: 10:38 Care Management Progress Note S/O: Brett continues to be monitored in the ICU, although he was transferred to M/S status today. He is on Covid precautions, therefore CM did not meet with him in person. CM called his , Jill, who stated that she feels that he needs to be placed at a facility, as she cannot care for him at home. CM discussed placement options, and she stated that she would prefer that he goes to [facility]. CM stated that it is important that she discuss his plan with Hospice first, before placement is sought, as this will direct the level of care that he will need at a facility. She expressed that she is very overwhelmed, and CM offered to connect her to Hospice tomorrow. CM will continue to follow. A: Brett is an 81 year old male admitted to [facility] on 03/03/22 with fever, hypotension, COVID. P: Brett is currently being treated at ICU level of care. He is also currently enrolled in Hospice. Palliative care has been consulted to discuss goals of care and resumption of hospice vs SNF placement. He will follow up with his PCP and discharge plan of care, and will likely transport via EMS. CM will continue to follow.
[2022-03-04] MEDS: Potassium Chloride Liquid 20 MEQ PKT 40 MEQ PO (11:55)
--- NOTE | 2022-03-04 17:00 | NT_ITS ---
Date of service: 03/04/22 PT Notes Visit Reasons: fever,Hypotension,Covid Per conversation with CLYDE Costa, hold off on PT evaluation until clear functional mobility and overall goals of care are reviewed with family/POA. Thank you for the opportunity to participate in the care of this patient. Sowmya Smith PT, DPT, CLT [facility] [place], [place]
[2022-03-04] MEDS: Donepezil 5 MG TAB 10 MG PO (17:25)
[2022-03-04] MEDS: Potassium Chloride Liquid 20 MEQ PKT PO ×2 (17:26→21:01)
[2022-03-04] MEDS: DULoxetine 20 MG CAP PO (17:27)
[2022-03-04] MEDS: Carvedilol 6.25 MG TAB PO (21:01)
[2022-03-04] MEDS: LORazepam 0.5 MG TAB PO (21:02)
[2022-03-04] MEDS: Pramipexole 0.25 MG TAB 0.375 MG PO (21:02)
[2022-03-05] VITALS (11 sets, daily range): BP systolic 119–126; BP diastolic 55–59; PULSE 60–82; RESP 2–24; TEMP 36.2–36.6; O2SAT 93–95
[2022-03-05 00:08] LABS: Campylobacter PCR Negative (Negative); Salmonella PCR Negative (Negative); Shiga Toxin PCR Negative (Negative); Shigella/Enteroinvasive Ecoli Negative (Negative)
[2022-03-05] MEDS: Levothyroxine 75 MCG TAB PO (05:45)
[2022-03-05] MEDS: Enoxaparin 40 MG/0.4 ML SYR SC (05:45)
[2022-03-05 06:54] LABS: Anion Gap 8.9 mmol/L (3-11); BUN 19 mg/dL (7-18); CO2 23.1 mmol/L (21.0-32.0); CREATININE 0.9 mg/dL (0.70-1.30); Calcium 8.2 mg/dL (8.5-10.1); Chloride 105 mmol/L (98-107); Glucose 86 mg/dL (74-106); Potassium 4.4 mmol/L (3.5-5.1); Sodium 137 mmol/L (136-145)
[2022-03-05] MEDS: Cholecalciferol (Vitamin D3) 1,000 UNIT TAB 2000 UNITS PO (09:14)
[2022-03-05] MEDS: Vitamins B Comp w/C TAB 1 TAB PO (09:14)
[2022-03-05] MEDS: DULoxetine 20 MG CAP PO (09:14)
[2022-03-05] MEDS: Psyllium PKT 1 EACH PO ×2 (09:14→20:20)
[2022-03-05] MEDS: Potassium Chloride Liquid 20 MEQ PKT PO ×2 (09:15→15:48)
[2022-03-05] MEDS: Oseltamivir 30 MG CAP PO ×2 (09:15→20:20)
[2022-03-05] MEDS: Carvedilol 6.25 MG TAB PO ×2 (09:15→20:20)
[2022-03-05] MEDS: Donepezil 5 MG TAB 10 MG PO (09:15)
--- NOTE | 2022-03-05 12:31 | PDOC.CMPRO ---
- If Service Date Differs Date of service: 03/05/22 Time of Service: 12:31 Care Management Progress Note S/O: Brett continues to be monitored, on Covid precautions, therefore CM was unable to meet with him in person. CM talked to Hospice today, who stated that the family decided to revoke hospice. CM talked to Jill, his , who stated that they would like him to go to rehab to increase mobility with transfers. He will be evaluated by PT today. CM will send a referral to [facility], which is the family's first choice for placement. CM will continue to follow. A: Brett is an 81 year old male admitted to [facility] on 03/03/22 with fever, hypotension, COVID. P: Brett is currently being monitored in the ICU, but has been transferred to M/S level of care. His family would like him to go to SNF for short term rehab. He will either transition to roasterman care vs return home with hospice support after rehab. He will follow up with his PCP and discharge plan of care, and will likely transport via EMS. CM will continue to follow.
--- NOTE | 2022-03-05 14:17 | IN_ITS ---
Date of service: 03/05/22 Time of Service: 14:17 PT Notes Visit Reasons: fever,Hypotension,Covid Physical Therapy Inpatient Initial Evaluation Date: 03/05/2022 Referring Doctor: Noemy Anguiano MD PT Orders: PT CONSULT: Non-urgent Precautions: Fall. Standard. Activity as tolerated. Patient Profile/Admitting Diagnosis: Frank is an 81-year-old male patient previously on hospice with past medical history significant for Alzheimer's disease and hydrocephalus with ventriculoperitoneal shunt in situ who presented to the ED on 03/03/2022 due to fever, loose stools, and generalized weakness. Patient is diagnosed with COVID- 19 infection, influenza, hypotension, dehydration, and diarrhea with referral to physical therapy to address functional mobility impairments. PMHX: All Active Problems?(Updated 03/03/22 @ 03:44 by Torrey Goldberg MD) Fever (Acute) Influenza (Acute) COVID-19 (Acute) Irritability (Acute) Encounter for hospice care discussion (Acute) Encounter for hospice care (Acute) Decreased activities of daily living (ADL) (Acute) At high risk for skin breakdown (Acute) Restless leg (Acute) Need for home health care (Acute) History of quadruple bypass (Acute) Cough (Acute) Alzheimer disease (Chronic) Advanced directives, counseling/discussion (Acute) Poor balance (Acute) Weakness generalized (Acute) At high risk for falls (Acute) Hypothyroidism (Acute) Cough (Acute) Shortness of breath (Acute) Lesion of lung (Acute) Medical History? Bronchitis COPD (chronic obstructive pulmonary disease) HTN (hypertension) Hx of hyperlipidemia Hydrocephalus with shunt Palliative care patient Thyroid disease Surgical History? History of fusion of cervical spine Hx of CABG Social History/Home Situation: Unable to extract information from patient due to dementia. Per Nurse Belia who spoke with daughter earlier this morning, patient has been practically bed- ridden and has had physical help from male family members with transfers to and from bed. Please refer to care management's note for more details. Equipment Owned/DME: Unknown at this time Subjective: Agreeable to trying out sitting at edge of bed and to moving. Complains of fatigue and was needing a couple of guys to help him move off of bed. Per Nurse Belia, she had a hard time moving patient this morning alone. She called daughter and spoke with her about patient's baseline mobility level and found out that patient has not walked for quite a while and that male family leroyebrosaile christine been helping out with transfers for safety. Objective: General Observation: Supine in bed, fiddle cloth and cloth play/squeeze ball on his lap. Opened his eyes when his name was mentioned. Telemetry in place. Fo telma catheter in place. Mental Status: Ooriented only to self. Able to follow single-step commands. Needed frequent redirection to task. Needed tactile and visual cueing for taks initiation and completion. Pain: Denies Vital Signs: WNL as closely monitored by nursing staff ROM: Right Upper Extremity: Grossly WFL Left Upper Extremity: Grossly WFL Right Lower Extremity: Grossly WFL Left Lower Extremity: Grossly WFL Strength: Right Upper Extremity: Grossly 3/5 Left Upper Extremity: Grossly 3/5 Right Lower Extremity: Grossly 3/5 Left Lower Extremity: Grossly 3/5 Bed Mobility/Transfers: Rolling moderate assist Supine to sit moderate assist Sit to supine moderate assist Sit to stand unable with one assist Gait: Unable Balance: Static Sitting: Fair Dynamic Sitting: Fair Static Standing: Unable Dynamic Standing: Unable Special Tests: Mobility Limitations Standardized Measure [facility]-PAC 6 clicks Basic Mobility Inpatient Short Form: Raw Score: 8 CMS Score: 87% deficit Informed Consent/Education: Conversation with CLYDE Costa regarding possible placement in a SNF with a potential goal for LTC has been made. Physical therapy evaluation is needed to determine admitting mobility level and facilitate goal setting with family members/POA. ASSESSMENT: Plan of care will address benefit of PT services to address impairments in transfers for this admission. Will work on assessing safest device for transfers including sit to stand machine/STEDY lift or assist of 2 using front- wheeled walker. Patient will require use of mechanical lift at this time for all transfers. Patient presents with clinical signs and symptoms consistent with current/admitting diagnoses that have resulted to mobility limitations, gait instability, generalized weakness, and overall ADL decline as demonstrated by the following impairment level findings: 1. Decreased strength to B UE AD/LE in trunkmajor muscle groups 2. Impaired sitting/standing balance 3. Impaired activity tolerance 4. Impaired safety awareness Impairments are contributing to the following functional limitations: 1. Decline in bed mobility skills 2. Decline in transfer skills 3. Increased risk for skin breakdown Patient is assessed as a [id number] highcomplexity based on the following: History: 81-year-old male with past medical history as indicated above Examination: Demonstrable impairment in strength, balance, and mobility level with underlying impairments and functional limitations as exhibited above as well as deficit score of 87% utilizing the [facility] Mobility Inpatient Short Form Presentation: Evolving Decision Makin high complexity Goals: Goals X1 week 1. Supine-Sit minimal assist 2. Sit-Supine minimal assist 3. Sit-Stand minimal assist of 2 using STEDY lift 4. Stand-Sit minimal assist of 2 using STEDY lift 5. Bed-Chair minimal assist of 2 using STEDY lift 6. Chair-Bed minimal assist of 2 using STEDY lift 7. Fair static and dynamic sitting balance/tolerance 8. Fair static and dynamic sitting balance/tolerance Plan of Care/Treatment Plan: 1/day, 7 days/week x 1 week. Plan of care has been reviewed with the THREAD SPINNER providing the service under Physical Therapy direction. Initiate Physical Therapy intervention for pain management as needed, strengthening, bed mobility, transfers, gait, stairs, balance training, and use of assistive device. DISCHARGE RECOMMENDATIONS: [] Home with no services [] [] Home with services [specify] [] Home with outpatient PT [] [X] SNF for continued rehabilitation. Patient will benefit from assisted facility placement for continued skilled physical therapy services in order to progress mobility level, strength, and balance in preparation for a safe discharge to home. [X] Injection Molding Machine Setter Care based on progress towards goals [] SNF versus LTC based on ability to participate and progress [] TREATMENT CODE/TIME: 12896 x 37 minutes beginning at 14:17 PM. Thank you for the opportunity to participate in the care of this patient. Sowmya Smith PT, DPT, CLT [facility] [place], [place]
--- NOTE | 2022-03-05 17:27 | PGE_ITS ---
Date of Service Date of service: 03/05/22 Time of Service: 17:27 Assessment and Plan Assessment and plan (1) COVID-19: Status: Acute Assessment and plan: Despite being fully vaccinated and having had single booster the developed COVID-19. Patient was treated with the monoclonal antibody Bebtelovimab. He is not having any hypoxemia or dyspnea. (2) Diarrhea due to COVID-19: Status: Acute Assessment and plan: Stools are now soft and more formed. Occult blood negative. Appetite remains poor. I have added Megace to stimulate his appetite. (3) Influenza: Status: Acute Assessment and plan: Patient currently on Oseltamivir but has no cough or dyspnea. But he is sounding somewhat congested. I have added DuoNeb treatments and ordered I.S. and acapella. (4) Dehydration: Status: Acute Assessment and plan: Azotemia has improved although his potassium level is low and have put him on oral replacement. Patient is also receiving nutritional supplemental shakes. (5) Alzheimer disease: Status: Chronic Assessment and plan: Palliative care has been consulted but consult is pending. Family no longer can care for him at home and wishes to seek SNF placement and therefore family has revoked his hospice status. (6) Anemia: Status: Chronic Assessment and plan: Stable (7) Atelectasis of both lungs: Status: Acute Assessment and plan: I would order an incentive spirometry however I do not think that his dementia will allow him to comprehend how to properly use this. 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 At this point I will discontinue his Rocephin as he has no evidence of bacterial infection (9) Discharge planning issues: Status: Acute Assessment and plan: Per my discussion with comp field case manager yesterday family is seeking nursing home home placement as they can no longer care for him at home. Patient has been e nrolled in hospice at home. Subjective Subjective Interval history since last seen: Patient is more alert today. Still confused from his dementia. He has no complaints. He spoke w/ his daughter and via video conference and he wants to go home, however, his family can no longer care for him at home. His family rescinded his hospice status. CM has put in referrals to area SNF. Exam Narrative Exam Narrative: Elderly male sitting up in bed being fed by nursing. He has no respiratory discomfort Lungs: rhonchous bilaterally Heart: RRR Abdomen: soft, nontender, normal bowel sounds Extremities: no edema Objective Last Vital Signs Temp 36.2 C L 03/05/22 08:40 Pulse 69 03/05/22 15:54 Resp 16 03/05/22 15:54 BP 123/59 L 03/05/22 15:54 Pulse Ox 93 03/05/22 15:54 Laboratory Results - last 24 hr 03/04/22 03/05/22 06:15 05:50 Sodium 137 Potassium 4.4 D Chloride 105 Carbon Dioxide 23.1 Anion Gap 8.9 BUN 19 H Creatinine 0.9 Estimated GFR/1.73 m2 >= 60.00 Glucose 86 Calcium 8.2 L Stool Campylobacter PCR Negative Stool Salmonella PCR Negative Stool Shigella PCR Negative Shiga Toxin (PCR) Negative
--- NOTE | 2022-03-05 18:37 | NUR.NOTE ---
Nursing Note: Patient had video chat with his and daughter from out of town this afternoon.
[2022-03-05] MEDS: Albuterol/Ipratropium 3 ML UPD VIAL UPD (18:46)
[2022-03-05] MEDS: traZODone 50 MG TAB PO (21:19)
[2022-03-05] MEDS: Pramipexole 0.25 MG TAB 0.375 MG PO (21:19)
[2022-03-05] MEDS: Melatonin 3 MG TAB 6 MG PO (21:20)
[2022-03-06] VITALS (19 sets, daily range): BP systolic 92–110; BP diastolic 45–59; PULSE 59–89; RESP 2–23; TEMP 36.4–36.6; O2SAT 93–99
[2022-03-06] MEDS: LORazepam 0.5 MG TAB PO (00:52)
[2022-03-06] MEDS: ACETAMINOPHEN 1,000 MG/100 ML BTL 400 MG IVPB (00:52)
[2022-03-06] MEDS: Normal Saline Flush 10 ML SYR IVP ×2 (00:53→10:04)
[2022-03-06] MEDS: Levothyroxine 75 MCG TAB PO (05:50)
[2022-03-06] MEDS: Enoxaparin 40 MG/0.4 ML SYR SC (05:50)
[2022-03-06 07:27] LABS: BUN 14 mg/dL (7-18); CREATININE 0.9 mg/dL (0.70-1.30); Calcium 8.5 mg/dL (8.5-10.1); Chloride 105 mmol/L (98-107); Glucose 104 mg/dL (74-106); Potassium 3.9 mmol/L (3.5-5.1); Sodium 137 mmol/L (136-145)
[2022-03-06] MEDS: Albuterol/Ipratropium 3 ML UPD VIAL UPD ×4 (08:10→20:44)
[2022-03-06] MEDS: Vitamins B Comp w/C TAB 1 TAB PO (10:00)
[2022-03-06] MEDS: Cholecalciferol (Vitamin D3) 1,000 UNIT TAB 2000 UNITS PO (10:00)
[2022-03-06] MEDS: DULoxetine 20 MG CAP PO (10:01)
[2022-03-06] MEDS: Oseltamivir 30 MG CAP PO ×2 (10:02→21:05)
[2022-03-06] MEDS: Donepezil 5 MG TAB 10 MG PO (10:03)
[2022-03-06] MEDS: Carvedilol 6.25 MG TAB PO ×2 (10:04→21:04)
[2022-03-06] MEDS: Psyllium PKT 1 EACH PO ×2 (10:04→21:05)
--- NOTE | 2022-03-06 10:56 | CMPROGNOTE_ITS ---
- If Service Date Differs Date of service: 03/06/22 Time of Service: 10:56 Care Management Progress Note S/O: Brett remains on Covid precautions, therefore CM did not meet with him in person. Per report, his only symptom of Covid was diarrhea, and he is no longer symptomatic, therefore he will likely be ready for discharge to a facility Thursday or Thursday, depending on the facility's policy regarding Covid patients. CM received documents from Hospice stating that his family has revoked hospice. They are seeking placement at this time. CM sent a referral to [facility], which is the family's first choice. CM will continue to follow. A: Brett is an 81 year old male admitted to [facility] on 03/03/22 with fever, hypotension, COVID. P: Brett is currently being monitored in the ICU, but has been transferred to M/S level of care. His family would like him to go to SNF for short term rehab. He will either transition to long wall mining machine tender care vs return home with hospice support after rehab. He will follow up with his PCP and discharge plan of care, and will likely transport via EMS. CM will continue to follow.
--- NOTE | 2022-03-06 11:42 | PGE_ITS ---
Date of Service Date of service: 03/06/22 Time of Service: 11:42 Assessment and Plan Assessment and plan (1) COVID-19: Status: Acute Assessment and plan: Asymptomatic. Status post monoclonal antibody treatment with Bebtelovimab. His only symptoms on admission were diarrhea. (2) Influenza: Status: Acute Assessment and plan: Patient currently on Oseltamivir but has no cough or dyspnea. Yesterday sounded congested but sounds better today. Currently on duo nebs qid along with I-S and Acapella. (3) Alzheimer disease: Status: Chronic Assessment and plan: Palliative care has been consulted but consult is pending. Family no longer can care for him at home and wishes to seek SNF placement and therefore family has revoked his hospice status. (4) Anemia: Status: Chronic Assessment and plan: Stable Stool negative for occult blood. We will check serum iron, folate, B12, (5) Atelectasis of both lungs: Status: Acute Assessment and plan: DuoNeb treatments plus pulmonary toiletry as tolerated with I-S and Acapella. (6) Discharge planning issues: Status: Acute Assessment and plan: Per my discussion with case management assistant yesterday family is seeking senior care home placement as they can no longer care for him at home. Patient has been enrolled in hospice at home. Subjective Subjective Interval history since last seen: Check an uneventful night last night. No shortness of breath no hypoxemia. He has been sleeping throughout the morning. Exam Narrative Exam Narrative: Patient was asleep when I went into the room. I gently shook him but he was sound asleep therefore I did not disturb him. Lungs are clear to auscultation Heart regular rate and rhythm Abdomen soft nondistended nontender Urena catheter is in place draining some dark concentrated urine. There is a bit of mucus in the urine. I will repeat his urinalysis. Objective Last Vital Signs Temp 36.6 C 03/06/22 06:25 Pulse 63 03/06/22 11:15 Resp 22 03/06/22 08:10 BP 103/49 L 03/06/22 08:01 Pulse Ox 94 03/06/22 11:15 Laboratory Results - last 24 hr 03/06/22 05:38 Sodium 137 Potassium 3.9 Chloride 105 Carbon Dioxide 25.0 Anion Gap 7.0 BUN 14 Creatinine 0.9 Estimated GFR/1.73 m2 >= 60.00 Glucose 104 Calcium 8.5
[2022-03-06 12:46] LABS: Lab Add On Test DONE
--- NOTE | 2022-03-06 13:27 | PT.INNT ---
Date of service: 03/06/22 Time of Service: 13:28 PT Notes Visit Reasons: fever,Hypotension,Covid 03/06/2022 Patient unable to participate due to significant drowsiness. Will attempt to resume PT services tomorrow.
[2022-03-06 13:28] LABS: Iron 39 ug/dL (65-175)
[2022-03-06 13:46] LABS: Ferritin 478 ng/mL (26-388); Folate 18.1 ng/mL (8.6-20.0); Vitamin B12 780 pg/mL (193-986)
[2022-03-06 15:46] LABS: Bilirubin Negative (Negative); Blood Large (Negative); Clarity Clear (Clear); Glucose Negative (Negative); Ketones Negative (Negative); Leukocyte Esterase Small (Negative); Nitrite Negative (Negative); Specific Gravity >= 1.030 (1.005-1.025); Urobilinogen 0.2 EU/dL (Up TO 0.2); pH 5.5 (5-8)
[2022-03-06 16:10] LABS: Bacteria Few HPF (Negative); C & S Indicated? Yes; Casts Negative LPF (Negative); Crystals Negative HPF (Negative); Epithelial Cells Negative HPF (Negative); Mucus Negative (Negative); RBC >50 HPF (0-2); WBC >50 HPF (0-5)
[2022-03-06] MEDS: Melatonin 3 MG TAB 6 MG PO (21:05)
[2022-03-06] MEDS: Pramipexole 0.25 MG TAB 0.375 MG PO (21:05)
[2022-03-06] MEDS: traZODone 50 MG TAB PO (21:05)
[2022-03-07] VITALS (15 sets, daily range): BP systolic 110–129; BP diastolic 52–108; PULSE 56–96; RESP 1–18; TEMP 36.2–36.3; O2SAT 94–100
[2022-03-07] MEDS: Levothyroxine 75 MCG TAB PO (05:51)
[2022-03-07] MEDS: Enoxaparin 40 MG/0.4 ML SYR SC (05:51)
[2022-03-07] MEDS: Cholecalciferol (Vitamin D3) 1,000 UNIT TAB 2000 UNITS PO (08:40)
[2022-03-07] MEDS: Albuterol/Ipratropium 3 ML UPD VIAL UPD ×4 (08:40→20:23)
[2022-03-07] MEDS: Oseltamivir 30 MG CAP PO ×2 (08:40→20:23)
[2022-03-07] MEDS: Vitamins B Comp w/C TAB 1 TAB PO (08:40)
[2022-03-07] MEDS: Carvedilol 6.25 MG TAB PO ×2 (08:41→20:23)
[2022-03-07] MEDS: Psyllium PKT 1 EACH PO ×2 (08:41→20:22)
[2022-03-07] MEDS: Donepezil 5 MG TAB 10 MG PO (08:41)
[2022-03-07] MEDS: DULoxetine 20 MG CAP PO (08:41)
--- NOTE | 2022-03-07 08:57 | PDOC.CMPRO ---
- If Service Date Differs Date of service: 03/07/22 Time of Service: 08:57 Care Management Progress Note S/O: Brett remains on Covid precautions in the ICU. CM received a bed offer for him at [facility], which will be available on Thursday. CM called and left a message for his , informing her of the bed offer. [facility] was her first choice, therefore CM accepted the bed offer. He will transfer on Thursday, likely via EMS. CM will continue to follow. A: Brett is an 81 year old male admitted to [facility] on 03/03/22 with fever, hypotension, COVID. P: Brett is currently being monitored in the ICU, but has been transferred to M/S level of care. His family would like him to go to SNF for short term rehab. He will either transition to skilled nursing care vs return home with hospice support after rehab. He will follow up with his PCP and discharge plan of care, and will likely transport via EMS. CM will continue to follow.
--- NOTE | 2022-03-07 11:50 | W.PM.PROGNOT ---
Date of Service Date of service: 03/07/22 Time of Service: 11:50 Assessment and Plan Assessment and plan (1) COVID-19: Status: Acute Assessment and plan: Asymptomatic. Status post monoclonal antibody treatment with Bebtelovimab. His only symptoms on admission were diarrhea. (2) Influenza: Status: Acute Assessment and plan: Patient currently on Oseltamivir but has no cough or dyspnea. Still a few scattered rhonchi. Remains afebrile therefore have not started any antibiotics. I have encouraged nursing to work with him with the use of his I-S and Acapella. They were saying because of his dementia he could not perform this however he was able to correctly uses I-S and acapella with encouragement for me. (3) Alzheimer disease: Status: Chronic Assessment and plan: Palliative care has been consulted but consult is pending. Family no longer can care for him at home and wishes to seek SNF placement and therefore family has revoked his hospice status. (4) Anemia: Status: Chronic Assessment and plan: Stable Stool negative for occult blood. normal B12 and folate levels. however low iron level (ferritin is mildly elevated but probably d/t COVID-19). I have ordered Venofer infusions to treat his anemia. (5) Atelectasis of both lungs: Status: Acute Assessment and plan: DuoNeb treatments plus pulmonary toiletry as tolerated with I-S and Acapella. (6) Discharge planning issues: Status: Acute Assessment and plan: Per my discussion with family independence case manager yesterday family is seeking nursing home home placement as they can no longer care for him at home. Patient has been dis-enrolled in hospice at home. financial institution branch manager reports today that the patient has been accepted to [facility] for Thursday. I will get follow up COVID-19 on Thursday. Subjective Subjective Interval history since last seen: Brett is very alert and responsive to my recommendations. I got him to use his incentive spirometer and his Acapella device. He is only oriented to himself. He is able to state his family members names but he could not tell me that he was in the hospital or the name of the hospital nor is he oriented to date. Brett is very willing to cooperate with anything we asked him to do to help mobilize him. He reportedly has been bedridden since December with no clear reason why he is bedridden. I would like PT to start work with the patient. Patient was able to correctly uses I-S and Acapella for me. Lungs with scattered rhonchi Heart regular rate and rhythm Abdomen soft nondistended Extremities without peripheral edema Exam Narrative Exam Narrative: Patient was asleep when I went into the room. I gently shook him but he was sound asleep therefore I did not disturb him. Lungs are clear to auscultation Heart regular rate and rhythm Abdomen soft nondistended nontender Urena catheter is in place draining some dark concentrated urine. There is a bit of mucus in the urine. I will repeat his urinalysis. Objective Last Vital Signs Temp 36.3 C L 03/07/22 04:00 Pulse 78 03/06/22 15:10 Resp 20 03/06/22 15:10 BP 110/52 L 03/07/22 04:00 Pulse Ox 96 03/07/22 04:00 Laboratory Results - last 24 hr 03/06/22 03/06/22 03/06/22 05:38 05:38 15:10 Iron 39 L Ferritin 478 H Lactate Dehydrogenase Cancelled Vitamin B12 780 Folate 18.1 Urine Color Yellow Urine Clarity Clear Urine pH 5.5 Ur Specific [place] >= 1.030 H Urine Protein 100 H Urine Ketones Negative Urine Blood Large H Urine Nitrite Negative Urine Bilirubin Negative Urine Urobilinogen 0.2 Ur Leukocyte Esterase Small H Urine RBC >50 H Urine WBC >50 H Ur Epithelial Cells Negative Urine Crystals Negative Urine Bacteria Few Urine Casts Negative Urine Mucus Negative Ur Culture Indicated? Yes Urine Glucose Negative Add-On Test Request 03/06/22 Unknown Iron Ferritin Lactate Dehydrogenase Vitamin B12 Folate Urine Color Urine Clarity Urine pH Ur Specific [place] Urine Protein Urine Ketones Urine Blood Urine Nitrite Urine Bilirubin Urine Urobilinogen Ur Leukocyte Esterase Urine RBC Urine WBC Ur Epithelial Cells Urine Crystals Urine Bacteria Urine Casts Urine Mucus Ur Culture Indicated? Urine Glucose Add-On Test Request DONE
[2022-03-07] MEDS: Normal Saline Flush 10 ML SYR IVP (13:43)
--- NOTE | 2022-03-07 14:28 | PTTR_ITS ---
Date of service: 03/07/22 Time of Service: 14:28 PT Notes Visit Reasons: fever,Hypotension,Covid Physical Therapy Inpatient Treatment Note Date: 03/07/2022 Precautions: Fall. Standard. Activity as tolerated. Subjective: Pleasant and cooperative. Objective: General Observation: Supine in bed,? fiddle cloth and cloth play/squeeze ball on his lap.? Opened his eyes when his name was mentioned.? Telemetry in place.? Urena catheter in place. Mental Status: Oriented only to self.? Able to follow single-step commands.? Needed frequent redirection to task.? Needed tactile and visual cueing for task initiation and completion.? Pain: Denies Bed Mobility/Transfers: Rolling moderate assist Supine to sit moderate assist Sit to supine moderate assist Sit to stand assist of 2 with STEDY lift Stand to sit assist of 2 with STEDY lift Bed to chair assist of 2 with STEDY lift THERA EX: UE B shoulder flexion/extension and horizontal abduction/adduction x 10, LAQs x 10, seated hip flexion x 10, seated hip abduction x 10. Gait: Unable Balance: Static Sitting: Fair Dynamic Sitting: Fair Static Standing: Unable Dynamic Standing: Unable ASSESSMENT: Able to follow instructions for safe transfer using STEDY lift with assist of PT and Nurse Winn. Follows instructions for seated level exercises for UE and LE. Will continue services to attempt to safely progress transfer level as tolerated. Will need work on increasing trunk stability, static standing balance and tolerance for safe use of STEDY lift. PLAN: Continue with B UE/LE/trunk strengthengin while progressing transfer level. DISCHARGE RECOMMENDATIONS: [] ? Home with no services [] [] ? Home with services [specify] [] ? Home with outpatient PT [] [X] ? SNF for continued rehabilitation.? Patient will benefit from senior care facility placement for continued skilled physical therapy services in order to progress mobility level, strength, and balance in preparation for a safe discharge to home. [X] ? Jail Care based on progress towards goals [] ? SNF versus LTC based on ability to participate and progress [] TREATMENT CODE/TIME: 34691 x 20 minutes, 93341 x 11 minutes beginning at 14:28 PM.
[2022-03-07] MEDS: IRON SUCROSE COMPLEX 300 MG in Normal Saline 250 ML 176.667 MG IVPB (14:34)
[2022-03-07] MEDS: LORazepam 0.5 MG TAB PO (17:53)
[2022-03-07] MEDS: Lidocaine 2% Jelly 6 ML SYR ×2 (19:41→20:26)
[2022-03-07] MEDS: Pramipexole 0.25 MG TAB 0.375 MG PO (20:23)
[2022-03-07] MEDS: Melatonin 3 MG TAB 6 MG PO (20:24)
[2022-03-07] MEDS: traZODone 50 MG TAB PO (20:24)
[2022-03-08] VITALS (8 sets, daily range): BP systolic 106–140; BP diastolic 51–64; PULSE 66–95; RESP 1–18; TEMP 36.1–36.7; O2SAT 94–97
[2022-03-08] MEDS: Famotidine 20 MG TAB PO (00:50)
[2022-03-08] MEDS: Tamsulosin 0.4 MG CAPCR 0.8 MG PO ×2 (00:51→08:47)
[2022-03-08] MEDS: Levothyroxine 75 MCG TAB PO (05:58)
--- NOTE | 2022-03-08 07:09 | NUR.NOTE ---
MD calls RN about blood from penis and that jolley placement was unsuccessful by overnight nurse Toni Aviles because of bleeding. This nurse is not comfortable with further attempt to place jolley given history. MD orders RN to have nursing surpervisor attempt placement and if unsuccessful MD will consider having patient be seen by surgery.Nursing Note:
--- NOTE | 2022-03-08 07:14 | NUR.NOTE ---
Stefan Muñoz RN reports soaked brief full of blood. MD is made aware of same.Nursing Note:
--- NOTE | 2022-03-08 07:16 | NUR.NOTE ---
Nursing Note: Dr. Barkley did see Pt. overnight for concerns of bleeding post straight cath. Pt. did bleed large amounts in depends, and pressure dressing had to be applied. Overnight Pt. was bladder scanned multiple times all under 100 cc. At 0530 Pt. did have 300 cc in bladder so I informed Dr. Barkley, to which I did not receive a call back before shift change. I attempted to insert a 16 fr coude catheter, I only got the catheter in around 2 inches and Pt. started bleeding large amounts again. I did not feel comfortable inserting the catheter any further due to the large amounts of blood. I did call Dr. ventura to let him know, and Dr. ahn returned the call to talk with day shift about a plan.
--- NOTE | 2022-03-08 07:37 | NUR.NOTE ---
Nursing Highway Landscape Architect speaks to Dr. Torres about her unwillingness to attempt jolley placement and suggests that a urologist or surgeon attempt jolley placement. MD informs Highway Landscape Architect to get an ED nurse to place jolley. Highway Landscape Architect informs CONTROL OPERATOR, that she is uncomfortable with asking nursing to place the jolley given extend of bleeding overnight which is a full brief of blood and continuing bleeding. MD to be on unit to assess momentarily.Nursing Note:
--- NOTE | 2022-03-08 07:39 | NUR.NOTE ---
orders labs on patient. ammonia refrigeration technician presently drawing said labs on patient.Nursing Note:
--- NOTE | 2022-03-08 07:45 | NUR.NOTE ---
RN speaks to MD about Corrections Nurse's position that nursing at this point given history of bleeding should not attempt jolley placement. informs RN that Corrections Nurse will have an ED nurse attempt jolley placement but that at the moment the ED staff is engaged with patients.Nursing Note:
[2022-03-08 07:57] LABS: Abs Immature Grans 0.03 10^3/uL (0.0-0.06); Absolute Basophil Count 0.02 10^3/uL (0.0-0.2); Absolute Eosinophil Count 0.17 10^3/uL (0.0-0.7); Absolute Monocyte Count 0.47 10^3/uL (0.1-0.8); Absolute Neutrophil Count 2.97 10^3/uL (1.2-6.7); Basophils % 0.4; Eosinophils % 3.1; Immature Grans % 0.5; MCH 29.9 pg (27.0-33.0); MCHC 32.4 % (32.0-36.0); MCV 92 fL (80-95); MPV 9.4 fL (8.0-11.0); Monocytes % 8.6; Neutrophils % 54.4; Platelet Count 246 10^3/uL (130-400); RBC 3.68 10^6/uL (4.36-5.78); RDW 13.2 % (11.8-14.1); RDW-SD 44.4 fL; WBC 5.46 10^3/uL (4.4-10.8)
[2022-03-08 08:05] LABS: Anion Gap 8.6 mmol/L (3-11); BUN 14 mg/dL (7-18); CO2 25.4 mmol/L (21.0-32.0); CREATININE 0.9 mg/dL (0.70-1.30); Calcium 8.6 mg/dL (8.5-10.1); Chloride 105 mmol/L (98-107); Glucose 92 mg/dL (74-106); Potassium 3.8 mmol/L (3.5-5.1); Sodium 139 mmol/L (136-145)
[2022-03-08 08:09] LABS: Prothrombin Time 10.5 sec (9.3-11.0)
--- NOTE | 2022-03-08 08:27 | NUR.NOTE ---
Med/Surg nurse with Dr. Gil's assistance was successful in placing couday jolley and off loaded 600ml of urine.Nursing Note:
[2022-03-08] MEDS: Carvedilol 6.25 MG TAB PO ×2 (08:45→18:37)
[2022-03-08] MEDS: Cholecalciferol (Vitamin D3) 1,000 UNIT TAB 2000 UNITS PO (08:45)
[2022-03-08] MEDS: Psyllium PKT 1 EACH PO (08:46)
[2022-03-08] MEDS: DULoxetine 20 MG CAP PO (08:46)
[2022-03-08] MEDS: Donepezil 5 MG TAB 10 MG PO (08:46)
[2022-03-08] MEDS: Vitamins B Comp w/C TAB 1 TAB PO (08:47)
[2022-03-08] MEDS: IRON SUCROSE COMPLEX 300 MG in Normal Saline 250 ML 176.667 MG IVPB (10:21)
[2022-03-08] MEDS: Albuterol/Ipratropium 3 ML UPD VIAL UPD ×3 (10:43→18:38)
--- NOTE | 2022-03-08 11:34 | W.PM.PROGNOT ---
Date of Service Date of service: 03/08/22 Time of Service: 11:35 Assessment and Plan Assessment and plan (1) Urinary retention: Status: Acute Assessment and plan: jolley catheter reinserted (actually, 3 way catheter placed due to hematuria). Will attempt to retain this in place until urology consult on Thursday. (2) Hematuria: Status: Acute Assessment and plan: Suspect urethral injury as the cause. With a urinary catheter in place, the bleeding appears to be tamponaded. Keep catheter in place. Consult urology. Hold chemical DVT ppx. (3) COVID-19: Status: Acute Assessment and plan: Appears asymptomatic other than diarrhea on admission, now resolved. S/p MAB. Not requiring oxygen. No plan for repeat testing as clinically improved. Continue bronchodilators, IS, acapella, encourage the patient to spend time out of bed. (4) Influenza: Status: Acute Assessment and plan: Continue tamiflu, pulmonary toilet. (5) Alzheimer disease: Status: Chronic Assessment and plan: Await palliative care consult. Hospice revoked prior to admission to the hospital. Will need placement (?readmission to hospice on discharge). (6) Anemia: Status: Chronic Assessment and plan: Stable, despite hematuria. Receiving IV iron this morning. Continue to monitor H/H. (7) Atelectasis of both lungs: Status: Acute Assessment and plan: Encourage OOB to chair and pulmonary toilet. (8) Discharge planning issues: Status: Acute Assessment and plan: No longer on home hospice. DNR/DNI. Family is interested in SNF placement. Palliative care consulted. (9) DVT prophylaxis: Status: Acute Assessment and plan: Holding chemical DVT ppx in light of hematuria. Will provide TEDS. Subjective Subjective Interval history since last seen: Mr Valladares developed hematuria after his straight cath yesterday evening (for urinary retention of approximately 600 cc). When his bladder scan was >300 cc this am, a jolley catheter insertion was attempted by was unsuccessful. This morning, a 3 way catheter was placed with >600 cc out, at first bloody, then clear urine once the jolley catheter was advanced, suggesting a urethral injury rather than bladder or upper urinary tract origin of hematuria. The patient is tagging on the catheter. He is A&Ox1 and requires frequent reorientation. Denies dizziness, chest pain, shortness of breath, nausea, abdominal pain. Not requiring O2. Exam Narrative Exam Narrative: General: Elderly male who is A&Ox1 in a chair, on room air, no dyspnea/tachypnea/cyanosis, restless - taking off his blankets and pulling on his catheter HEENT: EOMI, MMM Heart: RRR, no m/r/g Lungs: faint rhonchi in B lower bases Abdomen: soft, nontender, nondistended Extremities: trace edema in BLEs, symmetric Objective Last Vital Signs Temp 36.2 C L 03/07/22 09:30 Pulse 65 03/07/22 20:36 Resp 18 03/07/22 16:55 BP 129/81 03/07/22 20:36 Pulse Ox 94 03/07/22 20:35 Laboratory Results - last 24 hr 03/08/22 03/08/22 03/08/22 07:30 07:30 07:30 WBC 5.46 RBC 3.68 L Hgb 11.0 L Hct 34.0 L MCV 92 MCH 29.9 MCHC 32.4 RDW 13.2 Plt Count 246 MPV 9.4 Immature Gran % 0.5 Neutrophils % 54.4 Lymphocytes % 33.0 Monocytes % 8.6 Eosinophils % 3.1 Basophils % 0.4 Nucleated RBC % 0.0 Absolute Neutrophils 2.97 Absolute Lymphocytes 1.80 Absolute Monocytes 0.47 Absolute Eosinophils 0.17 Absolute Basophils 0.02 PT 10.5 INR 1.0 Sodium 139 Potassium 3.8 Chloride 105 Carbon Dioxide 25.4 Anion Gap 8.6 BUN 14 Creatinine 0.9 Estimated GFR/1.73 m2 >= 60.00 Glucose 92 Calcium 8.6 Magnesium 2.0
--- NOTE | 2022-03-08 12:25 | NUR.NOTE ---
New brief applied to patient.Nursing Note:
--- NOTE | 2022-03-08 12:45 | PT.INTREAT ---
Date of service: 03/08/22 Time of Service: 10:10 PT Notes Visit Reasons: fever,Hypotension,Covid Inpatient Physical Therapy Treatment Note [facility] Date: 03/08/2022 PRECAUTIONS: Non-Ambulatory , dementia SUBJECTIVE: Brett is pleasant and agreeable to PT. He expresses frustration with his recent Urena catheter placement, only briefly. OBJECTIVE: PAIN: No c/o pain BED MOBILITY/TRANSFERS Supine-sit: Mod A Sit-stand: Min A with STEDY Stand-sit: Min A with STEDY Bed-Chair: STEDY GAIT: Unable THEREX: Patient was instructed in [id number] activity while positioned in STEDY. He was able to complete exercise x8 with significant encouragement. TOILETING: Patient was incontinent of stool, requiring Max A. ASSESSMENT: Patient tolerated session without complaint. He requires encouragement for task completion, possibly due to dementia. Patient continues to require Mod A for bed mobility at this time. PLAN: Continue with transfer training and global strengthening for imporved mobility. TREATMENT CODE/TIME: 24 minutes; 73106 x2 (10:10)
[2022-03-08] MEDS: LORazepam 0.5 MG TAB PO (13:09)
--- NOTE | 2022-03-08 13:21 | NUR.NOTE ---
Patient turned onto right flank and boosted in bed. Patient given 0.5mg of Ativan for anxiety. Patient was slowly trying to get out of bed.Nursing Note:
[2022-03-09] VITALS (9 sets, daily range): BP systolic 106–125; BP diastolic 57–68; PULSE 66–88; RESP 8–18; TEMP 36.2–36.8; O2SAT 92–97
[2022-03-09] MEDS: Levothyroxine 75 MCG TAB PO (06:46)
[2022-03-09 07:02] LABS: Abs Immature Grans 0.06 10^3/uL (0.0-0.06); Absolute Basophil Count 0.02 10^3/uL (0.0-0.2); Absolute Lymphocyte Count 1.64 10^3/uL (1.2-3.4); Absolute Monocyte Count 0.54 10^3/uL (0.1-0.8); Absolute Neutrophil Count 3.68 10^3/uL (1.2-6.7); Basophils % 0.3; Eosinophils % 1.7; HCT 34.6 % (40.0-50.0); HGB 11.2 g/dL (13.5-17.5); Lymphocytes % 27.2; MCH 30.7 pg (27.0-33.0); MCHC 32.4 % (32.0-36.0); MCV 95 fL (80-95); MPV 9.7 fL (8.0-11.0); Monocytes % 8.9; Neutrophils % 60.9; Platelet Count 236 10^3/uL (130-400); RBC 3.65 10^6/uL (4.36-5.78); RDW 13.2 % (11.8-14.1); RDW-SD 45.4 fL; WBC 6.04 10^3/uL (4.4-10.8)
[2022-03-09] MEDS: Carvedilol 6.25 MG TAB PO ×2 (07:26→20:32)
[2022-03-09] MEDS: Cholecalciferol (Vitamin D3) 1,000 UNIT TAB 2000 UNITS PO (07:26)
[2022-03-09] MEDS: DULoxetine 20 MG CAP PO (07:27)
[2022-03-09] MEDS: Donepezil 5 MG TAB 10 MG PO (07:27)
[2022-03-09] MEDS: Vitamins B Comp w/C TAB 1 TAB PO (07:28)
[2022-03-09] MEDS: Tamsulosin 0.4 MG CAPCR 0.8 MG PO (07:28)
[2022-03-09] MEDS: Psyllium PKT 1 EACH PO (07:28)
[2022-03-09 07:36] LABS: ALT 21 U/L (16-63); AST 20 U/L (15-37); Albumin 2.7 g/dL (3.4-5.0); Alkaline Phosphatase 65 U/L (46-116); Anion Gap 6.9 mmol/L (3-11); BUN 14 mg/dL (7-18); Bilirubin, Direct 0.1 mg/dL (0.0-0.2); Bilirubin, Total 0.3 mg/dL (0.2-1.0); CO2 27.1 mmol/L (21.0-32.0); CREATININE 0.6 mg/dL (0.70-1.30); Calcium 8.7 mg/dL (8.5-10.1); Chloride 105 mmol/L (98-107); Glucose 84 mg/dL (74-106); Magnesium 2.2 mg/dL (1.8-2.4); Potassium 3.9 mmol/L (3.5-5.1); Sodium 139 mmol/L (136-145); Total Protein 6.6 g/dL (6.4-8.2)
--- NOTE | 2022-03-09 07:48 | NUR.NOTE ---
The issue with the leaking jolley apparently is that one of the triple lumen on the 3 way jolley was not capped. RN caps same and problem is resolved.Nursing Note:
[2022-03-09 08:06] LABS: Procalcitonin < 0.1 ng/mL
[2022-03-09] MEDS: Albuterol/Ipratropium 3 ML UPD VIAL UPD ×4 (08:34→20:32)
[2022-03-09 10:02] LABS: Source Nasal/Nares
--- NOTE | 2022-03-09 10:02 | NUR.NOTE ---
Patient is cleaned of a significant amount of soft brown stool. New brief is applied. New bed pad applied. Patient is fed by RN. Patient eats 100% of his breakfast which was oatmeal, orange juice, bottle of ensure, wheat bread and grapes. RN offers to assist patient out of bed to chair, but patient refuses since he is quite tired.Nursing Note:
--- NOTE | 2022-03-09 10:10 | NUR.NOTE ---
PVR Covid swab taken and sent to lab.Nursing Note:
--- NOTE | 2022-03-09 10:11 | PGE_ITS ---
Date of Service Date of service: 03/09/22 Time of Service: 10:11 Assessment and Plan Assessment and plan (1) Urinary retention: Status: Acute Assessment and plan: Urinary catheter replaced yesterday after a failed VT. Await urology c/s. (2) Hematuria: Status: Resolved Assessment and plan: Suspect urethral injury as the cause. No bleeding since reinsertion of urinary catheter. Await urology c/s tomorrow. Will continue to hold chemical DVT ppx. (3) COVID-19: Status: Acute Assessment and plan: Appears asymptomatic other than diarrhea on admission, now resolved. S/p MAB. Not requiring oxygen. We did obtain a repeat PCR this am - awaiting results - if the patient is off of precautions we can get to him faster if he is pulling on his catheter. Continue bronchodilators, IS, acapella, encourage the patient to spend time out of bed. (4) Influenza: Status: Resolved Assessment and plan: finished tamiflu, Encourage pulmonary toilet. (5) Alzheimer disease: Status: Chronic Assessment and plan: Await palliative care consult. Hospice revoked prior to admission to the hospital. Will need placement (?readmission to hospice on discharge). (6) Anemia: Status: Chronic Assessment and plan: Stable, despite hematuria. S/ venofer x 3. Continue to monitor H/H. (7) Atelectasis of both lungs: Status: Acute Assessment and plan: Encourage OOB to chair and pulmonary toilet. (8) Discharge planning issues: Status: Acute Assessment and plan: No longer on home hospice. DNR/DNI. Family is interested in SNF placement. Palliative care consulted. (9) DVT prophylaxis: Status: Acute Assessment and plan: Holding chemical DVT ppx in light of hematuria. TEDS. Subjective Subjective Interval history since last seen: Mr Valladares had a good night. He remains on room air. He did need ativan during the day yesterday but not during the night. His catheter was leaking through an evidently open port of the 3 way catheter. The patient was asleep and comfortable this morning - I observed him through the glass door of the ICU and did not examine him in person due to his dx of COVID- 19 and medical stability. Exam Narrative Exam Narrative: General: Elderly male is seen through the glass door of the ICU; asleep, comfortable. On RA. HEENT: eyes closed, seemingly MMM Heart: not auscultated. Lungs: nonlabored breathing on RA Abdomen: covered in blankets Extremities: covered in blankets. Objective Last Vital Signs Temp 36.2 C L 03/09/22 07:54 Pulse 66 03/09/22 08:34 Resp 18 03/09/22 08:34 BP 124/67 03/09/22 07:54 Pulse Ox 95 03/09/22 07:54 Laboratory Results - last 24 hr 03/09/22 03/09/22 03/09/22 05:38 05:38 05:38 WBC 6.04 RBC 3.65 L Hgb 11.2 L Hct 34.6 L MCV 95 MCH 30.7 MCHC 32.4 RDW 13.2 Plt Count 236 MPV 9.7 Immature Gran % 1.0 Neutrophils % 60.9 Lymphocytes % 27.2 Monocytes % 8.9 Eosinophils % 1.7 Basophils % 0.3 Nucleated RBC % 0.0 Absolute Neutrophils 3.68 Absolute Lymphocytes 1.64 Absolute Monocytes 0.54 Absolute Eosinophils 0.10 Absolute Basophils 0.02 Sodium 139 Potassium 3.9 Chloride 105 Carbon Dioxide 27.1 Anion Gap 6.9 BUN 14 Creatinine 0.6 L Estimated GFR/1.73 m2 >= 60.00 Glucose 84 Calcium 8.7 Magnesium 2.2 Total Bilirubin 0.3 Conjugated Bilirubin 0.1 AST 20 ALT 21 Alkaline Phosphatase 65 C-Reactive Protein 1.30 H Total Protein 6.6 Albumin 2.7 L Procalcitonin < 0.1 COVID-19 Source 03/09/22 10:00 WBC RBC Hgb Hct MCV MCH MCHC RDW Plt Count MPV Immature Gran % Neutrophils % Lymphocytes % Monocytes % Eosinophils % Basophils % Nucleated RBC % Absolute Neutrophils Absolute Lymphocytes Absolute Monocytes Absolute Eosinophils Absolute Basophils Sodium Potassium Chloride Carbon Dioxide Anion Gap BUN Creatinine Estimated GFR/1.73 m2 Glucose Calcium Magnesium Total Bilirubin Conjugated Bilirubin AST ALT Alkaline Phosphatase C-Reactive Protein Total Protein Albumin Procalcitonin COVID-19 Source Nasal/Nares
[2022-03-09] MEDS: IRON SUCROSE COMPLEX 200 MG in Normal Saline 100 ML 400 MG IVPB (10:13)
--- NOTE | 2022-03-09 10:24 | PT.INNT ---
Date of service: 03/09/22 Time of Service: 10:24 PT Notes Visit Reasons: fever,Hypotension,Covid 03/09/2022 Attempt to see patient for PT x2. Hold. Attempt to resume PT services tomorrow morning.
[2022-03-09 10:44] LABS: COVID-19 PCR POSITIVE (Negative)
--- NOTE | 2022-03-09 10:44 | NUR.NOTE ---
Patient tolerates knee high TEDS well. Patient says that TEDS are comfortable.Nursing Note:
[2022-03-09] MEDS: Pramipexole 0.25 MG TAB 0.375 MG PO (21:31)
[2022-03-09] MEDS: Melatonin 3 MG TAB 6 MG PO (21:32)
[2022-03-09] MEDS: Famotidine 20 MG TAB PO (21:32)
[2022-03-09] MEDS: traZODone 50 MG TAB PO (21:32)
[2022-03-10] VITALS (14 sets, daily range): BP systolic 100–142; BP diastolic 59–76; PULSE 88–105; RESP 8; TEMP 36.5; O2SAT 94–97
[2022-03-10] MEDS: Levothyroxine 75 MCG TAB PO (06:20)
[2022-03-10 06:42] LABS: Abs Immature Grans 0.08 10^3/uL (0.0-0.06); Absolute Basophil Count 0.02 10^3/uL (0.0-0.2); Absolute Eosinophil Count 0.05 10^3/uL (0.0-0.7); Absolute Lymphocyte Count 1.29 10^3/uL (1.2-3.4); Absolute Monocyte Count 0.57 10^3/uL (0.1-0.8); Absolute Neutrophil Count 6.47 10^3/uL (1.2-6.7); Basophils % 0.2; Eosinophils % 0.6; HCT 33.4 % (40.0-50.0); HGB 10.9 g/dL (13.5-17.5); Immature Grans % 0.9; Lymphocytes % 15.2; MCHC 32.6 % (32.0-36.0); MCV 92 fL (80-95); MPV 9.5 fL (8.0-11.0); Monocytes % 6.7; Neutrophils % 76.4; Platelet Count 261 10^3/uL (130-400); RBC 3.63 10^6/uL (4.36-5.78); RDW 13.3 % (11.8-14.1); RDW-SD 45.3 fL; WBC 8.48 10^3/uL (4.4-10.8)
[2022-03-10 06:51] LABS: BUN 13 mg/dL (7-18); Calcium 8.5 mg/dL (8.5-10.1); Chloride 106 mmol/L (98-107); Glucose 125 mg/dL (74-106); Magnesium 2.1 mg/dL (1.8-2.4); Potassium 3.4 mmol/L (3.5-5.1); Sodium 139 mmol/L (136-145)
[2022-03-10] MEDS: Psyllium PKT 1 EACH PO ×2 (08:28→21:05)
[2022-03-10] MEDS: Potassium Chloride 20 MEQ TABCR 40 MEQ PO (08:28)
[2022-03-10] MEDS: Tamsulosin 0.4 MG CAPCR 0.8 MG PO (08:28)
[2022-03-10] MEDS: Vitamins B Comp w/C TAB 1 TAB PO (08:29)
[2022-03-10] MEDS: Albuterol/Ipratropium 3 ML UPD VIAL UPD ×4 (08:29→21:05)
[2022-03-10] MEDS: Carvedilol 6.25 MG TAB PO ×2 (08:29→21:05)
[2022-03-10] MEDS: Cholecalciferol (Vitamin D3) 1,000 UNIT TAB 2000 UNITS PO (08:29)
[2022-03-10] MEDS: Donepezil 5 MG TAB 10 MG PO (08:29)
[2022-03-10] MEDS: DULoxetine 20 MG CAP PO (08:30)
--- NOTE | 2022-03-10 11:41 | W.PM.PROGNOT ---
Date of Service Date of service: 03/10/22 Time of Service: 11:41 Assessment and Plan Assessment and plan (1) Urinary retention: Status: Acute Assessment and plan: Urinary catheter replaced over the weekend after a failed VT. However, today, the patient's had verbalized to care management that she does not want Mr Valladares to have the jolley catheter and, therefore, it was discontinued. I have also discontinued the urology consult. Continue flomax. (2) Hematuria: Status: Resolved Assessment and plan: Suspect urethral injury as the cause. No bleeding since reinsertion of urinary catheter or upon its removal today. Continue to hold chemical DVT ppx. (3) COVID-19: Status: Acute Assessment and plan: Appears asymptomatic other than diarrhea on admission, now resolved. S/p MAB. Not requiring oxygen. Repeat PCR positive- continue precautions. (4) Influenza: Status: Resolved Assessment and plan: finished tamiflu, Encourage pulmonary toilet. (5) Alzheimer disease: Status: Chronic Assessment and plan: Await palliative care consult. Hospice revoked prior to admission to the hospital. [facility] ([facility] for [facility]). Overall direction of care is comfort. (6) Anemia: Status: Chronic Assessment and plan: Stable, despite hematuria. S/ venofer x 3. Will not recheck labs tomorrow. (7) Atelectasis of both lungs: Status: Acute Assessment and plan: Encourage OOB to chair and pulmonary toilet. (8) Discharge planning issues: Status: Acute Assessment and plan: No longer on home hospice. DNR/DNI. Care direction - comfort. Family is interested in SNF placement - expect discharge to [facility] tomorrow. Palliative care consulted. (9) DVT prophylaxis: Status: Acute Assessment and plan: Holding chemical DVT ppx in light of hematuria. TEDS. Subjective Subjective Interval history since last seen: Mr Valladares states that both his legs hurt (he points to the area of hamstrings). Earlier today he was asking the nursing why he can't walk (evidently, he had not walked at home for several months and was considered bed ridden). The patient denies dizziness, chest pain, shortness of breath, nausea. He cannot go to [facility] today due to a staffing shortage there, but is expected to be admitted there tomorrow. The patient's does not want him to have a urinary catheter and wants his care to be directed toward comfort, generally. I ordered the urinary catheter to be removed. Exam Narrative Exam Narrative: General: Elderly male, sitting up in a chair, A&Ox1, appears comfortable, Cooperative, on RA without dyspnea/tachypnea/cyanosis HEENT: EOMI, MMM Heart: RRR, no m/r/g Lungs: CTAB Abdomen: soft, nontender, nondistended Extremities: Wearing TEDs; no edema BLEs Objective Last Vital Signs Temp 36.5 C 03/10/22 06:59 Pulse 105 H 03/10/22 08:57 Resp 16 03/09/22 16:40 BP 142/67 H 03/10/22 08:57 Pulse Ox 95 03/10/22 08:57 Laboratory Results - last 24 hr 03/10/22 03/10/22 06:27 06:27 WBC 8.48 RBC 3.63 L Hgb 10.9 L Hct 33.4 L MCV 92 MCH 30.0 MCHC 32.6 RDW 13.3 Plt Count 261 MPV 9.5 Immature Gran % 0.9 Neutrophils % 76.4 Lymphocytes % 15.2 Monocytes % 6.7 Eosinophils % 0.6 Basophils % 0.2 Nucleated RBC % 0.0 Absolute Neutrophils 6.47 Absolute Lymphocytes 1.29 Absolute Monocytes 0.57 Absolute Eosinophils 0.05 Absolute Basophils 0.02 Sodium 139 Potassium 3.4 L Chloride 106 Carbon Dioxide 23.0 Anion Gap 10.0 BUN 13 Creatinine 1.0 Estimated GFR/1.73 m2 >= 60.00 Glucose 125 H Calcium 8.5 Magnesium 2.1
--- NOTE | 2022-03-10 12:00 | CMPROGNOTE_ITS ---
- If Service Date Differs Date of service: 03/10/22 Time of Service: 12:00 Care Management Progress Note S/O: Brett continues to be monitored under precautions for Covid, therefore CM will not visit with him in person. CM did view him through the glass door, and he was sitting up in a chair. CM spoke to his this morning regarding the use of a catheter for urinary retention, and Jill stated that she would prefer that he does not have a catheter, as it is very uncomfortable for him, and she wants him to be comfortable. Brett is scheduled to go to [facility] tomorrow morning, as they could not accept him today due to staffing. He will transport via EMS, coordinated by CM. CM will continue to follow. A: Brett is an 81 year old male admitted to [facility] on 03/03/22 with fever, hypotension, COVID. P: Brett is currently being monitored in the ICU, but has been transferred to M/S level of care. His family would like him to go to SNF for short term rehab. He will either transition to senior living care vs return home with hospice support after rehab. He will follow up with his PCP and discharge plan of care, and will likely transport via EMS. CM will continue to follow.
--- NOTE | 2022-03-10 15:20 | PT.INTREAT ---
Date of service: 03/10/22 Time of Service: 12:58 PT Notes Visit Reasons: fever,Hypotension,Covid Inpatient Physical Therapy Treatment Note [facility] Date: 03/10/2022 PRECAUTIONS: Non-Ambulatory, dementia SUBJECTIVE: Brett is pleasant and agreeable to PT. OBJECTIVE: PAIN: No c/o pain BED MOBILITY/TRANSFERS: Primary nurse, Tatum, request that patient remain in bed and does not attempt transfers at this time. THEREX: Patient was instructed in an UE and LE strengthening program, completed in a long-sitting position to include: ankle pumps, SAQ, hip abduction, shoulder flexion, shoulder horizontal abduction, and forward reaching. Most exercises completed with assist as well as verbal and visual cueing. ASSESSMENT: Patient tolerated session without complaint. He required assist with most exercises due to global weakness. PLAN: Continue with transfer training and global strengthening for improved mobility. TREATMENT CODE/TIME: 19 minutes; [id number] (12:58)
[2022-03-10] MEDS: Pramipexole 0.25 MG TAB 0.375 MG PO (21:05)
[2022-03-10] MEDS: Melatonin 3 MG TAB 6 MG PO (21:05)
[2022-03-10] MEDS: traZODone 50 MG TAB PO (21:05)
[2022-03-10] MEDS: Famotidine 20 MG TAB PO (21:05)
[2022-03-11] MEDS: Levothyroxine 75 MCG TAB PO (06:31)
[2022-03-11 06:51] VITALS: BP 110/59; TEMP 36.3
--- NOTE | 2022-03-11 08:50 | W.PM.DS.N ---
Date of service: 03/11/22 Time of Service: 08:50 DS: Diagnosis Discharge Diagnosis (1) Urinary retention: Status: Acute (2) Hematuria: Status: Resolved (3) COVID-19: Status: Acute (4) Influenza: Status: Resolved (5) Alzheimer disease: Status: Chronic (6) Anemia: Status: Chronic (7) Atelectasis of both lungs: Status: Acute Discharge Plan Disposition Patient Disposition: SNF (LEVEL 1) [facility] Condition: Stable Discharge Details Reason For Visit: fever,Hypotension,Covid Admit Date/Time: 03/03/22 03:56 Admit Provider: Torrey Goldberg Attending Provider: Torrey Goldberg Primary Care Provider: Susi Bunch Hospital Course Hospital Course: Mr Valladares is an 81 year old male with PMHx of Alzheimer's dementia, lung lesion, hypothyroidism, ambulatory dysfunction, who was bed ridden for several months while on home hospice, who was taken off of hospice and admitted to [facility] hospitalist service on 03/03/22 for COVID-19 concurrently with influenza A, having presented with diarrhea, fever, and weakness. The family was not able to take care of the patient and requested that, upon his discharge from the hospital, he be placed in a longterm facility. He did not require oxygen. He was hypotensive, possibly due to scopolamine patches or dehydration. He was treated with monoclonal antibody infusion, tamiflu, and gentle IVF. He received 3 infusions of venofer for anemia. He was found to be retaining urine and failed a voiding trial after jolley catheterization. When he was being straight cathed, he developed hematuria likely due to urethral injury; this resolved with a urinary catheter was reinserted, tamponading the bleed. The patient did pull on the catheter repeatedly and was difficult to keep from traumatizing himself further. The patient's had expressed to us that she did not want him to have a catheter and, as his goals of care seem to now be mostly comfort oriented, his urinary catheter was d/c'ed. The patient has been able to urinate since and is to be straight-catheterized only if uncomfortable. He is medically stable for discharge to [facility]. Care for patient as well as completion of his discharge summary on day of discharge took 45 minutes. Home Meds and New Rx's Prescriptions: New megestrol 400 mg/10 mL (40 mg/mL) Suspension 800 mg PO DAILY Qty: 0 0RF trazodone 50 mg Tablet 50 mg PO HS Qty: 0 0RF melatonin 3 mg Tablet 6 mg PO HS Qty: 0 0RF famotidine 20 mg Tablet 20 mg PO HS Qty: 0 0RF tamsulosin 0.4 mg Capsule 0.8 mg PO DAILY Qty: 0 0RF Metamucil Sugar-Free (aspart) 3.4 gram/5.8 gram Powder 1 ea PO BID Qty: 0 0RF Continued vitamin B complex [B Complex-Vitamin B12] Tablet 1 tab PO DAILY 0RF Label Comments: Dr Nadeen Delaney just started pt on palliative care and has a more up to date list. No list currently with or patient to confirm meds cholecalciferol (vitamin D3) 25 mcg (1,000 unit) capsule 25 mcg PO DAILY 0RF Label Comments: Dr Nadeen Delaney just started pt on palliative care and has a more up to date list. No list currently with or patient to confirm meds albuterol sulfate [Ventolin HFA] 90 mcg/actuation HFA aerosol inhaler 2 puff inhalation Q6H PRN0RF Label Comments: Dr Nadeen Delaney just started pt on palliative care and has a more up to date list. No list currently with or patient to confirm meds loperamide [Imodium A-D] 2 mg tablet 2 mg PO Q6H PRN (Reason: loose stool) Qty: 30 3RF lorazepam 0.5 mg tablet 0.5 mg PO BID PRN (Reason: anxiety) Qty: 14 0RF Rx Instructions: for agitation, irritability and anxiety donepezil 10 mg tablet 10 mg PO DAILY Qty: 90 0RF pramipexole 0.375 mg tablet extended release 24 hr 0.375 mg PO QHS Qty: 30 0RF levothyroxine 75 mcg tablet 75 mcg PO DAILY Qty: 90 0RF Label Comments: Dr Nadeen Delaney just started pt on palliative care and has a more up to date list. No list currently with or patient to confirm meds carvedilol [Coreg] 6.25 mg tablet 6.25 mg PO BID Qty: 180 3RF morphine concentrate 100 mg/5 mL (20 mg/mL) solution See Rx Instructions PO Q1H PRN MDD 240 mg Qty: 30 0RF Label Comments: Dr Nadeen Delaney just started pt on palliative care and has a more up to date list. No list currently with or patient to confirm meds Rx Instructions: 0.25-1.0 ml po q 1 hr prn pain or dyspnea HOSPICE patient lorazepam 1 mg tablet 1 mg PO Q4H PRN PRN (Reason: anxiety, agitation, nausea or dyspnea) Qty: 7 2RF Rx Instructions: start with 1/2 tab if ineffective, give whole tab HOSPICE patient duloxetine [Cymbalta] 20 mg capsule,delayed release(DR/EC) 20 mg PO DAILY 0RF Discontinued scopolamine base 1 mg over 3 days Patch 3 Day 1 patch TRANSDERMAL Q3D 0RF aspirin 81 mg Tablet,Delayed Release (Dr/Ec) 81 mg PO QAM 0RF Discharge Instructions Referrals: Susi Bunch NP [Primary Care Provider] - Nadeen Mclean NP [NURSE PRACTITIONER] - Activity:: Activity as Tolerated Equipment/Supplies:: No Equipment Needed Diet:: As Tolerated Discharge Orders Discharge Orders: Discharge Order (Routine); Ordered 03/11/22 Ordered By: Argenis Torres DS: Summary Time Spent with Patient providing and/or coordinating discharge services: Greater than 30 minutes Status at Discharge Functional status at discharge: wheelchair bound Overall status at discharge: patient is back to baseline Mental Status: other (A&Ox1, cooperative) Speech and Movement: speech and movement normal Mood: congruent mood and other (A&Ox1, cooperative) Affect: normal affect Exam Narrative Exam Narrative: Patient evaluated through door/window of ICU given his persistent COVID+status and medical stability. He was awake, sitting in a chair, eating breakfast, not in dstress. On RA. Nonlabored breathing. No edema. Psych Mental Status: other (A&Ox1, cooperative) Speech and Movement: speech and movement normal Mood: congruent mood and other (A&Ox1, cooperative) Affect: normal affect DS: Data Vitals/I&O Vitals and I&O: Vital Signs Temperature 36.3 C L 03/11/22 06:51 Temperature Source Temporal Artery Scan 03/11/22 06:51 Pulse 93 H 03/10/22 16:01 Pulse Rhythm Regular 03/11/22 02:23 Pulse 79 03/06/22 15:10 Respiratory Rate 16 03/09/22 16:40 Respiratory Effort 03/11/22 02:23 Respiratory Depth Normal 03/11/22 02:23 Respiratory Pattern Normal 03/11/22 02:23 Blood Pressure 110/59 L 03/11/22 06:51 Blood Pressure Mean 83 03/10/22 16:01 Blood Pressure Position Right Lateral 03/04/22 10:00 Pulse Oximetry 95 03/10/22 14:01 Oxygen Delivery Method Room Air 03/11/22 06:51 Oxygen Flow Rate 0 03/11/22 06:51 Pain Level 0 03/09/22 07:54 Comment 03/08/22 20:00 Intake & Output 03/10/22 03/10/22 03/11/22 11:59 23:59 11:59 Intake Total 450 / 950 500 / 950 378 / 378 Output Total 175 / 425 250 / 425 Balance 275 / 525 250 / 525 378 / 378 Intake: Oral 450 / 950 500 / 950 378 / 378 Output: Urine 175 / 425 250 / 425 Other: Urine Color Straw Yellow Straw Urine Appearance Clear Clear Clear Stool Size Small Large Stool Characteristics Soft Liquid Liquid Brown Data Completed and Pending Completed studies during hospitalization [Text1]: US abdomen 03/03/22: Cholelithiasis.? Mild gallbladder distention without definite evidence of acute cholecystitis.. CXR 03/03/22: No acute pulmonary findings. PFSH All Active Problems (Updated 03/09/22 @ 10:19 by Argenis Torres MD) DVT prophylaxis (Acute) Discharge planning issues (Acute) Urinary retention (Acute) Discharge planning issues (Acute) Anemia (Chronic) Atelectasis of both lungs (Acute) Dehydration (Acute) Diarrhea due to COVID-19 (Acute) Fever (Acute) COVID-19 (Acute) Irritability (Acute) Encounter for hospice care discussion (Acute) Encounter for hospice care (Acute) Decreased activities of daily living (ADL) (Acute) At high risk for skin breakdown (Acute) Restless leg (Acute) Need for home health care (Acute) History of quadruple bypass (Acute) Cough (Acute) Alzheimer disease (Chronic) Advanced directives, counseling/discussion (Acute) Poor balance (Acute) Weakness generalized (Acute) At high risk for falls (Acute) Hypothyroidism (Acute) Cough (Acute) Shortness of breath (Acute) Lesion of lung (Acute) Medical History Bronchitis COPD (chronic obstructive pulmonary disease) HTN (hypertension) Hx of hyperlipidemia Hydrocephalus with shunt Palliative care patient Thyroid disease Surgical History 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 Daughter No problems noted. Daughter No problems noted. Maternal Grandfather , 64 Heart disease Paternal Grandfather , 64 Heart disease Maternal Grandmother , 97 No problems noted. Paternal Grandmother , 66 No problems noted. Social History Smoking/Tobacco Use Status: Former Tobacco Use tobacco type: cigarettes and pipe Quit Date: 09/02/82 Tobacco: How many years used: 31 Second Hand Exposure: No Smoking risk assessment performed?: Yes Alcohol Intake: current Alcohol Intake frequency: holidays/special occasions only Alcohol type: wine and hard liquor Drug use: Never Household members: spouse and family Housing: apartment Communication Needs: None Do you need help understanding health information?: Rarely Pets and animals: Yes Pets and animals: dog(s) Sexually active: No Do you think of yourself as: straight/heterosexual Current gender identity: male What is your relationship status?: living with partner How often do you talk on the phone with friends or family?: never How often do you get together with friends or relatives?: twice per week How often do you attend cheondoism or shinto services?: 1-3 times per year Do you belong to any clubs or organized social groups?: no Panel score (0-1 are the most socially isolated patients): 1 What type of physical activity do you participate in: none, wheelchair-bound and decreased ROM & activity Frequency: does not exercise Deyanira/Mandaeism: Jainism Special deyanira needs: Yes (last rights) Seatbelt use: always Helmet use: Yes Helmet use: always Drive intox or ride w/intox bus driver supervisor: No Do you feel safe at home: Yes Do you feel safe in your relationship?: Yes
[2022-03-11] MEDS: Tamsulosin 0.4 MG CAPCR 0.8 MG PO (10:09)
[2022-03-11] MEDS: DULoxetine 20 MG CAP PO (10:10)
[2022-03-11] MEDS: Vitamins B Comp w/C TAB 1 TAB PO (10:10)
[2022-03-11] MEDS: Carvedilol 6.25 MG TAB PO (10:10)
[2022-03-11] MEDS: Donepezil 5 MG TAB 10 MG PO (10:11)
[2022-03-11] MEDS: Cholecalciferol (Vitamin D3) 1,000 UNIT TAB 2000 UNITS PO (10:15)
[2022-03-11 10:18] VITALS: RESP 2
[2022-03-11] MEDS: Psyllium PKT 1 EACH PO (10:18)
[2022-03-11] MEDS: Albuterol/Ipratropium 3 ML UPD VIAL UPD (10:18)
[2022-03-11 10:34] VITALS: BP 136/92; PULSE 81
--- NOTE | 2022-03-11 12:34 | CMDISCH_ITS ---
- If Service Date Differs Date of service: 03/11/22 Time of Service: 12:34 LACE Index Scoring Tool - Questions: Length of Stay (in days): 7 - 13 Acuity (Admit via E.D.?): Yes Comorbidities: Dementia E.D. Visits: 3 - Answers: Total Score: 14 Risk of Readmission: High Risk Care Management Discharge Reason for Hospitalization: fever, hypotension, COVID Discharge Plan: Brett went to [facility] today for short term rehab. His was agreeable to this plan. He transported via [employer], due to his dementia. He will follow up with Palliative, his PCP, and his discharge plan of care. Patient/Family Education Needs: Review discharge instructions and limitations, discussion of self care needs including ask me three and goals of care. Services Needed at Discharge: Halfway Facility ([facility]), Transportation (EMS, [facility])
== END 2022-03-11 11:09 | disposition skilled nursing facility (03) | DRG 391 ==
LOC: ER 05:24 → ICU 05:29
PROVIDERS: Internal Medicine; Admitting Provider General Practice; Emergency Provider Emergency Medicine; Visit Provider General Practice
DX: A08.39 Other viral enteritis (principal); U07.1 COVID-19; J98.11 Atelectasis; N39.0 Urinary tract infection, site not specified; G91.9 Hydrocephalus, unspecified; E87.2 Acidosis; S37.30XA Unspecified injury of urethra, initial encounter; T83.9XXA Unspecified complication of genitourinary prosthetic device, implant and graft, initial encounter; J11.1 Influenza due to unidentified influenza virus with other respiratory manifestations; G30.9 Alzheimer's disease, unspecified; F02.80 Dementia in other diseases classified elsewhere, unspecified severity, without behavioral disturbance, psychotic disturbance, mood disturbance, and anxiety; Z95.1 Presence of aortocoronary bypass graft; Z98.2 Presence of cerebrospinal fluid drainage device; Z79.82 Long term (current) use of aspirin; G25.81 Restless legs syndrome; E03.9 Hypothyroidism, unspecified; J44.9 Chronic obstructive pulmonary disease, unspecified; R53.1 Weakness; I10 Essential (primary) hypertension; E78.5 Hyperlipidemia, unspecified; Z98.1 Arthrodesis status; Z87.891 Personal history of nicotine dependence; Z66 Do not resuscitate; I95.9 Hypotension, unspecified; E86.0 Dehydration; R33.9 Retention of urine, unspecified; K80.20 Calculus of gallbladder without cholecystitis without obstruction; D64.9 Anemia, unspecified; R31.0 Gross hematuria; R26.2 Difficulty in walking, not elsewhere classified
CPT/HCPCS: 36415; 80048; 80053; 80076; 84145; 87040; 87493; 87505; 87635; 87637; 96361; 96365; 97110; 97163; 97530; 99285; J1650; Q0222; 71045; 76705; 81003; 81015; 82272; 82607; 82728; 82746; 83540; 83605; 83615; 83735; 85025; 85610; 86140; 87086; 94640; 99223; 99231; 99232; 99233; 99239; 99291; 99292; J0131; J0696; J1756; J7620; J9999

== ENCOUNTER → 2022-03-10 08:22 | Outpatient (BNVA) | payer MEDICARE, OTHER, SELFPAY ==
--- NOTE | 2022-03-11 18:00 | PT.INDS ---
Date of service: 03/11/22 PT Notes Visit Reasons: INPT Consult Physical Therapy Inpatient Discharge Summary Date: 03/05/2022 Dates of service: 03/05/2022 through 03/10/2022 This is a clinical summary of care provided for the duration of dates listed above. No charge was made in the completion of this documentation. Referring Doctor: Noemy Anguiano MD PT Orders: PT CONSULT: Non-urgent Precautions: Fall. Standard. Activity as tolerated. Patient Profile/Admitting Diagnosis: Frank is an 81-year-old male patient previously on hospice with past medical history significant for Alzheimer's disease and hydrocephalus with ventriculoperitoneal shunt in situ who presented to the ED on 03/03/2022 due to fever, loose stools, and generalized weakness.? Patient is diagnosed with COVID-19 infection, influenza, hypotension, dehydration, and diarrhea with referral to physical therapy to address functional mobility impairments. PMHX: All Active Problems?(Updated 03/03/22 @ 03:44 by Torrey Goldberg MD) Fever (Acute) Influenza (Acute) COVID-19 (Acute) Irritability (Acute) Encounter for hospice care discussion (Acute) Encounter for hospice care (Acute) Decreased activities of daily living (ADL) (Acute) At high risk for skin breakdown (Acute) Restless leg (Acute) Need for home health care (Acute) History of quadruple bypass (Acute) Cough (Acute) Alzheimer disease (Chronic) Advanced directives, counseling/discussion (Acute) Poor balance (Acute) Weakness generalized (Acute) At high risk for falls (Acute) Hypothyroidism (Acute) Cough (Acute) Shortness of breath (Acute) Lesion of lung (Acute) Medical History? Bronchitis COPD (chronic obstructive pulmonary disease) HTN (hypertension) Hx of hyperlipidemia Hydrocephalus with shunt Palliative care patient Thyroid disease Surgical History? History of fusion of cervical spine Hx of CABG Social History/Home Situation: Unable to extract information from patient due to dementia.? Per Nurse Belia who spoke with daughter earlier this morning,? patient has been practically bed-ridden and has had physical help from male family members with transfers to and from bed.? Please refer to care management's note for more details. Equipment Owned/DME: Unknown at this time Subjective: NT. See most recent COMMISSARY PRODUCTION SUPERVISOR notes. Objective: General Observation: NT. See most recent COMMISSARY PRODUCTION SUPERVISOR notes. Mental Status: NT. See most recent COMMISSARY PRODUCTION SUPERVISOR notes. Pain: Denies Vital Signs: NT. See most recent COMMISSARY PRODUCTION SUPERVISOR notes. ROM: Right Upper Extremity: ? Grossly WFL Left Upper Extremity:? Grossly WFL Right Lower Extremity: Grossly WFL Left Lower Extremity: Grossly WFL Strength: Right Upper Extremity: Grossly 3/5 Left Upper Extremity: Grossly 3/5 Right Lower Extremity: Grossly 3/5 Left Lower Extremity: Grossly 3/5 Bed Mobility/Transfers: Rolling moderate assist Supine to sit moderate assist Sit to supine moderate assist Sit to stand STEDY lift Gait: Unable Balance: Static Sitting: Fair Dynamic Sitting: Fair Static Standing: Unable Dynamic Standing: Unable ASSESSMENT: No functional mobility improvement achieved during this episode of care due to cognitive status. Patient will require mechanncal lift for all transfers. Will require SNF placement to continue to assess potential for gains in transfer task performance. Patient presents with clinical signs and symptoms consistent with current/admitting diagnoses that have resulted to mobility limitations, gait instability, generalized weakness, and overall ADL decline as demonstrated by the following impairment level findings: 1.? Decreased strength to B UE AD/LE in trunkmajor muscle groups 2.? Impaired sitting/standing balance 3.? Impaired activity tolerance 4.? Impaired safety awareness Impairments are contributing to the following functional limitations: 1.? Decline in bed mobility skills 2.? Decline in transfer skills 3.? Increased risk for skin breakdown Goals: Goals X1 week 1. Supine-Sit minimal assist NOT MET 2. Sit-Supine minimal assist NOT MET 3. Sit-Stand minimal assist of 2 using STEDY lift NOT MET 4. Stand-Sit minimal assist of 2 using STEDY lift NOT MET 5. Bed-Chair minimal assist of 2 using STEDY lift NOT MET 6. Chair-Bed minimal assist of 2 using STEDY lift NOT MET 7. Fair static and dynamic sitting balance/tolerance NOT MET 8.? Fair static and dynamic sitting balance/tolerance NOT MET DISCHARGE RECOMMENDATIONS: [] ? Home with no services [] [] ? Home with services [specify] [] ? Home with outpatient PT [] [X] ? SNF for continued rehabilitation.? Patient will benefit from intermediate facility placement for continued skilled physical therapy services in order to progress mobility level, strength, and balance in preparation for a safe discharge to home. [X] ? Group Home Care based on progress towards goals [] ? SNF versus LTC based on ability to participate and progress [] TREATMENT CODE/TIME: NC Thank you for the opportunity to participate in the care of this patient. Sowmya Smith PT, DPT, CLT [facility] [place], [place]
== END ==
PROVIDERS: Visit Provider Urology
DX: R69 Illness, unspecified (principal)

== ENCOUNTER → 2022-03-26 12:58 | Outpatient (REF) | payer SELFPAY ==
--- NOTE | 2022-03-26 15:00 | DI.RAD_ITS ---
Exam(s) XR CHEST 2V PA LATERAL EXAM: XR CHEST 2V PA LATERAL CLINICAL HISTORY: AUDIBLE WHEEZING, RALES BILATERALLY THROUGHOUT TECHNIQUE: 2D digital imaging was performed of the chest. Images were obtained. PA and lateral v iews were obtained. COMPARISON: CR XR CHEST 2V PA LATERAL from 09/24/2021 FINDINGS: MEDIASTINUM: Normal. HEART: Normal. PULMONARY VASCULATURE: Normal. LUNGS: There is airspace infiltrate in the left lung base. PLEURAL SPACE: There is a small pleural effusion seen posteriorly. BONE:Within normal limits for the patient's age. Sternal wires are in place. OTHER FINDINGS:There is a large amount of free air beneath the hemidiaphragm raising the question of a ruptured viscus. IMPRESSION: 1. Pneumo peritoneum. 2. Left basilar infiltrate and small pleural effusion. 3. Findings were discussed with the Sonny, machine made shoe unit worker at [facility] on the date of the exami [facility]. DATA REPOSITORY: RADIATION DOSE DELIVERED:
== END ==
LOC: DI 12:58
PROVIDERS: Visit Provider Nurse Practitioner Family
DX: J90 Pleural effusion, not elsewhere classified (principal); R91.8 Other nonspecific abnormal finding of lung field
CPT/HCPCS: 71046

== ENCOUNTER 2022-03-26 16:14 | Emergency (ER) | payer MEDICARE, OTHER, SELFPAY ==
[2022-03-26] VITALS (208 sets, daily range): BP systolic 97–119; BP diastolic 43–60; PULSE 57–89; RESP 15–28; TEMP 37; O2SAT 91–98
--- NOTE | 2022-03-26 16:15 | RT.EKG_ITS ---
APPROVED REPORT Exam: Resting ECG Reason for Exam: SOB, Hypoxia Patient Location: E HR:83 bpm ECG Measurements Heart Rate 83 AXIS MD 187 P 46 QRSd 96 QRS 44 QT 341 T -16 QTc 401 Conclusion Sinus rhythm...normal P axis, V-rate 60- 99 sinus rhyhthn, normal axis, normal intervals, T wave inversion II III avF
--- NOTE | 2022-03-26 16:15 | DI.CT_ITS ---
Exam(s) CT CHEST/ABD/PEL W EXAM: CT CHEST/ABD/PEL W CLINICAL HISTORY: Possible Perforated bowel, Free air noted on XR TECHNIQUE: Imaging Protocol: Axial computed tomography images with coronal and sagittal reformatted images were created and reviewed CONTRAST MATERIAL: Intravenous:Visipaque 320 contrast volume:100 mL Oral: No COMPARISON: No exams were available for comparison FINDINGS: The examination is limited due to patient motion artifact. CHEST: Tracheobronchial tree: Patent where visualized. Pulmonary parenchyma: There is a small infiltrate in the left lower lobe and a small left pleural eff usion. No architectural distortion. Visualized thyroid gland: Unremarkable. Mediastinum and Kaylyn: No dominant adenopathy or fluid collection. The esophagus is unremarkable. Pleura: No right pleural effusion or pneumothorax. Heart: The heart is not dilated. Coronary artery calcifications. No pericardial effusion. Pulmonary arteries: The peripheral pulmonary arteries are not well opacified. There are emboli seen in pulmonary arteries centrally at the bifurcations of both left right pulmonary arteries. There are findings in the heart suggesting right heart strain. Aorta: Thoracic aorta non-dilated. Atherosclerosis is present. Lymph nodes: Within normal limits. Tubes, Catheters, and Lines: Ventricular peritoneal shunt tubing is seen along the right chest wall a nteriorly. Soft tissues: Unremarkable. Bones:Within normal limits for the patient's age. ABDOMEN: Liver: Normal density. No measurable mass. Portal, Superior Mesenteric, and Splenic Veins: Unremarkable. Gallbladder and Biliary Tract: No radiodense calculus or dilation. Pancreas: Normal density, no abnormal calcifications or inflammatory process. Spleen: Normal. Adrenals: No masses seen. Kidneys: Normal size, contour and axis. No radiodense stones or obstructive uropathy. No masses seen. There are few tiny hypodensities in the left kidney. They are too small for further characterizatio n but may reflect small cysts. Abdominal Aorta: Abdominal portion non-dilated. Atherosclerosis. Bowel: There is no evidence of bowel obstruction. There is thickening of the wall of the sigmoid col on. Appendix is unremarkable. Peritoneal Cavity: No ascites, collection or mesenteric inflammatory response. There is a moderate a mount of free air within the abdomen. There is a ventriculoperitoneal shunt which terminates in the right upper quadrant. There is a fluid collection to the right of the sigmoid colon which appears to have enhancing wall and may represent an abscess. Lymph Nodes: Within normal limits. Bones: Within normal limits for the patient's age. Soft Tissues: There are bilateral fat containing inguinal hernias. Veins: There appears to be thrombus in the right common and superficial femoral veins. PELVIS: Bladder: The urinary bladder is nondistended with a Ruena catheter in place. There does appear to be diffuse thickening of the wall of the urinary bladder. Reproductive Organs: Prostate gland is enlarged. Lymph Nodes: Within normal limits. Bones: Within normal limits. IMPRESSION: 1. Moderate to large pneumoperitoneum of unclear etiology. 2. Wall thickening and pericolonic inflammatory changes in the sigmoid colon which may represent an i nfectious or inflammatory colitis. 3. Thickening of the wall of the urinary bladder. While this may be due to underdistention the possi bility of a bladder mass or infection should be considered. 4. Thrombus seen in the right superficial and common femoral veins. Ultrasound may be obtained for f urther evaluation. 5. Findings of pulmonary emboli with a question of right heart strain. 6. Left lower lobe infiltrate and small left pleural effusion. RADIATION DOSE DELIVERED: 2,039.58mGy.cm Total DLP DATA REPOSITORY: All CT scans at this facility are submitted to the National Radiology Data Registry (NRDR) Dose Index Registry (DIR) with the [employer] ([employer]). RADIATION OPTIMIZATION: All CT scans at this facility use at least one of these dose optimization te chniques: automated exposure control; mA and/or kV adjustment per patient size (includes targeted exa ms where dose is matched to clinical indication); or iterative reconstruction.
--- NOTE | 2022-03-26 16:31 | W.ED.GENAD ---
Discharge Plan Disposition Patient Disposition: SNF (LEVEL 1) [facility] Condition: Serious Discharge Details Clinical Impression: Perforated bowel, Bilateral pulmonary embolism, DVT (deep venous thrombosis) Primary Care Provider: Jayson Adame ED Provider: Zoie Quintanilla [place] Meds and New Rx's Prescriptions: New oxycodone 5 mg tablet 5 mg PO Q4H PRN (Reason: pain) Qty: 10 0RF Continued vitamin B complex [B Complex-Vitamin B12] Tablet 1 tab PO DAILY Label Comments: Dr Nadeen Delaney just started pt on palliative care and has a more up to date list. No list currently with or patient to confirm meds cholecalciferol (vitamin D3) 25 mcg (1,000 unit) capsule 25 mcg PO DAILY Label Comments: Dr Nadeen Delaney just started pt on palliative care and has a more up to date list. No list currently with or patient to confirm meds albuterol sulfate [Ventolin HFA] 90 mcg/actuation HFA aerosol inhaler 2 puff inhalation Q6H PRN Label Comments: Dr Nadeen Delaney just started pt on palliative care and has a more up to date list. No list currently with or patient to confirm meds loperamide [Imodium A-D] 2 mg tablet 2 mg PO Q6H PRN (Reason: loose stool) Qty: 30 3RF donepezil 10 mg tablet 10 mg PO DAILY Qty: 90 0RF pramipexole 0.375 mg tablet extended release 24 hr 0.375 mg PO QHS Qty: 30 0RF carvedilol [Coreg] 6.25 mg tablet 6.25 mg PO BID Qty: 180 3RF duloxetine [Cymbalta] 20 mg capsule,delayed release(DR/EC) 20 mg PO DAILY megestrol 400 mg/10 mL (40 mg/mL) Suspension 800 mg PO DAILY Qty: 0 0RF trazodone 50 mg Tablet 50 mg PO HS Qty: 0 0RF melatonin 3 mg Tablet 6 mg PO HS Qty: 0 0RF famotidine 20 mg Tablet 20 mg PO HS Qty: 0 0RF tamsulosin 0.4 mg Capsule 0.8 mg PO DAILY Qty: 0 0RF Metamucil Sugar-Free (aspart) 3.4 gram/5.8 gram Powder 1 ea PO BID Qty: 0 0RF morphine concentrate 100 mg/5 mL (20 mg/mL) solution See Rx Instructions PO Q1H PRN MDD 240 mg Qty: 30 0RF Rx Instructions: 0.25-1.0 ml po q 1 hr prn pain or dyspnea lorazepam 0.5 mg tablet 0.5 mg PO BID PRN (Reason: anxiety) Qty: 14 0RF Rx Instructions: for agitation, irritability and anxiety lorazepam 1 mg tablet 1 mg PO Q4H PRN PRN (Reason: anxiety, agitation, nausea or dyspnea) Qty: 7 0RF Rx Instructions: start with 1/2 tab if ineffective, give whole tab bisacodyl [Dulcolax (bisacodyl)] 10 mg Suppository 10 mg NH PRN PRN Fleet Enema 19-7 gram/118 mL Enema 118 ml NH PRN PRN levothyroxine 75 mcg tablet 75 mcg PO QAM Label Comments: Dr Nadeen Delaney just started pt on palliative care and has a more up to date list. No list currently with or patient to confirm meds magnesium hydroxide 400 mg/5 mL Suspension 30 ml PO PRN PRN Discharge Instructions Instructions: Pulmonary Embolism (ED), Perforated Bowel (DC) Additional Instructions: At this time the family has requested care measures only. They would like to keep patient on his normal daily previous medication as long as possible. A bottle of oxycodone 5 mg was given here to take back to [facility]. The prescription was written for oxycodone 5 mg tablet every 4 hours as needed for discomfort or pain. Patient was placed on a care management list and an order was placed for care management to reach out to palliative care for follow-up. Referrals: Jayson Adame [Primary Care Provider] - 1 day Medical Decision Making 81-year-old male presents to the ER via [facility] with bed report of possible free air underneath the diaphragm noted on x-ray which was done earlier today. There is concern for possible perforated bowel. Patient presents with increased work of breathing, O2 sat dropped to 89% on room air. His abdomen is distended to palpation. He does have some expiratory wheezes noted on auscultation of his lungs. He is confused does have a history of Alzheimer's. Other past medical history includes COPD, hypertension, hyperlipidemia, hydrocephalus, CABG, restless legs, hypothyroidism, lung lesion. When asked if he wanted CPR he reports yes when asked if he wanted a breathing tube placed if needed he reports yes, however upon chart review from his previous admission on March 03 the attending physician did speak with his and she would like DNR status. EKG was reviewed by Dr. Hortencia Martinez ER attending, please see his official report. Work-up ordered including serial troponins, CBC, CT, lactate, lipase, chest abdomen pelvis CT with IV contrast. Patient placed on 2 L nasal cannula upon arrival which brought his O2 sat up to 96%. CBC largely at baseline, RBC 3.49, hemoglobin 10.7, hematocrit 33.4, lactate 2.0, potassium 3.3, chloride 111 BUN 18 creatinine 1.2 GFR 67.2 glucose 130 calcium 8.4 urinalysis within normal limits. COVID is pending. Critical lab value received lab troponin is 488. 1754: Received critical COVID-positive result however patient was COVID-positive at the beginning of the month this could be residual. 1804: Spoke with patient's who is in the waiting room regarding update on patient I informed her of patient's COVID-positive status she verbalized understanding. I did discuss DNR/DNI status and possible need for surgery with her if she wishes to reconvene after the results of the CT. Patient 24: Spoke with Dr. Garcia regarding patient case and details, she had requested the abdomen xray was performed. CT abdomen is pending at this time. 2199: Spoke with [facility] radiologist regarding CT results he reports bilateral PEs with also clot burden in the right lower extremity and possible blood clot burden in the left lower extremity. He reports pneumoperitoneum. Possible perforation at the sigmoid colon however it is indeterminate at this time. 1924: Discussed case and CT results at length with and daughter with Dr. Garcia attending. Decision was made for comfort care measures only per the and daughter. We did discuss the risks and benefits of surgery. Shared decision-making performed and everyone involved believe that it would be the best interest of the patient for comfort care measures only. Per Dr. Garcia the post op mortality calculation without added COVID, elevated troponin and pulmonary emboli is at 40%. She did discuss this with the family and the who verbalized understanding. Chet gonzalez hospitalist. 1951: Spoke with Dr. Fair who recommends speaking with [facility] to see if they can facilitate care measures and palliative care with hospice follow up. 2099: Spoke with Randa RN at [facility], she is unable to get ahold of providers at this time, she ijeoma call me back. 2199: Spoke again with [facility] she reports that they can implement care measures only, they report that they will follow the order for care measures discussed plan of care with family they are in agreement with the plan to return to [facility]. They would like to keep patient on his regular medication and I will be sending patient home or back to [facility] with oxycodone tablets. I will place patient to have care management reach out to palliative care to follow-up with patient regarding care measures only, COLST forms and implementing hospice and or care measures only. Patient transferred [facility] to [facility] via EMS. This text was generated using [employer]zuna[employer] system, please disregard any oddities of phrase or misspellings. Medical Records Medical records reviewed: Yes I reviewed the patient's medical records. Imaging Data Radiologic Study: Imaging: CT Scan Radiologist's impression: CT Chest: IMPRESSION: 1. Significant pulmonary embolism burden of the bilateral pulmonary artery bifurcations, incompletely evaluated secondary to phase of contrast, however there does appear to be an element of right heart strain. 2. Small left pleural effusion with associated compressive atelectasis. CT Abd/Pelvis: IMPRESSION: 1. Pneumoperitoneum. The etiology is not clear from the current examination, however there is wall thickening and fatty reticulation of the sigmoid colon through the rectum, as well as non loculated fluid adjacent to the sigmoid colon, which represents the most likely site of perforation. Adjacent fluid may represent organizing phlegmon, without jonah abscess identified. 2. There is probably significant clot burden of the left greater than right lower extremity veins. The study is not tailored for this evaluation. 3. Wall thickening and enhancement of the sigmoid colon through the rectum is a nonspecific finding of colitis, which may be infectious or inflammatory in nature. Stercoral colitis is considered less likely without significant distention of the rectum. 4. Irregular thickened urinary bladder wall with a small amount of free air and a urinary bladder catheter in place. The possibility of urinary bladder mass or infection is not excluded. Thank you for allowing us to participate in the care of your patient. Dictated and Authenticated by: Aamir Champion MD Lab Data Lab results reviewed: Yes I reviewed the patient's lab results. Labs: Laboratory Tests Range/Units 03/26/22 03/26/22 03/26/22 16:35 16:35 16:35 WBC (4.4-10.8) 10^3/uL 8.86 RBC (4.36-5.78) 10^6/uL 3.49 L Hgb (13.5-17.5) g/dL 10.7 L Hct (40.0-50.0) % 33.4 L MCV (80-95) fL 96 H MCH (27.0-33.0) pg 30.7 MCHC (32.0-36.0) % 32.0 RDW (11.8-14.1) % 14.7 H Plt Count (130-400) 10^3/uL 254 MPV (8.0-11.0) fL 10.0 Immature Gran % 2.6 Neutrophils % 73.4 Lymphocytes % 14.8 Monocytes % 4.7 Eosinophils % 4.0 Basophils % 0.5 Nucleated RBC % (0.0-0.3) % 0.0 Absolute Neutrophils (1.2-6.7) 10^3/uL 6.51 Absolute Lymphocytes (1.2-3.4) 10^3/uL 1.31 Absolute Monocytes (0.1-0.8) 10^3/uL 0.42 Absolute Eosinophils (0.0-0.7) 10^3/uL 0.35 Absolute Basophils (0.0-0.2) 10^3/uL 0.04 VBG Lactate (0.6-1.4) mmol/L Sodium (136-145) mmol/L 145 Potassium (3.5-5.1) mmol/L 3.3 L Chloride (98-107) mmol/L 111 H Carbon Dioxide (21.0-32.0) mmol/L 25.3 Anion Gap (3-11) mmol/L 8.7 BUN (7-18) mg/dL 19 H Creatinine (0.70-1.30) mg/dL 1.2 Estimated GFR/1.73 m2 (mL/min/1.73m2) 57.82 Glucose (74-106) mg/dL 130 H Calcium (8.5-10.1) mg/dL 8.4 L Magnesium (1.8-2.4) mg/dL 2.2 Total Bilirubin (0.2-1.0) mg/dL 0.3 AST (15-37) U/L 28 ALT (16-63) U/L 72 H Alkaline Phosphatase (46-116) U/L 61 Troponin I (<or=60) ng/L 488 H* Total Protein (6.4-8.2) g/dL 6.6 Albumin (3.4-5.0) g/dL 2.3 L Lipase (73-393) U/L 103 Urine Color (Yellow) Urine Clarity (Clear) Urine pH (5-8) Ur Specific B[place]er (1.005-1.025) Urine Protein (Negative) mg/dL Urine Ketones (Negative) mg/dL Urine Blood (Negative) Urine Nitrite (Negative) Urine Bilirubin (Negative) Urine Urobilinogen (Up TO 0.2) EU/dL Ur Leukocyte Esterase (Negative) Urine Glucose (Negative) mg/dL COVID-19 Source SARS-CoV-2 (PCR) (Negative) Range/Units 03/26/22 03/26/22 03/26/22 16:35 16:49 16:49 WBC (4.4-10.8) 10^3/uL RBC (4.36-5.78) 10^6/uL Hgb (13.5-17.5) g/dL Hct (40.0-50.0) % MCV (80-95) fL MCH (27.0-33.0) pg MCHC (32.0-36.0) % RDW (11.8-14.1) % Plt Count (130-400) 10^3/uL MPV (8.0-11.0) fL Immature Gran % Neutrophils % Lymphocytes % Monocytes % Eosinophils % Basophils % Nucleated RBC % (0.0-0.3) % Absolute Neutrophils (1.2-6.7) 10^3/uL Absolute Lymphocytes (1.2-3.4) 10^3/uL Absolute Monocytes (0.1-0.8) 10^3/uL Absolute Eosinophils (0.0-0.7) 10^3/uL Absolute Basophils (0.0-0.2) 10^3/uL VBG Lactate (0.6-1.4) mmol/L 2.0 H Sodium (136-145) mmol/L Potassium (3.5-5.1) mmol/L Chloride (98-107) mmol/L Carbon Dioxide (21.0-32.0) mmol/L Anion Gap (3-11) mmol/L BUN (7-18) mg/dL Creatinine (0.70-1.30) mg/dL Estimated GFR/1.73 m2 (mL/min/1.73m2) Glucose (74-106) mg/dL Calcium (8.5-10.1) mg/dL Magnesium (1.8-2.4) mg/dL Total Bilirubin (0.2-1.0) mg/dL AST (15-37) U/L ALT (16-63) U/L Alkaline Phosphatase (46-116) U/L Troponin I (<or=60) ng/L Total Protein (6.4-8.2) g/dL Albumin (3.4-5.0) g/dL Lipase (73-393) U/L Urine Color (Yellow) Yellow Urine Clarity (Clear) Clear Urine pH (5-8) 5.5 Ur Specific Bunker (1.005-1.025) 1.020 Urine Protein (Negative) mg/dL Negative Urine Ketones (Negative) mg/dL Negative Urine Blood (Negative) Negative Urine Nitrite (Negative) Negative Urine Bilirubin (Negative) Negative Urine Urobilinogen (Up TO 0.2) EU/dL 0.2 Ur Leukocyte Esterase (Negative) Negative Urine Glucose (Negative) mg/dL Negative COVID-19 Source Nasal/Nares SARS-CoV-2 (PCR) (Negative) POSITIVE A* Range/Units 03/26/22 20:00 WBC (4.4-10.8) 10^3/uL RBC (4.36-5.78) 10^6/uL Hgb (13.5-17.5) g/dL Hct (40.0-50.0) % MCV (80-95) fL MCH (27.0-33.0) pg MCHC (32.0-36.0) % RDW (11.8-14.1) % Plt Count (130-400) 10^3/uL MPV (8.0-11.0) fL Immature Gran % Neutrophils % Lymphocytes % Monocytes % Eosinophils % Basophils % Nucleated RBC % (0.0-0.3) % Absolute Neutrophils (1.2-6.7) 10^3/uL Absolute Lymphocytes (1.2-3.4) 10^3/uL Absolute Monocytes (0.1-0.8) 10^3/uL Absolute Eosinophils (0.0-0.7) 10^3/uL Absolute Basophils (0.0-0.2) 10^3/uL VBG Lactate (0.6-1.4) mmol/L Sodium (136-145) mmol/L Potassium (3.5-5.1) mmol/L Chloride (98-107) mmol/L Carbon Dioxide (21.0-32.0) mmol/L Anion Gap (3-11) mmol/L BUN (7-18) mg/dL Creatinine (0.70-1.30) mg/dL Estimated GFR/1.73 m2 (mL/min/1.73m2) Glucose (74-106) mg/dL Calcium (8.5-10.1) mg/dL Magnesium (1.8-2.4) mg/dL Total Bilirubin (0.2-1.0) mg/dL AST (15-37) U/L ALT (16-63) U/L Alkaline Phosphatase (46-116) U/L Troponin I (<or=60) ng/L 413 H* Total Protein (6.4-8.2) g/dL Albumin (3.4-5.0) g/dL Lipase (73-393) U/L Urine Color (Yellow) Urine Clarity (Clear) Urine pH (5-8) Ur Specific B[place]er (1.005-1.025) Urine Protein (Negative) mg/dL Urine Ketones (Negative) mg/dL Urine Blood (Negative) Urine Nitrite (Negative) Urine Bilirubin (Negative) Urine Urobilinogen (Up TO 0.2) EU/dL Ur Leukocyte Esterase (Negative) Urine Glucose (Negative) mg/dL COVID-19 Source SARS-CoV-2 (PCR) (Negative) ECG Data Prior ECG tracings: available for review HPI General Mode of arrival: EMS. Date/Time Provider Initiated Documentation: 03/26/22 16:17. Limitations to Documentation: physical limitation (Hx Alzheimers). Information obtained by: patient, RN/MD ([facility]), EMS, RN notes reviewed and old records reviewed. HPI Narrative: 81-year-old male presents to the ER via [facility] with bed report of possible free air underneath the diaphragm noted on x-ray which was done earlier today. There is concern for possible perforated bowel. Patient presents with increased work of breathing, O2 sat dropped to 89% on room air. His abdomen is distended to palpation. He does have some expiratory wheezes noted on auscultation of his lungs. He is confused does have a history of Alzheimer's. Other past medical history includes COPD, hypertension, hyperlipidemia, hydrocephalus, CABG, restless legs, hypothyroidism, lung lesion. When asked if he wanted CPR he reports yes when asked if he wanted a breathing tube placed if needed he reports yes, however upon chart review from his previous admission on March 03 the attending physician did speak with his and she would like DNR status. Related Data Home Medications Medication Instructions Recorded Confirmed donepezil 10 mg tablet 10 mg PO DAILY #90 tabs 09/24/21 03/26/22 duloxetine 20 mg capsule,delayed 20 mg PO DAILY 09/24/21 03/26/22 release (Cymbalta) pramipexole 0.375 mg 0.375 mg PO QHS #30 tabs 09/24/21 03/26/22 tablet,extended release 24 hr albuterol sulfate 90 mcg/actuation 2 puff inhalation Q6H PRN 01/08/22 03/26/22 aerosol inhaler (Ventolin HFA) cholecalciferol (vitamin D3) 25 25 mcg PO DAILY 01/08/22 03/26/22 mcg (1,000 unit) capsule loperamide 2 mg tablet (Imodium 2 mg PO Q6H PRN loose stool #30 01/08/22 03/26/22 A-D) tabs vitamin B complex (B 1 tab PO DAILY 01/08/22 03/26/22 Complex-Vitamin B12 tablet) carvedilol 6.25 mg tablet (Coreg) 6.25 mg PO BID #180 tabs 01/13/22 03/26/22 famotidine 20 mg tablet 20 mg PO HS #0 tabs 03/11/22 03/26/22 lorazepam 0.5 mg tablet 0.5 mg PO BID PRN anxiety #14 tabs 03/11/22 lorazepam 1 mg tablet 1 mg PO Q4H PRN PRN anxiety, 03/11/22 agitation, nausea or dyspnea #7 tabs megestrol 400 mg/10 mL (40 mg/mL) 800 mg (20 mL) PO DAILY #0 mL 03/11/22 03/26/22 oral suspension melatonin 3 mg tablet 6 mg PO HS #0 tabs 03/11/22 03/26/22 morphine concentrate 100 mg/5 mL See Rx Instructions PO Q1H PRN #30 03/11/22 03/26/22 (20 mg/mL) oral solution mL psyllium husk (aspartame) 3.4 1 ea PO BID #0 grams 03/11/22 03/26/22 gram/5.8 gram oral powder (Metamucil Sugar-Free (aspartame)) tamsulosin 0.4 mg capsule 0.8 mg PO DAILY #0 caps 03/11/22 03/26/22 trazodone 50 mg tablet 50 mg PO HS #0 tabs 03/11/22 03/26/22 bisacodyl 10 mg rectal suppository 10 mg NH PRN PRN 03/26/22 03/26/22 (Dulcolax (bisacodyl)) levothyroxine 75 mcg tablet 75 mcg PO QAM 03/26/22 03/26/22 magnesium hydroxide 400 mg/5 mL 30 ml PO PRN PRN 03/26/22 03/26/22 oral suspension oxycodone 5 mg tablet 5 mg PO Q4H PRN pain #10 tabs 03/26/22 sodium phosphates 19 gram-7 118 ml NH PRN PRN 03/26/22 03/26/22 gram/118 mL enema (Fleet Enema) Previous Rx's Medication Instructions Recorded donepezil 10 mg tablet 10 mg PO DAILY #90 tabs 09/24/21 pramipexole 0.375 mg 0.375 mg PO QHS #30 tabs 09/24/21 tablet,extended release 24 hr loperamide 2 mg tablet (Imodium 2 mg PO Q6H PRN loose stool #30 01/08/22 A-D) tabs carvedilol 6.25 mg tablet (Coreg) 6.25 mg PO BID #180 tabs 01/13/22 famotidine 20 mg tablet 20 mg PO HS #0 tabs 03/11/22 lorazepam 0.5 mg tablet 0.5 mg PO BID PRN anxiety #14 tabs 03/11/22 lorazepam 1 mg tablet 1 mg PO Q4H PRN PRN anxiety, 03/11/22 agitation, nausea or dyspnea #7 tabs megestrol 400 mg/10 mL (40 mg/mL) 800 mg (20 mL) PO DAILY #0 mL 03/11/22 oral suspension melatonin 3 mg tablet 6 mg PO HS #0 tabs 03/11/22 morphine concentrate 100 mg/5 mL See Rx Instructions PO Q1H PRN #30 03/11/22 (20 mg/mL) oral solution mL psyllium husk (aspartame) 3.4 1 ea PO BID #0 grams 03/11/22 gram/5.8 gram oral powder (Metamucil Sugar-Free (aspartame)) tamsulosin 0.4 mg capsule 0.8 mg PO DAILY #0 caps 03/11/22 trazodone 50 mg tablet 50 mg PO HS #0 tabs 03/11/22 oxycodone 5 mg tablet 5 mg PO Q4H PRN pain #10 tabs 03/26/22 Allergies Allergy/AdvReac Type Severity Reaction Status Date / Time clindamycin Allergy Intermediate rash/hives Verified 03/03/22 03:07 General Stated Complaint: Abd Prob BAUTISTA: 3 Review of Systems All systems reviewed & are unremarkable except as noted in HPI and below PFSH All Active Problems (Updated 03/26/22 @ 22:12 by Zoie Quintanilla) Perforated bowel (Acute) Bilateral pulmonary embolism (Acute) DVT (deep venous thrombosis) (Chronic) Palliative care patient (Acute) Discharge planning issues (Acute) Urinary retention (Acute) Anemia (Chronic) Atelectasis of both lungs (Acute) COVID-19 (Acute) Irritability (Acute) Encounter for hospice care discussion (Acute) Encounter for hospice care (Acute) Decreased activities of daily living (ADL) (Acute) At high risk for skin breakdown (Acute) Restless leg (Acute) Need for home health care (Acute) History of quadruple bypass (Acute) Cough (Acute) Alzheimer disease (Chronic) Advanced directives, counseling/discussion (Acute) Poor balance (Acute) Weakness generalized (Acute) At high risk for falls (Acute) Hypothyroidism (Acute) Cough (Acute) Shortness of breath (Acute) Lesion of lung (Acute) Medical History Bronchitis COPD (chronic obstructive pulmonary disease) HTN (hypertension) Hx of hyperlipidemia Hydrocephalus with shunt Palliative care patient Thyroid disease Surgical History 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 Daughter No problems noted. Daughter No problems noted. Maternal Grandfather , 64 Heart disease Paternal Grandfather , 64 Heart disease Maternal Grandmother , 97 No problems noted. Paternal Grandmother , 66 No problems noted. Social History Smoking/Tobacco Use Status: Former Tobacco Use tobacco type: cigarettes and pipe Quit Date: 09/02/82 Tobacco: How many years used: 31 Second Hand Exposure: No Smoking risk assessment performed?: Yes Alcohol Intake: current Alcohol Intake frequency: holidays/special occasions only Alcohol type: wine and hard liquor Drug use: Never Substance use type: does not use Household members: spouse and family Housing: apartment Communication Needs: None Do you need help understanding health information?: Rarely Pets and animals: Yes Pets and animals: dog(s) Sexually active: No Do you think of yourself as: straight/heterosexual Current gender identity: male What is your relationship status?: living with partner How often do you talk on the phone with friends or family?: never How often do you get together with friends or relatives?: twice per week How often do you attend jainism or episcopalian services?: 1-3 times per year Do you belong to any clubs or organized social groups?: no Panel score (0-1 are the most socially isolated patients): 1 What type of physical activity do you participate in: none, wheelchair-bound and decreased ROM & activity Frequency: does not exercise Deyanira/Episcopalian: Congregation Special deyanira needs: Yes (last rights) Seatbelt use: always Helmet use: Yes Helmet use: always Drive intox or ride w/intox entry level truck driver: No Do you feel safe at home: Yes Do you feel safe in your relationship?: Yes Exam Narrative Exam Narrative: Constitutional: Awake, confused poor historian unable to verbalize situation. Appears stated age. Normal body habitus. Head: Normocephalic, no trauma. Eyes: Pupils PERRL, Red reflex noted, EOM's intact. Eyelids symmetrical without lesions, discharge, or swelling. ENT: Bilateral TM's WNL, External ear normal to inspection, no mastoid TTP, swelling, or erythema, Nasal turbinates WNL, no nasal discharge. Normal dentition, Posterior pharynx WNL, no exudate. Chest: RRR, Normal S1, S2, distal pulses intact. Resp: Scattered wheezes bilaterally throughout increased work of breathing. Abdomen: Distended, tympanic, no pain response elicited with palpation. Hypoactive bowel sounds. Musculoskeletal: Unable to assess gait. Cool extremities noted. Skin: No suspicious rashes or lesions. Neurologic: Generally weak, no focal neurodeficits noted confused, per staff report and family at baseline Hematologic/Lymphatic: No ecchymosis, no lymphadenopathy. Course Vital Signs Vital signs: Vital Signs Temperature 37 C 03/26/22 16:16 Pulse 88 03/26/22 16:16 Respiratory Rate 28 H 03/26/22 16:16 Blood Pressure 118/52 L 03/26/22 16:16 Pulse Oximetry 91 L 03/26/22 16:16 Temperature 37 C 03/26/22 16:16 Temperature Source Skin 03/26/22 16:16 Pulse 88 03/26/22 16:16 Respiratory Rate 28 H 03/26/22 16:16 Blood Pressure 118/52 L 03/26/22 16:16 Pulse Oximetry 91 L 03/26/22 16:16 Oxygen Delivery Method Room Air 03/26/22 16:16 Oxygen Flow Rate 0 03/26/22 16:16 Pain Level 0 03/26/22 16:16
[2022-03-26 16:44] LABS: Abs Immature Grans 0.23 10^3/uL (0.0-0.06); Absolute Basophil Count 0.04 10^3/uL (0.0-0.2); Absolute Eosinophil Count 0.35 10^3/uL (0.0-0.7); Absolute Lymphocyte Count 1.31 10^3/uL (1.2-3.4); Absolute Monocyte Count 0.42 10^3/uL (0.1-0.8); Absolute Neutrophil Count 6.51 10^3/uL (1.2-6.7); Basophils % 0.5; HCT 33.4 % (40.0-50.0); HGB 10.7 g/dL (13.5-17.5); Immature Grans % 2.6; Lymphocytes % 14.8; MCH 30.7 pg (27.0-33.0); MCV 96 fL (80-95); Monocytes % 4.7; Neutrophils % 73.4; Platelet Count 254 10^3/uL (130-400); RBC 3.49 10^6/uL (4.36-5.78); RDW 14.7 % (11.8-14.1); WBC 8.86 10^3/uL (4.4-10.8)
[2022-03-26 16:59] LABS: Lipase 103 U/L (73-393)
--- NOTE | 2022-03-26 17:02 | NUR.NOTE ---
16fr jolley inserted per [employer] order, sterile technique applied, leg securring device applied, 2 person assist. 300ml drainage noted.
[2022-03-26 17:04] LABS: Source Nasal/Nares
[2022-03-26 17:04] LABS: ALT 72 U/L (16-63); AST 28 U/L (15-37); Albumin 2.3 g/dL (3.4-5.0); Alkaline Phosphatase 61 U/L (46-116); Anion Gap 8.7 mmol/L (3-11); BUN 19 mg/dL (7-18); Bilirubin, Total 0.3 mg/dL (0.2-1.0); CO2 25.3 mmol/L (21.0-32.0); CREATININE 1.2 mg/dL (0.70-1.30); Calcium 8.4 mg/dL (8.5-10.1); Chloride 111 mmol/L (98-107); Estimated GFR 57.82 (mL/min/1.73m2); Glucose 130 mg/dL (74-106); Magnesium 2.2 mg/dL (1.8-2.4); Potassium 3.3 mmol/L (3.5-5.1); Sodium 145 mmol/L (136-145); Total Protein 6.6 g/dL (6.4-8.2)
[2022-03-26 17:07] LABS: Bilirubin Negative (Negative); Blood Negative (Negative); Clarity Clear (Clear); Glucose Negative (Negative); Ketones Negative (Negative); Leukocyte Esterase Negative (Negative); Nitrite Negative (Negative); Urobilinogen 0.2 EU/dL (Up TO 0.2); pH 5.5 (5-8)
[2022-03-26 17:14] LABS: Troponin I 488 ng/L (<or=60)
--- NOTE | 2022-03-26 17:20 | DI.RAD_ITS ---
Exam(s) XR ABDOMEN FLAT UPRIGHT EXAM: 2D digital imaging was performed. CLINICAL HISTORY: R/O Perf. COMPARISON: No exams were available for comparison TECHNIQUE: Supine and Lateral views of the abdomen was performed. Five images were obtained. FINDINGS: LUNG BASES: There is an infiltrate seen in the left lower lobe. BOWEL GAS PATTERN: Nondistended. FREE AIR: A large amount of free air seen beneath the hemidiaphragms. CALCIFICATIONS: No radiopaque calcifications. OSSEOUS STRUCTURES: Normal for age. OTHER FINDINGS: The distal aspect of a ventriculoperitoneal shunt is in place. There is a Urena cath eter in place. IMPRESSION: Large pneumoperitoneum. DATA REPOSITORY: RADIATION DOSE DELIVERED:
[2022-03-26] MEDS: Normal Saline Flush 10 ML SYR IVP (17:26)
[2022-03-26 17:58] LABS: COVID-19 PCR POSITIVE (Negative)
--- NOTE | 2022-03-26 19:07 | DI.VRAD_ITS ---
Addendum created by Aamir Champion MD on 03/26/2022 7:06:57 PM EDT: THIS REPORT CONTAINS FINDINGS THAT MAY BE CRITICAL TO PATIENT CARE. The findings were verbally communicated via telephone conference with MYLENE VASQUEZ at 7:00 PM EDT on 03/26/2022. The findings were acknowledged and understood. Initial report created on 03/26/2022 7:06:40 PM EDT: PROCEDURE INFORMATION: Exam: CT Chest With Contrast; Diagnostic Exam date and time: 03/26/2022 5:29 PM Age: 81 years old Clinical indication: Other: R/O perforated bowel; Other: Unknown TECHNIQUE: Imaging protocol: Diagnostic computed tomography of the chest with contrast. 3D rendering (Not supervised by radiologist): MIP and/or 3D reconstructed images were created by the technologist. Contrast material: VISIPAQUE 320; Contrast volume: 100 ml; Contrast route: INTRAVENOUS (IV); COMPARISON: CR XR CHEST 2V PA LATERAL 03/26/2022 2:57 PM FINDINGS: Limitations: The examination is degraded by patient motion artifact. Diagnostic information is still obtained. Tubes, catheters and devices: Right anterior chest ventriculoperitoneal shunt appears grossly intact. Lungs: Compressive atelectasis at the left lung base. Pleural spaces: Small left pleural effusion. Heart: Moderate to severe coronary artery calcification. The patient is status post coronary artery bypass graft. Heart RV/LV ratio: 1.4 Lymph nodes: Unremarkable. No enlarged lymph nodes. Vasculature: Calcification at the aortic and mitral annuli. Atherosclerosis of the thoracic aorta. Bilateral pulmonary emboli are suboptimally evaluated secondary to phase of contrast administration, however there are at least emboli at the left and right pulmonary artery bifurcations. Bones/joints: Status post median sternotomy. Degenerative changes of the shoulders and thoracic spine are appreciated. There are postoperative changes of the cervical spine, incompletely evaluated. Soft tissues: Unremarkable. IMPRESSION: 1. Significant pulmonary embolism burden of the bilateral pulmonary artery bifurcations, incompletely evaluated secondary to phase of contrast, however there does appear to be an element of right heart strain. 2. Small left pleural effusion with associated compressive atelectasis. PROCEDURE INFORMATION: Exam: CT Abdomen And Pelvis With Contrast Exam date and time: 03/26/2022 5:29 PM Age: 81 years old Clinical indication: Other: R/O perforated bowel; Other: Unknown TECHNIQUE: Imaging protocol: Computed tomography of the abdomen and pelvis with contrast. 3D rendering (Not supervised by radiologist): MIP and/or 3D reconstructed images were created by the technologist. Contrast material: VISIPAQUE 320; Contrast volume: 100 ml; Contrast route: INTRAVENOUS (IV); COMPARISON: US ABDOMEN LIMITED 03/03/2022 10:15 AM FINDINGS: Limitations: The examination is degraded by patient motion artifact. Diagnostic information is still obtained. Tubes, catheters and devices: Ventriculoperitoneal shunt catheter terminates at the right upper quadrant. Urinary bladder catheter appears appropriate in position. Lungs: Wall thickening of the distal sigmoid colon through the rectum, with pericolonic fatty reticulation and fluid. Liver: Normal. No mass. Gallbladder and bile ducts: Normal. No calcified stones. No ductal dilation. Pancreas: Normal. No ductal dilation. Spleen: Normal. No splenomegaly. Adrenal glands: Normal. No mass. Kidneys and ureters: Small hypodensities of the kidneys are too small to accurately characterize, likely reflecting cysts. Stomach and bowel: Unremarkable. No obstruction. No mucosal thickening. Appendix: No evidence of appendicitis. Intraperitoneal space: Moderate to large pneumoperitoneum. Vasculature: Moderate atherosclerosis of the abdominal aorta. There is likely significant venous thrombosis of the visualized right common and superficial femoral veins, as well as diffusely through the left iliac veins. Lymph nodes: Unremarkable. No enlarged lymph nodes. Urinary bladder: Irregular wall thickening and air of the urinary bladder. Reproductive: Status post vasectomy. Bones/joints: Diffuse [id number] degenerative changes of the lumbar spine. Bridging osteophytes and partial ankylosis of the sacroiliac joints. [id number] degenerative changes of the hips. Soft tissues: Unremarkable. Other findings: Somewhat loculated fluid of the right lower quadrant with peripheral enhancement, consistent with organizing phlegmon. No jonah abscess is identified. IMPRESSION: 1. Pneumoperitoneum. The etiology is not clear from the current examination, however there is wall thickening and fatty reticulation of the sigmoid colon through the rectum, as well as non loculated fluid adjacent to the sigmoid colon, which represents the most likely site of perforation. Adjacent fluid may represent organizing phlegmon, without jonah abscess identified. 2. There is probably significant clot burden of the left greater than right lower extremity veins. The study is not tailored for this evaluation. 3. Wall thickening and enhancement of the sigmoid colon through the rectum is a nonspecific finding of colitis, which may be infectious or inflammatory in nature. Stercoral colitis is considered less likely without significant distention of the rectum. 4. Irregular thickened urinary bladder wall with a small amount of free air and a urinary bladder catheter in place. The possibility of urinary bladder mass or infection is not excluded. Dictated and Authenticated by: Aamir Champion MD. Ordering:ELIESER Lino MD
--- NOTE | 2022-03-26 19:09 | DI.VRAD_ITS ---
PROCEDURE INFORMATION: Exam: XR Abdomen Exam date and time: 03/26/2022 5:45 PM Age: 81 years old Clinical indication: Other: R/O perforated bowel; Abdominal pain; Other: Unknown TECHNIQUE: Imaging protocol: XR of the abdomen. Views: 2 Views. Upright and supine views. COMPARISON: CT CHEST/ABD/PEL W 03/26/2022 5:29 PM FINDINGS: Tubes, catheters and devices: Ventriculoperitoneal shunt terminates at the right upper quadrant. Urinary bladder catheter in place. Gastrointestinal tract: Normal. No bowel dilation. Intraperitoneal space: Large volume of pneumoperitoneum with Rigler's sign. Bones/joints: Moderate degenerative changes of the lumbar spine and pelvis. Soft tissues: Status post vasectomy. IMPRESSION: Pneumoperitoneum. This finding was discussed with the ordering provider in conjunction with the CT examination. Please see that report. Dictated and Authenticated by: Aamir Champion MD. Ordering:ELIESER Lino MD
[2022-03-26 20:46] LABS: Troponin I 413 ng/L (<or=60)
--- NOTE | 2022-03-26 23:52 | NUR.NOTE ---
Referral to Care Management to get palliative care consult for patient at [facility]&.Nursing Note:
== END 2022-03-26 22:38 | disposition skilled nursing facility (03) ==
PROVIDERS: Emergency Provider Registered Nurse Emergency; PCP Family Medicine
DX: K63.1 Perforation of intestine (nontraumatic) (principal); I26.99 Other pulmonary embolism without acute cor pulmonale; Z86.16 Personal history of COVID-19; I82.491 Acute embolism and thrombosis of other specified deep vein of right lower extremity; R06.02 Shortness of breath; R09.02 Hypoxemia
CPT/HCPCS: 51702; 74177; 80053; 83690; 87635; 93005; 99284; 99285; 71260; 74019; 81003; 83605; 83735; 84484; 85025; 93010

== ENCOUNTER 2022-03-31 22:50 | Outpatient (REF) | payer SELFPAY ==
[2022-04-01 01:28] LABS: Bilirubin Negative (Negative); Blood Large (Negative); Glucose Negative (Negative); Ketones Negative (Negative); Leukocyte Esterase Trace (Negative); Nitrite Negative (Negative); Specific Gravity 1.015 (1.005-1.025); Urobilinogen 0.2 EU/dL (Up TO 0.2)
[2022-04-01 01:33] LABS: Clarity Sl Cloudy (Clear)
[2022-04-01 01:50] LABS: C & S Indicated? C&S Done As Ordered; RBC >50 HPF (0-2)
== END 2022-03-31 22:51 | disposition home or self-care (01) ==
LOC: LBN 22:50
PROVIDERS: PCP Family Medicine; Visit Provider Family Medicine
DX: R33.9 Retention of urine, unspecified (principal)
CPT/HCPCS: 87077; 81003; 81015; 87086; 87186